=== PATIENT | male | born 1960 | race Caucasian/White ===

== ENCOUNTER 2022-01-12 22:41 | Emergency (ER) | payer BC, SELFPAY ==
[2022-01-12 23:01] VITALS: BP 131/82; PULSE 68; RESP 18; TEMP 35.5; O2SAT 95; BMI 27.9
--- NOTE | 2022-01-13 00:35 | ED.ABDPAIN ---
HPI - Abdominal Pain General Chief Complaint: Unspecified Complaint, Adult Stated Complaint: Large lump on abdomen Time Seen by Provider: 01/12/22 23:47 History of Present Illness HPI narrative: 61-year-old man presenting to the emergency department with concern of abdominal mass/swelling. 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 Last night belly was really tented up centrally he demonstrates and rather alarming. Admittedly upon waking this morning was mproved. Indicates that he was pushing on abdomen here in the ER little bit left of center feeling gurgling but that seems to have resolved. Normal bowel pattern. Does not indicate that he has been straining at stool. No melena or hematochezia is described. No nausea. Is seeing Urology for urgency. Has been taking a couple tabs of Advil p.m. most nights. Is wondering whether he should be continuing ibuprofen. Some chronic pain with radiculitis of the neck and shoulder anticipating further injections. Related Data Home Medications Medication Instructions Recorded Confirmed fluticasone furoate 200 inhalation 01/12/22 mcg-vilanterol 25 mcg/dose inhalation powder (Breo Ellipta) meloxicam 15 mg tablet mg 01/12/22 omeprazole magnesium PO Heart Burn 01/12/22 oxybutynin chloride 10 mg mg PO 01/12/22 tablet,extended release 24 hr tamsulosin 0.4 mg capsule mg PO 01/12/22 trospium 60 mg capsule,extended mg PO 01/12/22 release 24 hr Allergies Allergy/AdvReac Type Severity Reaction Status Date / Time No Known Drug Allergies Allergy Verified 01/12/22 23:12 Review of Systems Status of ROS Reports: 6 or more systems reviewed and unremarkable except as noted in History and below Exam Narrative: Exam Narrative: Pleasant. NAD. A little hard of hearing. Moving all extremities without difficulty. Transitions without difficulty. Breathing easily. Lungs clear. Cardiovascular with regular rate and rhythm Abdomen normoactive bowel sounds. Is soft. Ventral defect is noted a few inches caudal to the umbilicus. Increasing abdominal pressure/sitting up confirms moderate diastasis recti. I do not appreciate anything extruding through. No erythema no particular tenderness. Const: Vital Signs, click to edit/add: Vital Signs - 24 hr 01/12/22 23:01 Temperature 95.9 F L Pulse Rate [Right Pulse Oximeter] 68 Respiratory Rate 18 Blood Pressure [Ri ght Upper Arm] 131/82 Pulse Oximetry 95 Oxygen Delivery Me thod Room Air Documenting provider has reviewed patient's vital signs: yes Course Vital Signs Vital signs: Initial Vital Signs Temperature 95.9 F L 01/12/22 23:01 Temperature Source Temporal Artery Scan 01/12/22 23:01 Pulse Rate 68 01/12/22 23:01 Pulse Rhythm 01/12/22 23:01 Pulse Strength 3+ Normal 01/12/22 23:01 Respiratory Rate 18 01/12/22 23:01 Blood Pressure 131/82 01/12/22 23:01 Blood Pressure Mean 98 01/12/22 23:01 Blood Pressure Position Sitting 01/12/22 23:01 Pulse Oximetry 95 01/12/22 23:01 Oxygen Delivery Method 01/12/22 23:01 Vital Signs Temperature 95.9 F L 01/12/22 23:01 Pulse Rate 68 01/12/22 23:01 Respiratory Rate 18 01/12/22 23:01 Blood Pressure 131/82 01/12/22 23:01 Pulse Oximetry 95 01/12/22 23:01 Oxygen Delivery Method 01/12/22 23:01 Temperature 95.9 F L 01/12/22 23:01 Pulse Rate 68 01/12/22 23:01 Respiratory Rate 18 01/12/22 23:01 Blood Pressure 131/82 01/12/22 23:01 Pulse Oximetry 95 01/12/22 23:01 Oxygen Delivery Method 01/12/22 23:01 MDM - Abdominal Pain MDM Narrative Medical decision making narrative: There is not appear to be any persistent herniation here at this time I wonder if diphenhydramine that he has been taking regularly in his combination sleep med is contributing to some urinary symptoms? Medical Records Attestation: I reviewed the patient's medical records. Discharge Plan Discharge Clinical Impression: Ventral hernia, Diastasis recti Patient Disposition: Home, Self-Care Condition: Improved Additional Instructions: Do try not to strain at stool. Be sure to stay well hydrated to keep stool soft in this regard. If you have persistent swelling at this area and especially if it is uncomfortable/painful, lay down flat on the floor on your back. Be sure your head is back. Bring your knees up keeping your feet flat on the floor to soften your belly. Begin to massage gently to try to push the lump back in. If you can not accomplish this and pain is persisting, see redness, be seen/return to the emergency department for evaluation. You might want to make an appointment with General surgery to discuss this here if it begins to causing more trouble. Surgery might be a possibility. As far as your pain medication goes, yes chronic use of ibuprofen can cause stomach pain, ulcers, gastritis among other things. Usually helps to take it with a little bit of food or perhaps if you are also accompanying at at least once daily with a proton pump inhibitor like Prilosec/omeprazole. Meloxicam is not entirely benign with regard to similar effects on the stomach. There are number of options for sleep aids in addition to diphenhydramine; as discussed doxylamine and melatonin being some of these. Depending on your needs and side effects, there might be better alternatives for you. You might want to have a follow-up visit to discuss them with your primary care provider. Prescriptions: No Action oxybutynin chloride 10 mg tablet extended release 24hr PO meloxicam 15 mg tablet Label Comments: TAKE 1 TABLET BY MOUTH DAILY WITH FOOD tamsulosin 0.4 mg capsule PO trospium 60 mg capsule,extended release 24hr PO fluticasone furoate-vilanterol [Breo Ellipta] 200-25 mcg/dose blister with device INHALATION Label Comments: INHALE 1 PUFF BY MOUTH DAILY omeprazole magnesium [[employer] (omeprazole)] PO Follow Up/Referrals: Gabe Ma MD [Primary Care Provider] - Stand Alone Forms: [employer] Info Instructions
--- OUTSIDE RECORDS SUMMARY | 2022-01-13 00:51 | XMS_ITS | Clinical Summary ---
:1960 Author Organization [facility] [place] [address] Care Team Providers Name Role Phone Gabe Ma MD Primary Care Provider [phone] Allergies No known active allergies Medications Medication Sig Dispensed Refills Start Date End Date Status loratadine (CLARITIN) Take 1 tablet by 0 01/12/2016 Active 10 mg tablet mouth once daily. omeprazole Take 1 tablet by 0 08/26/2016 A ctive (PRILOSEC-OTC) 20 mg mouth once daily. tabletIndications: Chronic GERD aspirin chewable 81 mg Take 1 tablet by 0 07/05/2018 Active chewable tablet mouth once daily with a meal. albuterol HFA 90 Inhale 1-2 Puffs 1 Inhaler 1 06/25/2019 Active mcg/actuation by mouth every 4 inhalerIndications: hours if needed. Exacerbation of asthma, unspecified asthma severity, unspecified whether persistent tamsulosin (FLOMAX) Take 2 Capsules 60 Capsule 12 03/01/2021 Active 0.4 mg (0.8 mg) by mouth capsuleIndications: once daily after BPH without urinary a meal. obstruction benzonatate (TESSALON) Take 1-2 Capsules 30 Capsule 0 04/20/20 Active 100 mg (100-200 mg) by capsuleIndications: mouth 3 times Bronchitis daily if needed for Cough. albuterol HFA Inhale 2 Puffs by 1 Each 0 04/20/2021 Active (PRO-AIR; VENTOLIN; mouth every 4 PROVENTIL) 90 hours if needed mcg/actuation (cough or inhalerIndications: wheezing). Bronchitis trospium 60 mg Take 1 Capsule 30 Capsule 11 06/21/2021 Active Extended-Release (60 mg) by mouth capsuleIndications: once daily before Overactive bladder a meal. Breo Ellipta INHALE 1 PUFF BY 60 Each 12 07/25/2021 Active 200mcg/25mcg MOUTH DAILY inhalerIndications: Exacerbation of asthma, unspecified asthma severity, unspecified whether persistent Active Problems Problem Noted Date Benign essential HTN 01/01/2021 Chronic GERD 01/01/2021 BPH without urinary obstruction 01/01/2021 Dysphagia, unspecified(787.20) 01/27/2016 Overview: EGD 12/2015 normal, small hiatal hernia, try omeprazole Allergic rhinitis due to pollen 08/25/2015 Osteoarthritis of hand 08/25/2015 Varicose vein of leg 08/25/2015 Right varicocele 08/25/2015 Resolved Problems Problem Noted Date Resolved Date Routine adult health maintenance 12/26/2018 020 Overview: Colonoscopy 11/2018 diverticulosis, repea t in 10 years Mild intermittent asthma without complication 08/25/2015 06/28/2021 Encounters Date Type Specialty Care Team Description 01/12/2022 Travel 01/12/2022 Nurse Triage Gabe Ma MD Abdominal Injury 11/26/2021 Orders Only Scanner <No scans attac hed> from Last 3 Months Immunizations Name Administration Dates Next Due Influenza, IIV3 (Age 6-35 mos) 04/28/2017 Influenza, IIV4 01/30/2018 Tetanus Toxoid, Unspecified 04/04/2016 Family History Medical History Relation Name Comments Heart Disease Father Hyperlipidemia Father Hypertension Father Seizures Sister Anesthesia Problem No Family History Relation Name Status Comments Father Sister Social History Tobacco Use Types Packs/Day Years Used Date Never Smoker Smokeless Tobacco: Never Used Tobacco Cessation: Counseling Given: Yes Alcohol Use Standard Drinks/Week Comments Not Currently 14 (1 standard drink = 0.6 oz pure alcoh ol) quit 10/2018 Alcohol Habits Answer Date Recorded How often do you have a drink containing 4 or more times a w orutsararmiut 07/05/2018 alcohol? How many drinks containing alcohol do you have 3 or 4 07/05/2018 on a typical day when you are drinking? How often do you have six or more drinks on one Weekly 07/20/2018 occasion? Comment: quit 10/201811/07/2019 Sex Assigned at Date Recorded Not on file COVID-19 Exposure Response Date Recorded In the last 10 days, have you been in contact with No / Unsu re 01/12/2022 4:10 PM CDT someone who was confirmed or suspected to have Coronavirus/COVID-19? 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 Height 171.5 cm (5' 7.52) 01/01/2021 3:54 PM CDT Body Mass Index 28.05 01/01/2021 3:54 PM CDT Plan of Treatment Health Maintenance Due Date Last Done Comments COVID-19 vaccine series (#1) 05/14/1960 Pneumococcal series for age 19-64 11/11/1965 (1 - PCV) Tdap 11/11/1970 Zoster (shingles) series for age 0711/11/2009 50+ (1 of 2) Depression screening for age 12+ 11/06/2020 11/07/2019, 06/2017, 08/26/2016, Additional history exists Influenza for age 50-64 12/30/2021 01/30/2018 BMI (ht and wt on same day) for 01/01/2022 01/01/2021, 09/0 06/2020, age 18+ 08/07/2020, Additional history exists Lipids for age 45-75 11/06/2024 11/07/2019, 07/20/2018, 08/25/2015 Tetanus booster 04/05/2026 04/05/2016 [facility] Colonoscopy through age 75 12/26/2028 12/26/2018, 9, 12/26/2018, Additional history exists Hepatitis C screening for age Completed 08/06/2018, 2015 18-79 Procedures Procedure Name Priority Date/Time Associated Diagnosis Comme nts SCAN-OPERATIVE/PROC 11/26/2021 12:00 AM R esults for this EDURE REPORT CDT procedure are i n the results section. from Last 3 Months Results SCAN-OPERATIVE/PROCEDURE REPORT (11/26/2021 12:00 AM CDT) Narrative This result has an attachment that is no t available. Scanner OTHER from Last 3 Months Insurance Payer Benefit Plan / Subscriber ID Effective Dates Phone Addre ss Type Group [employer] [id number] 2020-Presen [address] [address] [place] t [facility], [place] [address] [employer] [place] [employer] [id number] 2018-Present [address] [address] [place] [address] [employer] Vendor[employer]Instit[employer] Other 05/01/2000 [id number] (Home) [place], [place] [address] Care Teams Analytical Research Program Manager Relationship Specialty Start Date End Date Gabe Ma MD PCP - General Family Practice 07/18/18 [address] [place] [address]
--- OUTSIDE RECORDS SUMMARY | 2022-01-13 00:51 | XMS_ITS ---
:1960 Author Care Team Providers Name Role Phone ARLEN SILVESTRE MD Primary Care Provider [phone] Allergies None recorded. Medications Name Status Start Date Stop Date ? ? benzonatate 100 mg capsule Active ? Not a vailable Breo Ellipta 200 mcg-25 mcg/dose powder for inhalation Active ? Not available meloxicam 15 mg tablet Active ? Not avail able TAKE 1 TABLET BY MOUTH DAILY WITH FOOD oxybutynin chloride ER 10 mg tablet,extended release 24 hr Activ e ? Not available oxycodone-acetaminophen 5 mg-325 mg tablet Active ? Not available TAKE ONE-HALF TO 1 TABLET BY MOUTH EVER Y 4 TO 6 HOURS NEEDED. MAXIMUM DAILY DOSE IS 6. CONTINUE TO WEAN OFF FROM THIS MED prednisone 20 mg tablet Active ? Not avai lable tamsulosin 0.4 mg capsule Active ? Not av ailable trospium ER 60 mg capsule,extended release 24 hr Active ? Not available Ventolin HFA 90 mcg/actuation aerosol inhaler Active ? Not available INHALE 2 PUFFS BY MOUTH EVERY 4 HOURS NEEDED FOR COUGH OR WH EEZING Problems None recorded. Procedures None recorded. Results Lab Results None recorded. Past Encounters 11/26/2021 Increased Frequency of Urination; Slowin g of Urinary Stream; Urgent Desire to Urinate Van Garnica MD: [address] [place] [address], Ph. 11/17/2021 Benign Prostatic Hyperplasia with Outflo w Obstruction Van Garnica MD: [address] [place] [address], Ph. Social History None recorded. Vaccine List None recorded. Plan of Care Patient Instructions Patient to F/U with his provider Reminders Provider Appointments None recorded. ? ? Lab None recorded. ? ? Referral None recorded. ? ? Procedures None recorded. ? ? Surgeries None recorded. ? ? Imaging None recorded. ? ? Vitals None recorded.
--- OUTSIDE RECORDS SUMMARY | 2022-01-13 00:51 | XMS_ITS | Encounter Summary ---
:1960 Author Care Team Providers Name Role Phone Tiana Ma MD Primary Care Provider [phone] Reason for Visit Urocuff Assessment and Plan Assessment Note Patient here for UroCuff Procedure 1. Benign prostatic hyperplasia with ou tflow obstruction Discussion Note: None recorded.Patient educational handouts: No information available. Plan of Care Patient Instructions Patient to F/U with his provider Reminders Provider Appointments Established 10 02/23/2022 9:30AM Van Garnica MD Lab None recorded. ? ? Referral None recorded. ? ? Procedures None recorded. ? ? Surgeries None recorded. ? ? Imaging None recorded. ? ? Medications Name Start Date ? ? benzonatate 100 mg capsule ? Breo Ellipta 200 mcg-25 mcg/dose powder for inhalation ? INHALE 1 PUFF BY MOUTH DAILY meloxicam 15 mg tablet ? TAKE 1 TABLET BY MOUTH DAILY WITH FOOD oxybutynin chloride ER 10 mg tablet,extended release 2 4 hr ? oxycodone-acetaminophen 5 mg-325 mg tablet ? TAKE ONE-HALF TO 1 TABLET BY MOUTH EVER Y 4 TO 6 HOURS NEEDED. MAXIMUM DAILY DOSE IS 6. CONTINUE TO WEAN OFF FROM THIS MED prednisone 20 mg tablet ? tamsulosin 0.4 mg capsule ? trospium ER 60 mg capsule,extended release 24 hr ? Ventolin HFA 90 mcg/actuation aerosol inhaler ? INHALE 2 PUFFS BY MOUTH EVERY 4 HOURS NEEDED FOR C OUGH OR WHEEZING Medications Administered None recorded. Vitals None recorded. Results Lab Results None recorded. Allergies None recorded. Problems None recorded. Procedures None recorded. Vaccine List None recorded. Social History None recorded. Functional Status Unknown. Past Encounters 11/17/2021 Benign Prostatic Hyperplasia with Outflo w Obstruction Van Garnica MD: [address] [place] [address], Ph. History of Present Illness None recorded. Review of Systems ? Comprehensive General Adult ROS Reported By: Patient Constitutional: Constitutional: no fever, no chills Eyes: Eyes: no dry eyes, no vision change, no irritation Endocrine: Endocrine: no fatigue, no in creased thirst Cardiovascular: Cardiovascular: no chest danna n, no palpitations Integumentary: Skin: no rashes, no change i n skin color Respiratory: Respiratory: no wheezing, no cough, no shortness of breath Gastrointestinal: Gastrointestinal: no abdomin al pain, no nausea, no vomiting, no constipation, no GERD Musculoskeletal: Musculoskeletal: no neck danna n, no back pain Neurologic: Neurologic: no tremor, no di zziness, no numbness, no headaches Genitourinary: Genitourinary: no incontinen ce, no difficulty urinating ENMT: Ears: no ear pain. Mouth/Thr oat: no sore throat Allergic/Immunologic: Allergy/Immunologic: no itch ing, no hives Hematologic/Lymphatic: Hematologic/Lymphatic no swo llen glands, no excessive bleeding Psychiatric: Psych: no hallucinations, (n ormal) sleep disturbances: mismatch of sleep / wake janneth edule with lifestyle needs Physical Exam None recorded.
--- OUTSIDE RECORDS SUMMARY | 2022-01-13 00:51 | XMS_ITS | Encounter Summary ---
:1960 Author Care Team Providers Name Role Phone Tiana Ma MD Primary Care Provider [phone] Reason for Visit Cystoscopy; TRUS volume study Assessment and Plan 1. Increased frequency of urination - UroCuff reviewed with patient, marvin ce of high-pressure high flow. - PVR 33 mL - AUA SS: 24 - PSA: 0.99 ng/mL - Cysto: Bilobar prostate with high medi an bar - TRUS volume 33 cc - We discussed the natural history of vo iding dysfunction including primary bladder outlet obstruction vs detrusor instability vs combination. We discussed the role of medications in the management of B PH including alpha blockers, 5-MAMADOU, and anticholinergics/beta agonists including their mechanisms of action. --> Will add Myrbetriq to Trospium - We discussed various bladder outlet pr ocedures including MISTs (UroLift, Rezum) and traditional invasive procedures (Greenlight PVP, Bipolar TURP). We reviewed risks and benefits of each including ant icipated long-term outcomes. To further evaluate each of these options as a potential treatment option I will set him up for a cystoscopy and TRUS volume only to determine volume and status of medial lo be; as well as a pressure flow study to confirm obstruction in accordance with AUA guidelines. - See discussions below regarding each p otential course of action. 2. Slowing of urinary stream - As above 3. Urgent desire to urinate - As above Discussion Note: None recorded.Patient educational handouts: No information available. Plan of Care Reminders Provider Appointments Established 02/23/2022 9:30AM Van Garnica MD Lab None [...] None recorded. Functional Status Unknown. Past Encounters 11/26/2021 Increased Frequency of Urination; Slowin g of Urinary Stream; Urgent Desire to Urinate Van Garnica MD: [address] [place] [address], Ph. 11/17/2021 Benign Prostatic Hyperplasia with Outflo w Obstruction Van Garnica MD: [address] [place] [address], Ph. History of Present Illness Note: <div>61-year-old gentleman who follows with me in our [place] clinic for urinary frequency, urinary urgency, and weakened urinary stream. He has tried and failed combination therapy of alpha-do and anticholinergic. He did complete a Urocuff for my review which notes high-pressure high flow, he is here today for cystoscopy and TRUS volume study for further consideration of outlet procedure.</div> Review of Systems None recorded. Physical Exam None recorded.
== END 2022-01-13 01:00 | disposition home or self-care (01) ==
LOC: ED 01-13 00:49
PROVIDERS: Emergency Provider Family Medicine; PCP Family Medicine
DX: K43.9 Ventral hernia without obstruction or gangrene (principal); M62.08 Separation of muscle (nontraumatic), other site
CPT/HCPCS: 99282; 99283

== ENCOUNTER 2022-03-29 08:26 | Day surgery (SDC) | payer BC, SELFPAY ==
[2022-03-29] VITALS (11 sets, daily range): BP systolic 103–124; BP diastolic 71–78; PULSE 58–83; RESP 16; TEMP 36.1–36.5; O2SAT 94–97; BMI 28.7
[2022-03-29] MEDS: SODIUM CHLORIDE 0.9 % (FLUSH) 10 ML SYRINGE IVF (09:00)
[2022-03-29] MEDS: LACTATED RINGERS 1000 ML 1,000 ML 100 ML IV (09:00)
--- NOTE | 2022-03-29 09:07 | SUR.PREOP ---
HOME COVID ANTIGEN TEST NEGATIVE.
[2022-03-29] MEDS: CEFAZOLIN 2 GM INJ IVP (10:47)
[2022-03-29] MEDS: BUPIVACAINE 0.25% 30 ML INJECTION (11:25)
--- NOTE | 2022-03-29 11:36 | PM.GSPRC ---
Operative Note Date of procedure: 03/29/22 Type of Procedure: Ventral hernia repair with placement of mesh Procedure Description: After discussing the risks and benefits of the procedure, the patient signed informed consent.? The operative site was marked and the patient was brought to the operating room and placed on the operating table in supine position.? Care was taken to pad the patient's pressure points.?? The patient was then intubated by anesthesia.?? The operative site was then prepped and draped in the usual sterile fashion.? A time-out was then performed. A curvilinear incision was made at the umbilicus. Dissection was carried down into the subcutaneous tissue using cautery. The hernia sac was encountered and care was taken to not enter it. Dissection was taken down to the fascia, and the umbilical stock was carefully dissected off of the hernia sac. Once the hernia sac was dissected out circumferentially, it was reduced. The fascial edges were then cleared circumferentially. Evidence of a left lateral epigastric hernia. The 2 fascial defects were then connected with the resulting defect measuring approximately 2 cm in size. A preperitoneal pocket was created using a combination of blunt dissection and cautery. Hemostasis appeared adequate. Once the posterior fascia was clear, a piece of medium Ventralex ST hernia mesh was placed in the preperitoneal space with care to ensure that it laid flat. This was secured into place using 2 0 PDS interrupted sutures. The tails were then trimmed and the fascial opening was closed with a running 0 Vicryl. Local anesthetic was injected into the fascia, skin and subcutaneous tissues. The umbilicus was reapproximated to the fascia. The skin was then closed with running absorbable suture. A sterile dressing was then applied. ? The patient was then woken and transported to the recovery area in stable condition. ? The patient tolerated the procedure well. Findings: Umbilical hernia, epigastric hernia. Repaired with placement of mesh. Anesthesia: GETA Surgeon: Michelle Glasgow MD Estimated blood loss (mL): 5 Condition: stable Disposition: PACU
--- NOTE | 2022-03-29 12:13 | W.ANESCHARGE ---
Anesthesia Charges Start Date/Time Anesthesia Start Date: 03/29/22 Anesthesia Start Time: 10:39 Stop Date/Time Anesthesia Stop Date: 03/29/22 Anesthesia Stop Time: 11:50 Summary Emergency: No
--- NOTE | 2022-03-29 12:13 | W.ANESCHARGE ---
Anesthesia Charges Start Date/Time Anesthesia Start Date: 03/29/22 Anesthesia Start Time: 10:39 Stop Date/Time Anesthesia Stop Date: 03/29/22 Anesthesia Stop Time: 11:50 Summary Emergency: No
== END 2022-03-29 13:00 | disposition home or self-care (01) ==
PROVIDERS: PCP Family Medicine; Visit Provider Surgery
PROC: (CPT 49560; principal; 2022-03-29 09:45)
DX: K43.9 Ventral hernia without obstruction or gangrene (principal); K42.9 Umbilical hernia without obstruction or gangrene
CPT/HCPCS: 49560; 49568; 00832; C1781; J0330; J0690; J1100; J2405; J2704; J3010; J3490; J7120

== ENCOUNTER 2022-08-19 14:00 | Outpatient (RCR) | payer OTHER, BC, SELFPAY | END 2022-08-19 15:09 | disposition home or self-care (01) | PROVIDERS: PCP Family Medicine; Visit Provider Physician Assistant | DX: M47.892 Other spondylosis, cervical region (principal); M54.2 Cervicalgia; M54.12 Radiculopathy, cervical region; Z51.89 Encounter for other specified aftercare | CPT/HCPCS: 97110; 97140; 97161 ==

== ENCOUNTER 2024-03-22 15:26 | Outpatient (CLI) | payer OTHER, SELFPAY ==
--- OUTSIDE RECORDS SUMMARY | 2024-03-22 15:29 | XMS_ITS | Clinical Summary ---
Author Organization [facility] Address [address] [place] [address] Care Team Providers Care Private Tutor Name Role Phone Anil Gabe Franklin Primary Care Provider [phone] Allergies No known active allergies Medications albuterol HFA (VENTOLIN HFA) 90 mcg/actuation Inhl inhaler INHALE 1 TO 2 PUFFS BY MOUTH EVERY 4 HOURS NEEDED FOR SHORTNESS OF BREATH Active aspirin 81 mg oral chewable tablet Chew 1 tablet (81 mg) Daily. Active loratadine (CLARITIN) 10 mg oral tablet Take 1 tablet (10 mg) by mouth Daily. Active omeprazole magnesium (PRILOSEC OTC) 20 mg oral delayed release tablet Take 1 tablet (20 mg) by mouth Daily. Active tolterodine (DETROL) 2 mg oral tablet Take 1 tablet twice a day by oral route. Active predniSONE (DELTASONE) 20 mg oral tablet Take 2 tablets (40 mg) by mouth Daily. 4 04/08/20 24 Active predniSONE (DELTASONE) 20 mg oral tablet Take 1 tablet (20 mg) by mouth once daily. 14 tablet 4 Active Active Problems Problem Noted Date Diagnosed Date Cubital tunnel syndrome, left 12/11/2023 Numbness and tingling in left hand 04/14/2023 Primary osteoarthritis of left wrist 04/14/2023 S/P TURP (status post transurethral resection of prostate) 06/24/2022 Benign prostatic hyperplasia 06/21/2022 Benign essential HTN 01/01/2021 Chronic GERD 01/01/2021 Dysphagia 01/27/2016 Overview (03/20/2024): EGD 12/2015 normal, small hiatal hernia, try omeprazole Osteoarthritis of hand 08/25/2015 Varicose vein of leg 08/25/2015 Right varicocele 08/25/2015 Allergic rhinitis due to pollen 08/25/2015 Encounters Date Type Department Care Team Description 03/21/2024 10:00 AM SUPERVISOR CARPENTERS Office Visit [facility] [address] [place] [address] Shadia Waterman MD Other vascular headache (Primary Dx) from Last 3 Months Family History Medical History Relation Comments Migraines Mother Relation Status Comments Mother Social History Tobacco Use Types Packs/Day Years Used Date Smoking Tobacco: Never Smokeless Tobacco: Never Tobacco Cessation:Counseling Given: Not Answered Alcohol Use Standard Drinks/Week Comments Not Asked 0 (1 standard drink = 0.6 oz pur e alcohol) None since 2018 Sex and Gender Information Value Date Recorded Sex Assigned at Not on file Legal Sex Male 2:26 PM SUPERVISOR CARPENTERS Gender Identity Not on file Sexual Orientation Not on file Plan of Treatment Health Maintenance Due Date Last Done Comments Colonoscopy 1960 Lipid Screening 1960 Anxiety Screening (LIZETH-2) 11/11/1960 Depression Assessment (PHQ-2) 11/11/1960 Adult Tetanus Booster 11/11/1978 Yearly Review of HCD 11/11/2009 Zoster Vaccine (1 of 2) 11/11/2009 COVID-19 Vaccine ( - 2023-2 5 season) 2023 Influenza Vaccine (#1) 2023 8, 04/28/2017 RSV Vaccines (1 - 1-dose 75+ series) 11/11/2034 Hepatitis C Screening Completed 08/06/2018 Pneumococcal <65 Aged Out No longer e ligible based on patient's age to complete this topic Procedures Procedure Name Priority Date/Time Associated Diagnosis Comments SEDIMENTATION RATE - WESTERGREN ([facility]) Routine 03/21/2024 10:00 AM SUPERVISOR CARPENTERS Other vascular headache C-REACTIVE PROTEIN, QUANT ([facility]) Routine 03/21/2024 10:00 AM SUPERVISOR CARPENTERS Other vascular headache from Last 3 Months Results * C-REACTIVE PROTEIN, QUANT ([facility]) (03/21/2024 10:00 AM SUPERVISOR CARPENTERS) C-Reactive Protein Quantitave ([facility]) <1 0 - 10 mg/L [facility] 1 Blood 03/21/2024 10:0 0 AM SUPERVISOR CARPENTERS 03/20/2024 11:00 PM SUPERVISOR CARPENTERS Narrative [facility] 1 - 03/22/2024 9:11 AM SUPERVISOR CARPENTERS Performed at: [facility] [id number] Computer Networking Instructor: Hansel Swann MD, Phone: [phone] us Shadia Waterman MD [facility] ORDERABLES Final Res ult Performing Organization Address [facility] de Phone Number [facility] 1 * SEDIMENTATION RATE - WESTERGREN ([facility]) (03/21/2024 10:00 AM SUPERVISOR CARPENTERS) Sed Rate- Westergren ([facility]) 3 0 - 30 mm/hr [facility] 1 Blood 03/21/2024 10:0 0 AM SUPERVISOR CARPENTERS 03/20/2024 11:00 PM SUPERVISOR CARPENTERS Narrative [facility] 1 - 03/22/2024 9:11 AM SUPERVISOR CARPENTERS Performed at: [facility] [id number] Computer Networking Instructor: Hansel Swann MD, Phone: [phone] us Shadia Waterman MD [facility] ORDERABLES Final Res ult Performing Organization Address [facility] Co de Phone Number [facility] 1 from Last 3 Months Insurance [facility] [employer] Care Teams Private Tutor Relationship Specialty Start Date End Date Gabe Ma [address] [place] [address] PCP - General Family Medicine 03/21/24
--- OUTSIDE RECORDS SUMMARY | 2024-03-22 15:29 | XMS_ITS | Encounter Summary ---
Author Organization [facility] Address [address] [place] [address] Care Team Providers Care Dry Kiln Feeder Name Role Phone MaGabe anderson Primary Care Provider [phone] Reason for Referral * Consultation (Urgent (within 2 weeks) ) - Open Specialty Diagnoses / Procedures Referred By Julee gallegos Referred To Contact Ophthalmology Diagnoses Other vascular headache Shadia Waterman MD [address] [place] [address] [address] [place] [address] Phone: tel: fax: Referral ID Status Reason Start Date Expiration Date V isits Requested Visits Authorized [id number] Open Specialty Services Required 03/21/2024 1 1 Comments Concern for blurred vision and GCA CLIPPER * Other (Routine) - Open Specialty Diagnoses / Procedures Referred By Julee gallegos Referred To Contact Diagnoses Other vascular headache Procedures N NEUROLOGY APPOINTMENT Sahdia Waterman MD [address] [place] [address] [address] [place] [address] Phone: tel: fax: Referral ID Status Reason Start Date Expiration Date Visits Re quested Visits Authorized [id number] Open 04/19/2024 1 1 CLIPPER * (Routine) - Open Specialty Diagnoses / Procedures Referred By Julee t Referred To Contact Diagnoses Other vascular headache Procedures MRA HEAD W/O CON Shadia Waterman MD [address] [place] [address] [address] [place] [address] Phone: tel: fax: Referral ID Status Reason Start Date Expiration Date Visits Re quested Visits Authorized [id number] Open 03/21/2024 1 1 CLIPPER Reason for Visit * Reason Comments Consultation Encounter Details Date Type Department Care Team ([facility] st Contact Info) Description 03/21/2024 10:00 AM FUR CLIPPER Office Visit [facility]rology - [facility] [address] [place] [address]. [address] [place] [id number] Shadia Waterman MD [address] [place] [address] [address] [place] [phone] Other vascular headache (Primary Dx) Social History Tobacco Use Types Packs/Day Years Used Date Smoking Tobacco: Never Smokeless Tobacco: Never Tobacco Cessation:Counseling Given: Not Answered Alcohol Use Standard Drinks/Week Comments Not Asked 0 (1 standard drink = 0.6 oz pur e alcohol) None since 2018 Sex and Gender Information Value Date Recorded Sex Assigned at Not on file Legal Sex Male 2:26 PM FUR CLIPPER Gender Identity Not on file Sexual Orientation Not on file documented as of this encounter Patient Instructions * Patient Instructions* Shadia Waterman MD - 03/21/2024 10:00 AM FUR CLIPPER [facility]: Call [phone] CLIPPER CLIPPER documented in this encounter Progress Notes * Shadia Waterman MD - 03/21/2024 10:00 AM CST Images from the original note were not included. [facility] [address] [place] [address], [address] [place] [address] Neurology Initial Note / Consultation Assessment and Plan: # Right temporal headache Patient has a new onset right sided headache near the confucianist. On the differential is GCA for which he will be getting a biopsy next week and imaging tomorrow. I will want to add on vascular imaging in addition to his MRI of the brain already ordered. If this is GCA I do want him to be on higher dose of prednisone for at least 2 weeks and then he can go back down to 40 mg. Additional medication ordered for the patient. He does not quite fit with this headache syndrome due to lack of jaw claudication and symptoms concerning for PMR, however will agree with treating it as such given the inflammatory marker elevation and his location of symptoms. Other differentials include cluster headache given his endorsement of eye swelling and worsening with sneezing, coughing, and bending forward which can all worsen cluster headaches. Prednisone also does help cluster headaches. Will also want him gary seen by ophthalmology due to concern for GCA but also patient has endorsed blurring vision and has never had an eye exam formally. -Will get MRI brain to rule out any structural abnormality such as tumor or mass. Will also check MRA to assess for any possible Aneurysms. -Referral to ophthalmology -ESR and CRP labs -Biopsy on Monday -Prednisone at 60 mg for 1 week, then 40 mg for 14 days, then 20mg for 7 days. The differential diagnosis, prognosis, pathophysiology, etiology, and treatment options, side effects and complications and the relative benefits of treatment options were discussed in detail with the patient and family. I will see the patient back in follow up in 1 month. If I can provide any further information or answer any questions in the interim, the patient or family is welcome to contact me. This note was created with the assistance of voice recognition software. Despite proofreading, occasional wrong word or '[id number]' substitutions may have occurred due to limitations of the software. Please read the chart carefully and recognize, using context, where these substitutions may haveoccurred. Shadia Waterman MD Fellowship trained Multiple Sclerosis and Neuroimmunology specialist [facility] Neurology Chief Complaint: Consultation History of Present Illness: HPI: Jai Laird is a 63 y.o. male who presents for a neurological consultation for evaluation ofheadaches at the request of Gabe Ma The headaches started on 03/03/24. Worse when standing up in the morning, when putting head downward, also shooting pain on right side of head as well as feeling pain behind eyes. CT at that time showing minimal age-related chronic small vessel disease without evidence of acute abnormality. Recommended to consider MRI if symptoms persisted given normal workup while in urgent care. CRP and ESR normal at that time he saw his PCP again on 03/15. Repeat inflammatory markers and lab testing was performed. MRI was ordered for his brain. Today he reports that he has had 3 days of steroids that has helped this headache. The pain is an intense ache. Mostly in the AM. He feels like he has to pop his jaw open. He has an appointment on Monday for a biopsy. MRI is tomorrow afternoon. He did not get migraines or headaches in the past. He notes bending forward, laughing, sneezing, or coughing worsening his headache. Notes his vision has been worsening for the last 4 months in the right eye. Denies any jaw claudication. No fevers. He felt like his ear was on fire just with the headaches starting. He notes shoulder and neck pain, but this was following an injury on the job complicated by a rotator cuff and labrum injury of the right s will. Frequency of headaches is daily since 03/03/24. Current severity of the headache is a 2/10, was up to 10/10. Duration of the headache is a few hours. Headache is alleviated by ibuprofen and tylenol, has been improving on steroids as well. There is not an aura. Denies associated nausea, photophobia, and phonophobia. Some worsening with laying down and bending forward. Denies tinnitus. He notes his right eye was a little more swollen upon one of the earlier days. But no eye redness or tearing. Sleeps about 6 hours per day. Past Medical History: Past Medical History: Diagnosis Date Allergic rhinitis due to pollen 08/25/2015 Benign essential HTN 01/01/2021 Benign prostatic hyperplasia 06/21/2022 Chronic GERD 01/01/2021 Cubital tunnel syndrome, left 12/11/2023 Numbness and tingling in left hand 04/14/2023 Osteoarthritis of hand 08/25/2015 Primary osteoarthritis of left wrist 04/14/2023 S/P TURP (status post transurethral resection of prostate) 06/24/2022 Past Surgical History: No past surgical history on file. Medications: Current Outpatient Medications: Medication Sig albuterol HFA (VENTOLIN HFA) 90 mcg/actuation Inhl inhaler INHALE 1 TO 2 PUFFS BY MOUTH EVERY 4 HOURS NEEDED FOR SHORTNESS OF BREATH aspirin 81 mg oral chewable tablet Chew 1 tablet (81 mg) Daily. loratadine (CLARITIN) 10 mg oral tablet Take 1 tablet (10 mg) by mouth Daily. omeprazole magnesium (PRILOSEC OTC) 20 mg oral delayed release tablet Take 1 tablet (20 mg) by mouth Daily. predniSONE (DELTASONE) 20 mg oral tablet Take 2 tablets (40 mg) by mouth Daily. predniSONE (DELTASONE) 20 mg oral tablet Take 1 tablet (20 mg) by mouth once daily. tolterodine (DETROL) 2 mg oral tablet Take 1 tablet twice a day by oral route. Allergy: Patient has no known allergies. Family History: Family History Problem Relation Name Age of Onset Migraines Mother Social History: Social History Socioeconomic History Marital status: Single Spouse name: Not on file Number of children: Not on file Years of education: Not on file Highest education level: Not on file Occupational History Not on file Tobacco Use Smoking status: Never Smokeless tobacco: Never Substance and Sexual Activity Alcohol use: Not on file Comment: None since 2018 Drug use: Not on file Sexual activity: Not on file Other Topics Concern Not on file Social History Narrative Not on file Social Drivers of Health Financial Resource Strain: Low Risk (01/05/2024) [facility] Financial Resource Strain Difficulty of Paying Living Expenses: 3 Difficulty of Paying Living Expenses: Not on file Food Insecurity: No Food Insecurity (01/05/2024) [facility] Food Insecurity Do you worry your food will run out before you are able to buy more?: 1 Transportation Needs: No Transportation Needs (01/05/2024) [facility] Transportation Needs Does lack of transportation keep you from medical appointments?: 1 Does lack of transportation keep you from work, meetings or getting things that you need?: 1 Physical Activity: Not on file Stress: Not on file Social Connections: Socially Integrated (01/05/2024) Received from [facility] Social Connections Do you often feel lonely or isolated from those around you?: 0 Intimate Partner Violence: Not on file Housing Stability: Low Risk (01/05/2024) Received from [facility] Housing Stability What is your housing situation today?: 1 Review of System: ROS: Pertinent positive and negative systems are described in the HPI; the remainder of the 14 systems are negative. Physical Exam: General: no acute distress, well appearing CV: No LE edema Pulm: normal work of breathing MSK: no joint swelling or deformity. No tenderness at this time to the right confucianist. Integument: no visible rash Psych: appropriate affect Neurological examination: Mental Status: The patient is alert and oriented. Recent memory is normal. The person is attentive with normal concentration. Language is fluent. Speech is of normal maria t and character. The speechis nondysarthric. Fund of knowledge is normal. Cranial Nerves: Visual meeks full to confrontation, no visual extinction. Funduscopic exam had difficulty and unable to visualize optic disc. Pupils equal round and reactive to light, no APD. OD 20/20 -1 and OS 20/20 -1 near card. Pursuits without saccadic intrusions and full in all directions. Nogaze deviation, dysconjugate gaze, or gaze palsy, no nystagmus, no ptosis. Facial sensation intact in all distributions of CN V. No facial asymmetry at rest or with activation on smile or eyebrow lift. Symmetric palate elevation, tongue midline with full lateral movements. No dysarthria observed. Motor: Tone is normal in all four extremities without fasciculations, atrophy or myoclonus. There are no involuntary movements. Muscle Strength: The strength was 5/5 in upper and lower extremities bilaterally. Reflexes: The reflexes are 2/4 for biceps, brachioradialis, triceps, patellar, and achilles tendon reflexes bilaterally and symmetrically. Sensory: The sensory examination is normal for light touch bilaterally and symmetrically. Romberg negative. Cerebellar: The cerebellar examination is normal to finger to nose test. Musculoskeletal system and Gait: The gait is normal based and station. No ataxia. Data: Labs reviewed 03/07/2024: ESR 2, CRP less than 3, 03/15/2024: ESR 6, CRP 21, WBC 7.4, normal BMP aside from glucose of 115 IMAGING: CT head w/o con 03/07/24 Impression: Minimal age-related and chronic small-vessel disease changes of the brain without evidence of acuteintracranial abnormality [] I have personally reviewed images and my impression is above. [x] Images not available for personal review. Report documented above. Shadia Waterman MD MIPS none TIME: I spent 67 minutes on the date of the encounter with this patient consisting of activities before, during, and after the encounter including time spent: Preparing to see the patient including review of the chart, tests, and/or outside records. Reviewing and verifying information regarding the chief complaint and history already recorded by ancillary staff and/or the patient. Obtaining history and performing medically appropriate evaluation. Counseling the patient regarding the diagnosis, additional diagnostic considerations, possible diagnostic testing, and any potential options for therapy, including conservative/lifestyle measures andpharmacotherapy including risks/benefits, side effects, and adverse effects. I also counseled the patient on how to contact me with any questions or concerns, new or worsening symptoms. Ordering medications, tests, and/or procedures, and documenting in the chart. CLIPPER documented in this encounter Plan of Treatment Scheduled Orders Name Type Priority Associated Diagnoses Orde r Schedule MRA HEAD W/O CON Imaging Routine Other vascular headache Expected: 03/21/2024, Expires: 05/21/2025 Scheduled Referrals Name Type Priority Associated Diagnoses Orde r Schedule REFERRAL OPHTHALMOLOGY Referral Routine Other vascular headache Ordered: 03/21/2024 documented as of this encounter Procedures Procedure Name Priority Date/Time Associated Diagnosis Comments C-REACTIVE PROTEIN, QUANT ([facility]) Routine 03/21/2024 10:00 AM FUR CLIPPER Other vascular headache SEDIMENTATION RATE - WESTERGREN ([facility]) Routine 03/21/2024 10:00 AM FUR CLIPPER Other vascular headache documented in this encounter Results * SEDIMENTATION RATE - WESTERGREN ([facility]) (03/21/2024 10:00 AM FUR CLIPPER) Sed Rate- Westergren ([facility]) 3 0 - 30 mm/hr [facility] 1 Blood 03/21/2024 10:0 0 AM FUR CLIPPER 03/20/2024 11:00 PM FUR CLIPPER Narrative [facility] 1 - 03/22/2024 9:11 AM FUR CLIPPER Performed at: - [facility] [id number] Epic Manager: Hansel Swann MD, Phone: [phone] us Shadia Waterman MD [facility] ORDERABLES Final Res ult [facility] 1 * C-REACTIVE PROTEIN, QUANT ([facility]) (03/21/2024 10:00 AM FUR CLIPPER) Pathologist [facility] C-Reactive Protein Quantitave ([facility]) <1 0 - 10 mg/L [facility] 1 Blood 03/21/2024 10:0 0 AM FUR CLIPPER 03/20/2024 11:00 PM FUR CLIPPER Narrative [facility] 1 - 03/22/2024 9:11 AM FUR CLIPPER Performed at: - [facility] [id number] Epic Manager: Hansel Swann MD, Phone: [phone] us Shadia Waterman MD [facility] ORDERABLES Final Res ult [facility] 1 documented in this encounter Visit Diagnoses Diagnosis Other vascular headache- Primary documented in this encounter Care Teams Dry Kiln Feeder Relationship Specialty Start Date End Date Gabe Ma [address] [place] [address] PCP - General Family Medicine 03/21/24 documented as of this encounter
--- OUTSIDE RECORDS SUMMARY | 2024-03-22 15:29 | XMS_ITS | Continuity of Care Document ---
Author Organization [facility] Address [address] [place] [address] Phone Care Team Providers Care Parachutist/Combatant Diver Qualified Name Role Phone Joe Rodarte MD Unavailable Unavailable Allergies, Adverse Reactions, Alerts Substance Reaction Status Criticality No Known Allergies Active No Inform ation Medications Medication Instructions Dosage Effective Dates (start - stop) Status Comments CLARITIN (unknown strength) Not Available - Active OMEPRAZOLE (unknown strength) Not Available - Active AEROSPAN (unknown strength) Not Available - Active BREO ELLIPTA (unknown strength) Not Available - Active Procedures Procedure Date Office/Outpatient Visit,Dora Duran 2016 X-Ray Exam Lwr Spine, Min 4 Views Advance Directives Directive Yes / No Effective Date File Name No Information Encounters Encounter Description Practice Location Reason(s) For Visit Diagnoses Date Provider Providers Copied on Encounter [facility], [address], [place], [place], [id number], [place] tel:[phone] [facility] No Information Cayden Diaz. [facility], [address] [place] [address], [address], [place], [place], [id number] , [place]. tel:[phone] [facility], [address], [place], [place], [id number], [place] tel:[phone] [facility] Other intervertebral disc displacement, lumbar region Mehbod Amir. [facility], [address] [place] [address] [address], [place], [place], [id number] , [place]. tel:[phone] Referring Provider: Piotr Chow, [place] [address], [place], [address]. tel:[phone] Family History Family Member Type Diagnosis Age At Onset No Information Payers Payer name Insurance type Covered green party ID Kofi doyle(s) [facility] [employer] [place] [id number] [facility] [id number] Social History Type Description Quantity Date Captured Comments Sex Male Smoking Status No Information Chief Complaint And Reason For Visit No Information Reason For Referral Reason For Referral No Information Plan Of Treatment Date Type Action Status Future Order: Radiology Order AP -Btb-Ilmw-Pjs Lum (APLatFlExL), Ordered on: Ordered History Of Present Illness Encounter Date Complaint History Of Prese nt Illness No Information Functional Status Date Functional Assessmen t No Information Instructions Date Instruction Additional Infor mation Weight Management Education Rela rudy to Overweight Weight management: I nstructed to return to General Practitioner timeframe: 1 Month. Related to Overweight Blood Pressure Management Relate d to Unspecified Essential Hypertension Instructed to return to General Practitioner timeframe: 1 Month. Related to Unspecified Essential Hypertension Assessments Type Assessment Date No Information Patient Care Teams Name Effective Dates (start - stop) Status Members No Information
--- OUTSIDE RECORDS SUMMARY | 2024-03-22 15:29 | XMS_ITS | Referral Summary ---
Author Organization [facility] Address [address] [place] [address] Care Team Providers Care Project Superintendent Name Role Phone Gabe Ma Franklin Primary Care Provider [phone] Encounters Date Type Department Care Team Description 03/21/2024 10:00 AM BURR BENCH OPERATOR Office Visit [facility] - [address] [place] [id number] Shadia Waterman MD Other vascular headache (Primary Dx) from Last 3 Months Allergies No known active allergies Medications albuterol [...] 08/25/2015 Allergic rhinitis due to pollen 08/25/2015 Social History Tobacco Use Types Packs/Day Years Used Date Smoking Tobacco: Never Smokeless Tobacco: Never Tobacco Cessation:Counseling Given: Not Answered Alcohol Use Standard Drinks/Week Comments Not Asked 0 (1 standard drink = 0.6 oz pur e alcohol) None since 2018 Sex and Gender Information Value Date Recorded Sex Assigned at Not on file Legal Sex Male 2:26 PM BURR BENCH OPERATOR Gender Identity Not on file Sexual Orientation Not on file Plan of Treatment Not on file Procedures Procedure Name Priority Date/Time Associated Diagnosis Comments SEDIMENTATION RATE - WESTERGREN ([facility]) Routine 03/21/2024 10:00 AM BURR BENCH OPERATOR Other vascular headache C-REACTIVE PROTEIN, QUANT ([facility]) Routine 03/21/2024 10:00 AM BURR BENCH OPERATOR Other vascular headache from Last 3 Months Results * C-REACTIVE PROTEIN, QUANT ([facility]) (03/21/2024 10:00 AM BURR BENCH OPERATOR) C-Reactive Protein Quantitave ([facility]) <1 0 - 10 mg/L [facility] 1 Blood 03/21/2024 10:0 0 AM BURR BENCH OPERATOR 03/20/2024 11:00 PM BURR BENCH OPERATOR Narrative [facility] 1 - 03/22/2024 9:11 AM BURR BENCH OPERATOR Performed at: 01 - [facility] [address] [place], [place] [id number] Experimental Physicist: Hansel Swann MD, Phone: [phone] us Shadia Waterman MD [facility] ORDERABLES Final Res ult [facility] 1 * SEDIMENTATION RATE - WESTERGREN ([facility]) (03/21/2024 10:00 AM BURR BENCH OPERATOR) Sed Rate- Westergren ([facility]) 3 0 - 30 mm/hr [facility] 1 Blood 03/21/2024 10:0 0 AM BURR BENCH OPERATOR 03/20/2024 11:00 PM BURR BENCH OPERATOR Narrative [facility] 1 - 03/22/2024 9:11 AM BURR BENCH OPERATOR Performed at: - [facility] [place] [employer] [place], [place] [id number] Experimental Physicist: Hansel Swann MD, Phone: [phone] us Shadia Waterman MD [facility] ORDERABLES Final Res ult [facility] 1 from Last 3 Months Insurance [facility] [place] [address] Care Teams Project Superintendent Relationship Specialty Start Date End Date Gabe Ma [address] [place] [address] PCP - General Family Medicine 03/21/24
--- NOTE | 2024-03-22 15:30 | CRLHL7_ITS ---
For Patients: As a result of the Century Cures Act, medical imaging exams and procedure reports are released immediately into your electronic medical record. You may view this report before your referring provider. If you have questions, please contact your health care provider. CLINICAL HISTORY: Temporal headaches. TECHNIQUE: 3D TOF MRA of the head was performed. 3D MIP reformats were performed at an independent workstation. COMPARISON: None available. FINDINGS: There is apparent intrinsic T1 hyperintense signal within the zavala of the mid intracranial right vertebral artery. The petrous, cavernous, and supraclinoid segments of the internal carotid arteries are within normal limits. The anterior and middle cerebral arteries are within normal limits. The anterior communicating artery is visualized and within normal limits. The intracranial left vertebral artery, basilar trunk, and bilateral posterior cerebral arteries are within normal limits. No intracranial proximal large vessel occlusion or flow-limiting luminal stenosis. No evidence of cerebral aneurysm or findings to suggest an arterial-venous shunting lesion. IMPRESSION: 1. No intracranial proximal large vessel occlusion, flow-limiting luminal stenosis, cerebral aneurysm, or arterial venous shunting lesion. 2. There is apparent intrinsic T1 hyperintense signal within the zavala of the mid intracranial right vertebral artery. While this may be artifactual, an underlying intramural hematoma in the setting of a dissection is not excluded in the appropriate clinical setting. If there is concern for dissection, further assessment with MRA of the head and neck, with T1-weighted imaging with fat saturation through the neck, versus CTA of the head and neck is recommended. Dictated by Gab Helton MD @ 03/22/2024 11:55:40 PM (Electronically Signed)
--- NOTE | 2024-03-22 15:30 | CRLHL7_ITS ---
For Patients: As a result of the Century Cures Act, medical imaging exams and procedure reports are released immediately into your electronic medical record. You may view this report before your referring provider. If you have questions, please contact your health care provider. CLINICAL HISTORY: Temporal headaches. TECHNIQUE: Multi-sequence, multiplanar MRI examination of the brain was performed. COMPARISON: None available. FINDINGS: There is no restricted diffusion in the brain to indicate the presence of acute ischemia. No intracranial hemorrhage, extra-axial collection, mass effect, or midline shift. Brain parenchymal volume and morphology are within normal limits for patient age. The ventricles are normal in size and morphology with incidental note made of a cavum septum pellucidum et vergae. There are several scattered T2/FLAIR hyperintense foci in the white matter of both hemispheres, nonspecific but most likely reflecting sequela of mild chronic small vessel ischemia. The orbits are unremarkable. The paranasal sinuses are unremarkable. The mastoid air cells are clear. The calvarium is unremarkable. IMPRESSION: 1. No acute intracranial abnormality. 2. Few scattered T2/FLAIR hyperintense foci in the white matter of both hemispheres. This is nonspecific but most likely reflect sequela of mild chronic small vessel ischemia. Dictated by Gab Helton MD @ 03/22/2024 11:50:54 PM (Electronically Signed)
--- OUTSIDE RECORDS SUMMARY | 2024-03-22 15:30 | XMS_ITS | Data Portability ---
Author Organization [facility], [facility] Address [address] [place] [address] Care Team Providers Care Sheet Sorter Name Role Phone ARLEN SILVESTRE Primary Care Provider Assessment No assessment recorded. Plan of Treatment Reminders Order Date Submit Date Provider Last Modified By Organization Details Last Modified Time Details Appointments [facility] 10 2024 02:40P M Van Garnica MD Not available Not available Not available Lab urinalys is, dipstick 2023 024 [email or web address] [facility], [address], [place], [address], 03/08/2024 12:41:14 culture, urine 2023 024 [facility], [address], [place], [address], 03/10/2024 09:37:24 Referral None recorded . Procedures cystosco py (PROC) 2023 024 [email or web address] Not available 02/27/2024 12:07:50 Surgeries None recorded . Imaging None recorded . Medication Orders solifena nazia 10 mg tablet 2023 024 [email or web address] [facility][id number], [address] , [place], [place], [phone], 10/17/2023 10:13:14 Myrbetri q 50 mg tablet,e xtended release 2023 024 [email or web address] [id number], [address] [facility], [place], [place], [phone], 02/26/2024 10:23:58 Botox 100 unit injectio n 2023 024 [email or web address] Not available 03/15/2024 15:09:02 Patient TargetsNo targets recorded. Patient InstructionsNo instructions recorded. Reason for Referral None Reported. Results Created Date Observation Date Name Description Value Unit Range Abnormal Flag Note LastModifiedBy Organization Detail LastModifiedTime 03/08/20 24 03/08/2024 URINE CULTU RE final report MICROB IOLOGY RESULT S SOURC E Void KNOWN ALLER RAKAN NKDA TREAT MENT n/a MEDIA PLATE D AT: Media plate d on 2023 @ 4:11 PM RESUL T No Growt h, No Furth er Anila p This lab resul t is being provi ded to you and your provi timothy at the same time in compl iance with the Centu ry Cures Act. Your provi timothy may not have had time to revie w and make recom menda tions based on the resul t. Pleas e allow up to one week for provi timothy revie w. Not Available [facility] [address], [place], [address], 03/10/2024 09:37:24 03/08/20 24 03/08/2024 urina lysis , dipst ick BLOOD Negati ve Not Available [facility] [address], [place], [address], 03/08/2024 12:39:43 03/08/20 24 03/08/2024 urina lysis , dipst ick NITRITES Negati ve Not Available [facility] [address], [place], [address], 03/08/2024 12:39:43 03/08/20 24 03/08/2024 urina lysis , dipst ick LEUKOCYTES Negati ve Not Available [facility] [address], [place], [address], 03/08/2024 12:39:43 Result Notes None recorded. Problems Name Problem SNOMED Code Status Onset Date Resolution Date Notes Provider Name and Address Organization Details Recorded Time Benign prostatic hyperplasia 016423225 Active 2022 Radha Brian briceño [facility] 14:05:21 Problem Notes None recorded. Procedures Surgical History Date Name Laterality Status Provider Name and Address Organization Details Recorded Time 03/15/20 24 Cystoscopy with Botox Injections completed Maritza Sales [facility] 03/15/2024 13:27:39 03/08/20 24 Urine Culture completed Tracy Cruz [facility] 03/08/2024 12:39:08 03/08/20 24 Urinalysis completed Tracy Cruz [facility] 03/08/2024 12:39:04 02/26/20 24 COMPLEX VISIT completed Van Garnica MD [address] [place] [address],[address], [place], [address], [facility] 02/25/2024 23:10:20 02/26/20 24 Bladder Scan completed Maritza Salse [facility] 02/26/2024 10:22:18 09/15/19 24 COMPLEX VISIT completed Van Garnica MD [address] [place] [address],[address], [place], [address], [facility] 09/15/2023 16:03:47 09/15/19 24 Bladder Scan completed Floresita Hampton [facility] 09/15/2023 15:13:01 03/03/20 23 Bladder Scan completed Van Garnica MD [address] [place] [address],[address], [place], [address], [facility] 03/03/2023 16:02:33 11/25/19 23 UroCuff completed Quyen Humphrey [facility] 11/24/2022 16:32:40 11/25/19 23 Bladder Scan completed Quyen Humphrey [facility] 11/24/2022 16:31:14 08/02/19 23 Bladder Scan completed Maritza Arroyo [facility] 08/01/2022 10:06:51 06/22/19 23 Fill and Pull/Voiding Trial/TOV completed Radha Hansonen [facility] 06/22/2022 14:06:25 03/23/20 22 Bladder Scan completed Van Garnica MD [address] [place] [address],[address], [place], [address], [facility] 03/23/2022 15:58:09 11/27/19 22 Cystoscopy- male completed Van Garnica MD [address] [place] [address],[address], [place], [address], [facility] 11/26/2021 14:21:20 11/27/19 22 TRUS- Volume size only completed Van Garnica MD [address] [place] [address],[address], [place], [address], [facility] 11/26/2021 16:35:07 11/18/19 22 UroCuff completed Gavin Schmidt [facility] 11/17/2021 11:28:52 11/18/19 22 Bladder Scan completed Gavin Schmidt [facility] 11/17/2021 11:23:35 procedure on knee completed Van Garnica MD [address] [place] [address],[address], [place], [address], [facility] 03/23/2022 15:58:19 procedure on ankle completed Van Garnica MD [address] [place] [address],[address], [place], [address], [facility] 03/23/2022 15:58:25 tonsillectomy completed Van harris MD [address] [place] [address],[address], [place], [address], [facility] 03/23/2022 15:58:31 procedure on elbow completed Maritza Sales [facility] 02/26/2024 10:24:51 Shoulder joint surgery completed Van Garnica MD [address] [place] [address],[address], [place], [address], [facility] 03/23/2022 15:58:51 Imaging Results None recorded. Procedure Notes None recorded. Medical Equipment None Reported. Allergies No known drug allergies Medications Name Sig Start Date Stop Date Status Note LastModified by Organization Details LastModified Time oxybutynin chloride ER 10 mg tablet,exte nded release 24 hr 03/23 completed Not Available Not Available Not Available tolterodine ER 4 mg capsule,ext ended release 24 hr Take 1 capsule every day by oral route. 02/25 completed Not Available Not Available Not Available hydrocodone 5 mg-acetamin ophen 325 mg tablet 02/25 completed Not Available Not Available Not Available senna 8.6 mg tablet TAKE 1 TABLET ORALLY DAILY NEEDED. TAKE WHILE ON NARCOTIC PAIN MEDICINE. STOP IF HAVING GREATER THAN 2 BOWEL MOVEMENTS PER DAY 08/01 completed Not Available Not Available Not Available tolterodine 1 mg tablet Take 1 tablet twice a day by oral route. 02/25 completed Not Available Not Available Not Available meloxicam 15 mg tablet TAKE 1 TABLET BY MOUTH DAILY WITH FOOD 03/23 completed Not Available Not Available Not Available prednisone 20 mg tablet 03/23 completed Not Available Not Available Not Available ciprofloxac in 250 mg tablet 08/01 completed Not Available Not Available Not Available oxycodone-a cetaminophe n 5 mg-325 mg tablet TAKE ONE-HALF TO 1 TABLET BY MOUTH EVERY 4 TO 6 HOURS NEEDED. MAXIMUM DAILY DOSE IS 6. CONTINUE TO WEAN OFF FROM THIS MED 03/23 completed Not Available Not Available Not Available tolterodine 2 mg tablet Take 1 tablet twice a day by oral route. active Not Available Not Available No t Available tamsulosin 0.4 mg capsule 08/01 completed Not Available Not Available Not Available benzonatate 100 mg capsule 03/23 completed Not Available Not Available Not Available Ventolin HFA 90 mcg/actuati on aerosol inhaler INHALE 1 TO 2 PUFFS BY MOUTH EVERY 4 HOURS NEEDED FOR SHORTNESS OF BREATH active Not Available Not Available No t Available oxycodone 5 mg tablet TAKE 1 TABLET BY MOUTH EVERY 6 HOURS NEEDED FOR PAIN 08/01 completed Not Available Not Available Not Available Botox 100 unit injection Take 100 units by injection route. 2023 active Not Available Not Available Not Avai lable solifenacin 10 mg tablet TAKE 1 TABLET BY MOUTH EVERY DAY 10/16 completed Not Available Not Available Not Available omeprazole active Not Available Not Av ailable Not Available Claritin active Not Available Not Avai lable Not Available trospium ER 60 mg capsule,ext ended release 24 hr 11/25 completed Not Available Not Available Not Available Toviaz 8 mg tablet,exte nded release Take 1 tablet every day by oral route. 02/25 completed Not Available Not Available Not Available Myrbetriq 50 mg tablet,exte nded release Take 1 tablet every day by oral route. 02/25 completed Not Available Not Available Not Available fluticasone furoate 200 mcg-vilante rol 25 mcg/dose inhalation powder INHALE 1 PUFF BY MOUTH EVERY DAY 02/25 completed Not Available Not Available Not Available Gemtesa 75 mg tablet Take 1 tablet every day by oral route. 09/14 completed Not Available Not Available Not Available aspirin 81 mg capsule Take 1 capsule every day by oral route. active Not Available Not Available No t Available Vitals Date Recorded Body height Body mass index (BMI) Body weight Provider Name and Address Organization Details Last Updated DateTime 03/03/2023 170.18 cm 28.2 kg/m2 71521.63 g Van Garnica MD [address] [place] [address], [address] 03/03/2023 16:01:55 Date Recorded Body height Body mass index (BMI) Body weight Provider Name and Address Organization Details Last Updated DateTime 09/15/2023 170.18 cm 28.2 kg/m2 90149.63 g Maritza Arroyo [facility] 09/15/2023 14:59:43 Date Recorded Body height Body mass index (BMI) Body weight Provider Name and Address Organization Details Last Updated DateTime 02/26/2024 170.18 cm 28.2 kg/m2 73272.63 g Maritza Sales [facility] 02/26/2024 10:22:57 Social History Question Answer Notes LastModified by Organizat ion Details LastModified Time Tobacco Smoking Status Never Smoker Van Garnica MD [address] [place] [address],[address], [address], [facility] 03/23/2022 15:58:00 What Is Your Level Of Alcohol Consumption? None Information not available 03/23/2022 What Is Your Level Of Caffeine Consumption? Moderate Information not available 03/23/2022 Are You Currently Employed? Yes Information not available 11/25/2022 Recreational Drug Use No Information not available 11/25/2022 What Was The Date Of Your Most Recent Tobacco Screening? 02/26/2024 [email or web address] Information not available 02/26/2024 What Is Your Relationship Status? Single Information not available 11/25/2022 Do You Use Any Illicit Or Recreational Drugs? No [email or web address] Information not available 09/15/2023 Has Tobacco Cessation Counseling Been Provided? No Information not available 11/25/2022 Do You Or Have You Ever Used Any Other Forms Of Tobacco Or Nicotine? No Information not available 11/25/2022 Sex: Unknown Functional Status None recorded. Mental Status None recorded. Family History Relationship Description Onset Age of this Age Resolved Age Notes LastModified by Organization Details LastModified Time Father Family history of cardiac disorder [email or web address] Not available 2021 15:57:50 Medical History Condition Response Sexually Transmitted Infection N Diabetes N Other N Bleeding Disorder N High Blood Pressure N Kidney Stones N High Cholesterol N GERD/Acid Reflux Y Heart Disease N Cancer N Depression N Lung Disease N Immunizations Vaccine Type Date Status Provider Name and Address Organization Details Recorded Time tetanus toxoid, unspecified formulation 04/04/2016 HETAL Kiran [facility] 02/23/2023 17:12:00 Influenza, split virus, trivalent, PF 04/28/2017 HETAL Kiran [facility] 02/23/2023 17:12:00 Influenza, split virus, quadrivalent, PF 01/30/2018 HETAL Kiran [facility] 02/23/2023 17:12:00 Past Encounters Encounter ID Performer Location Encounter Start Date Encounter Closed Date Diagnosis/Indication Diagnosis SNOMED-CT Code Diagnosis ICD10 Code [id number] Van Garnica MD [facility] [address] [place] [address] 11/17/2021 09:50:51 11/19/2021 13:47:17 Benign prostatic hyperplasia with outflow obstruction 375727690 N40.1 [id number] Van Garnica MD [facility] [address] [place] [address] 11/26/2021 13:53:58 11/29/2021 12:24:49 Increased frequency of urination 923223998 R35.0 Slowing of urinary stream 92193984 R39.12 Urgent rena jose de jesus to urinate 38620607 R39.15 [id number] Van Garnica MD [facility] [address] [place] [address] 03/23/2022 15:48:55 03/28/2022 11:38:28 Increased frequency of urination 059614108 R35.0 Slowing of urinary stream 91858959 R39.12 Urgent rena jose de jesus to urinate 23877448 R39.15 [id number] Van Garnica MD [facility] [address] [place], [place] [address] 06/22/2022 10:58:40 06/27/2022 11:51:03 Benign prostatic hyperplasia 079325027 N40.1 [id number] Van Garnica MD [facility] [address] [place], [place] [address] 08/01/2022 09:54:25 08/03/2022 15:28:36 Increased frequency of urination 374221982 R35.0 Slowing of urinary stream 97278665 R39.12 Urgent rena jose de jesus to urinate 68353953 R39.15 [id number] Van Garnica MD [facility] [address] [place], [place] [address] 11/25/2022 15:49:48 12/05/2022 08:59:56 Increased frequency of urination 244376260 R35.0 Slowing of urinary stream 82177035 R39.12 Urgent rena jose de jesus to urinate 13633928 R39.15 [id number] Van Garnica MD [facility] [address] [place], [place] [address] 11/24/2022 15:57:30 12/01/2022 12:02:38 Increased frequency of urination 833083669 R35.0 [id number] Van Garnica MD [facility] [address] [place] [address] 03/03/2023 15:47:36 03/08/2023 16:03:36 Increased frequency of urination 112195123 R35.0 Slowing of urinary stream 40118612 R39.12 Urgent rena jose de jesus to urinate 13717187 R39.15 [id number] Van Garnica MD [facility] [address] [place] [address] 09/15/2023 14:55:32 09/18/2023 09:50:36 Increased frequency of urination 490466738 R35.0 Slowing of urinary stream 85789268 R39.12 Urgent rena jose de jesus to urinate 20361014 R39.15 [id number] Van Garnica MD [facility] [address] [place] [address] 02/26/2024 10:10:25 02/27/2024 09:22:31 Increased frequency of urination 227264397 R35.0 Slowing of urinary stream 73426039 R39.12 Urgent rena jose de jesus to urinate 90799319 R39.15 [id number] Van Garnica MD [facility] [address] [place] [address] 03/08/2024 12:12:13 03/11/2024 16:25:19 Urgent desire to urinate 07802325 R39.15 [id number] Mary Pat [facility] [address] [place] [address] 03/15/2024 11:46:01 03/19/2024 16:55:19 Increased frequency of urination 905487265 R35.0 Slowing of urinary stream 18217164 R39.12 Urgent rena jose de jesus to urinate 67598178 R39.15 Health Concerns Section Related Observation LastModified by Organization Detai ls LastModified Time None Recorded Concern Status LastModified by Organization Details LastModified Time None Recorded Advance Directives Directive None Recorded Payers Encounter Date Sequence Insurance Name Policy Number Policy Jensen Covered Member ID Jensen Member ID Guarantor Name 03/03/2023 1 [employer] (MEDICAID REPLACEMENT - HMO) [employer] Jai Laird [id number] Jai Laird 09/15/2023 1 [facility] [id number] Jai Laird [id number] Jai Laird 02/26/2024 1 [facility] [id number] Jai Laird [id number] Jai Laird 03/08/2024 1 [facility] [id number] Jai Laird [id number] Jai Laird 03/15/2024 1 [facility] [id number] Jai Laird [id number] Jai Laird Notes Date Note Type Note Provider Name and Address Organization Details Recorded Time 03/03/2023 text/html 62-year-old lew mcneal who follows with me in our [place] clinic for urinary frequency, urinary urgency, and weakened urinary stream. He has tried and failed combination therapy of alpha-do and anticholinergic. He did complete a Urocuff for my review which notes high-pressure high flow, he is here today for cystoscopy and TRUS volume study for further consideration of outlet procedure. 03/23/2022:Here for follow up urinary frequency, urinary urgency, and weakened urinary stream. Continues with irritative symptoms despite addition of mybetriq to anticholinergic. 08/01/2022:Here for follow up urinary frequency, urinary urgency, and weakened urinary stream. He is now s/p Greenlight PVP and reports his flow is significantly improved but he is continuing to experience significant overactivity symptoms such as urgency and weakened urinary stream. These seem to be improving now. 11/25/2022:Here for follow up urinary frequency, urinary urgency, and weakened urinary stream.S/p GL PVP but dealing with some irritative symptoms. He completed a urocuff which shows a good flow pattern but continued increased detrusor pressure. Patient reports that since decreasing his caffeine intake he has had more good days but still a lot of variability to his voiding patterns. 03/03/2023: Here for follow up urinary frequency, urinary urgency, and weakened urinary stream. S/p GL PVP. He reports that the combination of trospium and Gemtesa has significantly improved his voiding. He is getting more time in between urinations with less overall urgency. Van Garnica MD [address] [place] [address],[address], [place], [address], [facility] 03/03/2023 17:05:51 09/15/2023 text/html 62-year-old lew mcneal who follows with me in our [place] clinic for urinary frequency, urinary urgency, and weakened urinary stream. He has tried and failed combination therapy of alpha-do and anticholinergic. He did complete a Urocuff for my review which notes high-pressure high flow, he is here today for cystoscopy and TRUS volume study for further consideration of outlet procedure. 03/23/2022:Here for follow up urinary frequency, urinary urgency, and weakened urinary stream. Continues with irritative symptoms despite addition of mybetriq to anticholinergic. 08/01/2022:Here for follow up urinary frequency, urinary urgency, and weakened urinary stream. He is now s/p Greenlight PVP and reports his flow is significantly improved but he is continuing to experience significant overactivity symptoms such as urgency and weakened urinary stream. These seem to be improving now. 11/25/2022:Here for follow up urinary frequency, urinary urgency, and weakened urinary stream.S/p GL PVP but dealing with some irritative symptoms. He completed a urocuff which shows a good flow pattern but continued increased detrusor pressure. Patient reports that since decreasing his caffeine intake he has had more good days but still a lot of variability to his voiding patterns. 03/03/2023: Here for follow up urinary frequency, urinary urgency, and weakened urinary stream. S/p GL PVP. He reports that the combination of trospium and Gemtesa has significantly improved his voiding. He is getting more time in between urinations with less overall urgency. 09/15/2023:Here for follow up urinary frequency, urinary urgency, and weakened urinary stream. S/p GL PVP. Doing ok on decreasing caffeine but some days better than others. Stopped all medication. Van Garnica MD [address] [facility],[address], [place], [address], [facility] 09/15/2023 16:04:13 02/26/2024 text/html 62-year-old lew mcneal who follows with me in our [place] clinic for urinary frequency, urinary urgency, and weakened urinary stream. He has tried and failed combination therapy of alpha-do and anticholinergic. He did complete a Urocuff for my review which notes high-pressure high flow, he is here today for cystoscopy and TRUS volume study for further consideration of outlet procedure. 03/23/2022:Here for follow up urinary frequency, urinary urgency, and weakened urinary stream. Continues with irritative symptoms despite addition of mybetriq to anticholinergic. 08/01/2022:Here for follow up urinary frequency, urinary urgency, and weakened urinary stream. He is now s/p Greenlight PVP and reports his flow is significantly improved but he is continuing to experience significant overactivity symptoms such as urgency and weakened urinary stream. These seem to be improving now. 11/25/2022:Here for follow up urinary frequency, urinary urgency, and weakened urinary stream.S/p GL PVP but dealing with some irritative symptoms. He completed a urocuff which shows a good flow pattern but continued increased detrusor pressure. Patient reports that since decreasing his caffeine intake he has had more good days but still a lot of variability to his voiding patterns. 03/03/2023: Here for follow up urinary frequency, urinary urgency, and weakened urinary stream. S/p GL PVP. He reports that the combination of trospium and Gemtesa has significantly improved his voiding. He is getting more time in between urinations with less overall urgency. 09/15/2023:Here for follow up urinary frequency, urinary urgency, and weakened urinary stream. S/p GL PVP. Doing ok on decreasing caffeine but some days better than others. Stopped all medication. 02/26/24:Here for follow up urinary frequency, urinary urgency, and weakened urinary stream. S/p GL PVP. Today reports no significant improvement and developed some adverse effects to the anticholinergic (vision blurry). Van Garnica MD [address] [place] [address],[address], [place], [address], [facility] 02/26/2024 14:13:55 03/08/2024 text/html Pt presents to [facility] for UA/UC prior to Botox procedure next weekNurse visit completed by Tracy Juan RN. Van Garnica MD [address] [place] [address],[address], [place], [address], [facility] 03/08/2024 12:55:51 03/15/2024 text/html 62-year-old lew mcneal who follows with me in our [place] clinic for urinary frequency, urinary urgency, and weakened urinary stream. He has tried and failed combination therapy of alpha-do and anticholinergic. He did complete a Urocuff for my review which notes high-pressure high flow, he is here today for cystoscopy and TRUS volume study for further consideration of outlet procedure. 03/23/2022:Here for follow up urinary frequency, urinary urgency, and weakened urinary stream. Continues with irritative symptoms despite addition of mybetriq to anticholinergic. 08/01/2022:Here for follow up urinary frequency, urinary urgency, and weakened urinary stream. He is now s/p Greenlight PVP and reports his flow is significantly improved but he is continuing to experience significant overactivity symptoms such as urgency and weakened urinary stream. These seem to be improving now. 11/25/2022:Here for follow up urinary frequency, urinary urgency, and weakened urinary stream.S/p GL PVP but dealing with some irritative symptoms. He completed a urocuff which shows a good flow pattern but continued increased detrusor pressure. Patient reports that since decreasing his caffeine intake he has had more good days but still a lot of variability to his voiding patterns. 03/03/2023: Here for follow up urinary frequency, urinary urgency, and weakened urinary stream. S/p GL PVP. He reports that the combination of trospium and Gemtesa has significantly improved his voiding. He is getting more time in between urinations with less overall urgency. 09/15/2023:Here for follow up urinary frequency, urinary urgency, and weakened urinary stream. S/p GL PVP. Doing ok on decreasing caffeine but some days better than others. Stopped all medication. 02/26/24:Here for follow up urinary frequency, urinary urgency, and weakened urinary stream. S/p GL PVP. Today reports no significant improvement and developed some adverse effects to the anticholinergic (vision blurry). 03/15/2024:Here for follow up urinary frequency, urinary urgency, and weakened urinary stream. S/p GL PVP. Plan for today is botox 100 units HETAL Hernández - [facility] 03/15/2024 14:06:42
--- OUTSIDE RECORDS SUMMARY | 2024-03-22 15:30 | XMS_ITS | Clinical Summary ---
Author Organization Home Address [address] [place] [address] Care Team Providers Care Veterinary Toxicologist Name Role Phone MaGabe anderson Primary Care Provider [phone] Allergies No known active allergies Medications albuterol (PROAIR HFA/PROVENTIL HFA/VENTOLIN HFA) 108 (90 Base) MCG/ACT inhaler Inhale 2 puffs into the lungs every 6 hours as needed for shortness of breath, wheezing or cough Active aspirin (ASA) 81 MG chewable tablet Take 81 mg by mouth daily Active fluticasone-harvinder anterol (BREO ELLIPTA) 200-25 MCG/ACT inhaler Inhale 1 puff into the lungs daily Active loratadine (CLARITIN) 10 MG tablet Take 10 mg by mouth daily Active omeprazole (PRILOSEC OTC) 20 MG EC tablet Take 20 mg by mouth daily Active tamsulosin (FLOMAX) 0.4 MG capsule Take 0.4 mg by mouth daily Active trospium (SANCTURA XR) 60 MG CP24 24 hr capsule Take 60 mg by mouth every morning Active Social History Tobacco Use Types Packs/Day Years Used Date Smoking Tobacco: Never Smokeless Tobacco: Never Tobacco Cessation:Counseling Given: Not Answered Alcohol Use Standard Drinks/Week Comments Not Currently 0 (1 standard drink = 0.6 oz pur e alcohol) Adolescent Education Answer Date Record ed Getting School Help Needed Not on file 01/21 Sex and Gender Information Value Date Recorded Sex Assigned at Not on file Legal Sex Male 10:27 AM CDT Gender Identity Not on file Sexual Orientation Not on file Last Filed Vital Signs Vital Sign Reading Time Taken Comments Blood Pressure 126/82 06/20/2022 11:58 AM WEB MACHINE TENDER Pulse 76 06/20/2022 11:58 AM WEB MACHINE TENDER Temperature 36.7 C (98 F) 06/20/2022 11:58 AM WEB MACHINE TENDER Respiratory Rate 16 06/20/2022 11:58 AM WEB MACHINE TENDER Oxygen Saturation 93% 06/20/2022 11:58 AM WEB MACHINE TENDER Inhaled Oxygen Concentration - - Weight 82.6 kg (182 lb) 06/20/2022 7:08 AM WEB MACHINE TENDER Height 185.4 cm (6' 1) 06/20/2022 7:08 AM WEB MACHINE TENDER Body Mass Index 24.01 06/20/2022 7:08 AM WEB MACHINE TENDER Plan of Treatment Health Maintenance Due Date Last Done Comments ADVANCE CARE PLANNING 1959 ANNUAL REVIEW OF HM ORDERS 1959 CT COLONOGRAPHY 1959 FIT 1959 FLEX SIG 1959 GLUCOSE 1959 YEARLY PREVENTIVE VISIT 1959 sDNA (Cologuard) 1959 COLONOSCOPY 11/11/1969 COLORECTAL CANCER SCREENING 11/11/1969 HIV SCREENING 11/11/1974 HEPATITIS C SCREENING 11/11/1977 DTAP/TDAP/TD IMMUNIZATION (1 - Tdap) 11/11/1984 LIPID 1999 ZOSTER IMMUNIZATION (1 of 2) 11/11/2009 PHQ-2 (once per calendar year) 2023 COVID-19 Vaccine (1 - 2023-2 5 season) 2023 INFLUENZA VACCINE (#1) 2023 8, 04/28/2017 RSV VACCINE (1 - 1-dose 75+ series) 11/11/2034 HPV IMMUNIZATION Aged Out No longer e ligible based on patient's age to complete this topic MENINGITIS IMMUNIZATION Aged Out No l onger eligible based on patient's age to complete this topic Pneumococcal Vaccine: Pediatrics (0 to 5 Years) and At-Risk Patients (6 to 64 Years) Aged Out No longer eligible b ased on patient's age to complete this topic RSV MONOCLONAL ANTIBODY Aged Out No l onger eligible based on patient's age to complete this topic Care Teams Veterinary Toxicologist Relationship Specialty Start Date End Date Gabe Ma [address] [place] [address] PCP - General Family Medicine 06/20/22
--- OUTSIDE RECORDS SUMMARY | 2024-03-22 15:30 | XMS_ITS | Continuity of Care Document ---
Author Organization [facility] Address [address] [place] [address] Care Team Providers Care Riprap Placer Name Role Phone ARLEN SILVESTRE Primary Care Provider Assessment No assessment recorded. Plan of Treatment Reminders Order Date Submit Date Provider Last Modified By Organization Details Last Modified Time Details Appointments [facility] 10 2024 02:40P Geraldo Garnica MD Not available Not available Not available Lab urinalys is, dipstick 2023 024 [facility], [address], [place], [address], 03/08/2024 12:41:14 culture, urine [address] [facility], [address], [place], [address], 03/10/2024 09:37:24 Referral None recorded . Procedures None recorded . Surgeries None recorded . Imaging None recorded . Medication Orders None recorded . Patient TargetsNo targets recorded. Patient InstructionsNo instructions recorded. Reason for Referral None Reported. Results Created Date Observation Date Name Description Value Unit Range Abnormal Flag Note LastModifiedBy Organization Detail LastModifiedTime 03/08/2003/08/2024 urina lysis , dipst ick BLOOD Negati ve Not Available [facility] [address], [place], [address], 03/08/2024 12:39:43 03/08/20 24 03/08/2024 urina lysis , dipst ick NITRITES Negati ve Not Available [facility] [address], [place], [address], 03/08/2024 12:39:43 03/08/20 24 03/08/2024 urina lysis , dipst ick LEUKOCYTES Negati ve Not Available [facility] [address], [place], [address], 03/08/2024 12:39:43 Result Notes None recorded. Problems Name Problem SNOMED Code Status Onset Date Resolution Date Notes Provider Name and Address Organization Details Recorded Time Benign prostatic hyperplasia 449078633 Active 2022 Radha briceño [facility] 14:05:21 Problem Notes None recorded. Procedures Surgical History Date Name Laterality Status Provider Name and Address Organization Details Recorded Time 03/15/20 24 Cystoscopy with Botox Injections completed Maritza Sales [facility] 03/15/2024 13:27:39 03/08/20 24 Urine Culture completed Tracy Cruz [facility] 03/08/2024 12:39:08 03/08/20 24 Urinalysis completed Tracy Cruz [facility] 03/08/2024 12:39:04 02/26/20 24 COMPLEX VISIT completed Van Garnica MD [address] [place] [address],[address] [place] [address], [address], [facility] 02/25/2024 23:10:20 02/26/20 24 Bladder Scan completed Maritza Sales [facility] 02/26/2024 10:22:18 09/15/19 24 COMPLEX VISIT completed Van Garnica MD [address] [place] [address],[address], [place], [address], [facility] 09/15/2023 16:03:47 09/15/19 24 Bladder Scan completed Floresita Hampton [facility] 09/15/2023 15:13:01 03/03/20 23 Bladder Scan completed Van Garnica MD [address] [place] [address],[address], [place], [address], [facility] 03/03/2023 16:02:33 11/25/19 23 UroCuff completed Quyen Humphrey [facility] 11/24/2022 16:32:40 11/25/19 23 Bladder Scan completed Quyen Humphrey [facility] 11/24/2022 16:31:14 08/02/19 Bladder Scan completed Maritza Arroyo [facility] 08/01/2022 10:06:51 06/22/19 23 Fill and Pull/Voiding Trial/TOV completed Radha Brian [facility] 06/22/2022 14:06:25 03/23/20 Bladder Scan completed Van Garnica MD [address] [place] [address],[address], [place], [address], [facility] 03/23/2022 15:58:09 11/27/19 Cystoscopy- male completed Van Garnica MD [address] [place] [address],[address], [place], [address], [facility] 11/26/2021 14:21:20 11/27/19 TRUS- Volume size only completed Van Garnica MD [address] [place] [address],[address], [place], [address], [facility] 11/26/2021 16:35:07 11/18/19 22 UroCuff completed Gavin Schmidt [facility] 11/17/2021 11:28:52 11/18/19 22 Bladder Scan completed Gavin Schmidt [facility] 11/17/2021 11:23:35 procedure on knee completed Van Garnica MD [address] [place] [address],[address], [place], [address], [facility] 03/23/2022 15:58:19 procedure on ankle completed Van Garnica MD [address] [place] [address],[address], [place], [address], [facility] 03/23/2022 15:58:25 tonsillectomy completed Van harris MD [address] [place] [address],[address], [place], [address], [facility] 03/23/2022 15:58:31 procedure on elbow completed Maritza Sales [facility] 02/26/2024 10:24:51 Shoulder joint surgery completed Van Garnica MD [address] [facility],[address], [place], [address], [facility] 03/23/2022 15:58:51 Imaging Results [...] Available Not Available No t Available Vitals None Recorded Social History Question Answer Notes LastModified by Organizat ion Details LastModified Time Tobacco Smoking Status Never Smoker Van Garnica MD [address] [place] [address],[address], [place], [address], [facility] 03/23/2022 15:58:00 What Is Your Level Of Alcohol Consumption? None Information not available 03/23/2022 What Is Your Level Of Caffeine Consumption? Moderate Information not available 03/23/2022 Are You Currently Employed? Yes Information not available 11/25/2022 Recreational Drug Use No Information not available 11/25/2022 What Was The Date Of Your Most Recent Tobacco Screening? 02/26/2024 [email or web address] Information not available 02/26/2024 What Is Your [...] Reflux Y Heart Disease N Cancer N Lung Disease N Depression N Immunizations Vaccine Type Date Status Provider Name and Address Organization Details Recorded Time tetanus toxoid, unspecified formulation 04/04/2016 completed Vianca briceño [facility] 02/23/2023 17:12:00 Influenza, split virus, trivalent, PF 04/28/2017 completed HETAL Prieto [facility] 02/23/2023 17:12:00 Influenza, split virus, quadrivalent, PF 01/30/2018 aminta briceño [facility] 02/23/2023 17:12:00 Past Encounters Encounter ID Performer Location Encounter Start Date Encounter Closed Date Diagnosis/Indication Diagnosis SNOMED-CT Code Diagnosis ICD10 Code [id number] MD FAUSTINO Bullock_Radha [address] [place] [id number] 02/26/2024 10:10:25 02/27/2024 09:22:31 Increased frequency of urination 206427404 R35.0 Slowing of urinary stream 39539496 R39.12 Urgent rena jose de jesus to urinate 02193400 R39.15 [id number] MD FAUSTINO Bullock_Radha [address] [place] [id number] 03/08/2024 12:12:13 03/11/2024 16:25:19 Urgent desire to urinate 54790703 R39.15 Health Concerns Section Related Observation LastModified by Organization Detai ls LastModified Time None Recorded Concern Status LastModified by Organization Details LastModified Time None Recorded Payers Encounter Date Sequence Insurance Name Policy Number Policy Jensen Covered Member ID Jensen Member ID Guarantor Name 03/08/2024 1 [facility] [id number] Jai Laird [id number] Jai Laird Notes Date Note Type Note Provider Name and Address Organization Details Recorded Time 03/08/2024 text/html Pt presents to clinic for UA/UC prior to Botox procedure next weekNurse visit completed by Tracy Juan RN. Van Garnica MD [address] [place] [address],[address], [place], [address], [facility] 03/08/2024 12:55:51
--- OUTSIDE RECORDS SUMMARY | 2024-03-22 15:30 | XMS_ITS | Clinical Summary ---
Author Organization [facility] Address [place], [place] [address] Care Team Providers Care Financial Risk Manager Name Role Phone Gabe Ma MD Primary Care Provider Allergies No known active allergies Medications Medication Sig Dispensed Refills Start Date End Date Status loratadine (CLARITIN) 10 mg tablet Take 1 tablet by mouth once daily. 0 01/12/2016 Active omeprazole (PRILOSEC-OTC) 20 mg tabletIndications :Chronic GERD Take 1 tablet by mouth once daily. 0 08/26/2016 Active aspirin chewable 81 mg chewable tablet Take 1 tablet by mouth once daily with a meal. 0 07/05/2018 Active multivit-minerals /folic acid (CENTRUM ADULT 50 PLUS ORAL) Take by mouth. Active durable medical equipment (DME)Indications: Numbness and tingling in left hand QUICKFIT WRIST II, UNIV, LT 04/14/2023 Active albuterol HFA (PRO-AIR; VENTOLIN; PROVENTIL) 90 mcg/actuation inhalerIndication s:COVID-19 virus infection,Exacerb ation of asthma, unspecified asthma severity, unspecified whether persistent Inhale 1-2 Puffs by mouth every 4 hours if needed for Shortness Of Breath. 1 Each 06/06/2023 Active tolterodine (DETROL) 1 mg tablet Take 2 mg by mouth two times daily. Active HYDROcodone-aceta minophen (5-325 mg/tablet)Indicat ions:Aftercare following surgery Take 1 Tablet by mouth every 4 hours if needed for Pain (Severe pain). Max acetaminophen dose: 4000 mg in 24 hrs. 12 Tablet 01/09/2024 Active predniSONE (DELTASONE) 20 mg tabletIndications :Temporal headache Take 2 Tablets (40 mg) by mouth once daily for 21 days. 42 Tablet 03/18/2024 4 Active fluticasone furoate-vilantero L (BREO ELLIPTA) 200mcg/25mcg inhalerIndication s:Exacerbation of asthma, unspecified asthma severity, unspecified whether persistent Inhale 1 Puff by mouth once daily. 180 Each 2 05/20/2023 4 Discontinue d(*Patient states no longer taking) Hospital, Clinic, or Other Facility Administered Medication Ordered Dose Route Frequency Start Date End Date Status triamcinolone acetonide (KENALOG) injection 20 mgIndications:Primary osteoarthritis of left wrist 20 mg IArtic ONE TIME 03/15/2024 03/15/2024 Ended Active Problems Problem Noted Date Diagnosed Date Cubital tunnel syndrome, left 12/11/2023 Primary osteoarthritis of left wrist- STT 2022 Numbness and tingling in left hand 04/14/2023 S/P green light laser TURP 06/20/2022. 06/24/2022 Benign essential HTN 01/01/2021 Chronic GERD 01/01/2021 BPH without urinary obstruction 01/01/2021 Dysphagia, unspecified(787.20) 01/27/2016 Overview (01/27/2016): EGD 12/2015 normal, small hiatal hernia, try omeprazole Allergic rhinitis due to pollen 08/25/2015 Osteoarthritis of hand 08/25/2015 Varicose vein of leg 08/25/2015 Right varicocele 08/25/2015 Resolved Problems Problem Noted Date Diagnosed Date Resolved Date Routine adult health maintenance 12/26/2018 11/07/2019 Overview (12/26/2018): Colonoscopy 11/2018 diverticulosis, repeat in 10 years Mild intermittent asthma without complication 08/25/19 16 06/28/2021 Encounters Date Type Department Care Team Description 03/20/2024 10:45 AM VETERINARY LABORATORY DIAGNOSTICIAN Office Visit [facility] [address] [place] [address] Michelle Glasgow MD Consult (Right Temporal artery biopsy referred by Dr. Blount) 03/20/2024 Travel 03/19/2024 Telephone [facility] [address] [place] [address] Gonzalez Blount MD new order needed 03/18/2024 Telephone [facility] [address] [place] [address] Gonzalez Blount MD 03/15/2024 3:05 PM VETERINARY LABORATORY DIAGNOSTICIAN Office Visit [facility] [address] [place] [address] Gonzalez Blount MD Headache (waking up at night with the pain ) 03/15/2024 9:00 AM VETERINARY LABORATORY DIAGNOSTICIAN Office Visit [facility] [address] [facility] [address] [place] [address] Joe Real MD Recheck (Left wrist pain) 03/15/2024 Orders Only [facility] Scanner 1 scan: (1-Ord) HETAL UROLOGY, CYSTOSCOPY W BOTOX INJ, 03/15/2024 03/15/2024 Travel 03/07/2024 2:30 PM VETERINARY LABORATORY DIAGNOSTICIAN Ancillary Procedure [facility] [address] [place] [address] 03/07/2024 1:15 PM VETERINARY LABORATORY DIAGNOSTICIAN Office Visit [facility] [address] [place] [address] Patsy Valencia PA Headache 03/07/2024 Travel 03/07/2024 Nurse Triage [address] [address] Patsy Valencia PA Headache 03/07/2024 Telephone [facility] [address] [place] [address] Patsy Valencia PA Headache 01/19/2024 11:45 AM CDT Office Visit [facility] [address] [place] [address] Joe Real MD Surgical Followup (s/p left cubital tunnel release DOS: 01/09/[address] Real) 01/19/2024 Travel 01/09/2024 6:06 AM CDT - 01/09/2024 11:59 PM CDT Hospital Encounter Joe Real MD 01/09/2024 Orders Only [facility] [address] [place] [address] Joe Real MD <No scans attached> 01/09/2024 Orders Only [facility] [address] [place] [address] Bobbi Beasley PA <No scans attached> 01/09/2024 Surgery [facility] [address] [place] [address] Joe Real MD LEFT ELBOW OPEN CUBITAL TUNNEL DECOMPRESSION WITH POSSIBLE TRANSPOSITION. 01/05/2024 3:50 PM CDT Office Visit [facility] [address] [place] [address] Shadia Johnson NP Preoperative Exam (DOS 01/09/24) 01/05/2024 Travel 01/03/2024 Telephone [facility] [address] [place] [address] Joe Real MD 01/03/2024 Telephone [facility] [address] [place] [address] Joe Real MD Prior Authorization (FYI: WESTLEY PA DENIED ) 01/01/2024 Orders Only [facility] [address] [place] [address] Joe Real MD <No scans attached> 12/29/2023 11:30 AM CDT Office Visit [facility] [address] [place] [address] Joe Real MD Wrist Pain/problem (Left wrist pain) 12/29/2023 Travel from Last 3 Months Immunizations Name Administration [...] Never Smokeless Tobacco: Never Tobacco Cessation:Counseling Given: Yes Alcohol Use Standard Drinks/Week Comments Not Currently 14 (1 standard drink = 0.6 oz pu re alcohol) quit 10/2018 PHQ-2 Answer Date Recorded PHQ-2 TOTAL SCORE 2 11/07/2019 Social Connections Answer Date Recorded Do you often feel lonely or isolated from those around you? 0 01/05/2024 Alcohol Use Answer Date Recorded How often do you have a drink containing alcohol ? 0 09/01/2021 Average Number of Drinks Not on file 022 How often do you have five or more drinks on one occasion? 0 09/01/2021 Financial Resource Strain Answer Date R ecorded Difficulty of Paying Living Expenses 3 01/05/2024 Difficulty of Paying Living Expenses Not on file 01/05/2024 Food Insecurity Answer Date Recorded Do you worry your food will run out before you are able to buy more? 1 01/05/2024 Transportation Needs Answer Date Record ed Does lack of transportation keep you from medica l appointments? 1 01/05/2024 Does lack of transportation keep you from work, meetings or getting things that you need? 1 01/05/2024 Housing Stability Answer Date Recorded What is your housing situation today? 1 01/05/2024 Sex and Gender Information Value Date Recorded Sex Assigned at Not on file Gender Identity Not on file Sexual Orientation Not on file Travel History Travel Start Travel End [place] 03/14/2024 03/14/2024 Obstetrics History Last Filed Vital Signs Vital Sign Reading Time Taken Comments Blood Pressure 137/81 03/20/2024 10:46 AM VETERINARY LABORATORY DIAGNOSTICIAN Pulse 67 03/20/2024 10:46 AM VETERINARY LABORATORY DIAGNOSTICIAN Temperature 36.8 C (98.2 F) 03/07/2024 1:11 PM VETERINARY LABORATORY DIAGNOSTICIAN Respiratory Rate 18 09/01/2021 9:10 AM CDT Oxygen Saturation 97% 03/20/2024 10:46 AM VETERINARY LABORATORY DIAGNOSTICIAN Inhaled Oxygen Concentration - - Weight 85.3 kg (188 lb 1.6 oz) 03/20/2024 10:46 AM VETERINARY LABORATORY DIAGNOSTICIAN Height 170.2 cm (5' 7) 01/05/2024 3:52 PM CDT Body Mass Index 29.46 01/05/2024 3:52 PM CDT Plan of Treatment Upcoming Encounters Date Type Department Care Team (Late st Contact Info) Description 03/25/2024 8:00 AM VETERINARY LABORATORY DIAGNOSTICIAN Office Visit [facility] [address] [place] [address] Michelle Glasgow MD [address] [place] [address] 06/20/2024 3:15 PM VETERINARY LABORATORY DIAGNOSTICIAN Office Visit [facility] [address] [facility] [address] [place] [phone] Joe Real MD [address] [facility] [address] [place] [address] Health Maintenance Due Date Last Done Comments Tdap 11/11/1970 Zoster (shingles) series for age 50+ (1 of 2) 11/11/2009 Depression screening for age 12+ 11/06/2020 11/07/2019, 01/30/2018, 08/26/2016, Additional history exists COVID-19 vaccine series ( season) 2023 Influenza for age 50-64 12/31/2023 01/30/2018 Lipids for age 45-75 11/06/2024 11/07/2019, 07/20/2018, 08/25/2015 BMI (ht and wt on same day) for age 18+ 01/04/2025 01/05/2024, 06/13/2022, 03/23/2022, Additional history exists Tetanus booster 04/05/2026 04/05/2016 (Comp leted outside of [facility]) Colonoscopy through age 75 12/26/202812/26, 12/26/2018, 12/26/2018, Additional history exists HIV for age 15-65 Completed 08/06/2018 Hepatitis C screening for age 18-79 Completed 08/06/2018, 08/25/2015 Pneumococcal series for age 6-64 Aged Out No longer eligible based on patient's age to complete this topic Procedures Procedure Name Priority Date/Time Associated Diagnosis Comments C-REACTIVE PROTEIN Routine 03/15/2024 3: 58 PM VETERINARY LABORATORY DIAGNOSTICIAN Acute nonintractable headache, unspecified headache type Temporal headache SEDIMENTATION RATE Routine 03/15/2024 3: 58 PM VETERINARY LABORATORY DIAGNOSTICIAN Acute nonintractable headache, unspecified headache type Temporal headache CBC WITH AUTO DIFFERENTIAL Routine 03/15/2024 3:58 PM VETERINARY LABORATORY DIAGNOSTICIAN Acute nonintractable headache, unspecified headache type Temporal headache BASIC METABOLIC PANEL Routine 03/15/2024 3:58 PM VETERINARY LABORATORY DIAGNOSTICIAN Acute nonintractable headache, unspecified headache type Temporal headache SCAN-OPERATIVE/PROCED URE REPORT 03/15/2024 12:00 AM VETERINARY LABORATORY DIAGNOSTICIAN C-REACTIVE PROTEIN Routine 03/07/2024 1: 52 PM VETERINARY LABORATORY DIAGNOSTICIAN Headache syndrome SEDIMENTATION RATE Routine 03/07/2024 1: 52 PM VETERINARY LABORATORY DIAGNOSTICIAN Headache syndrome CT HEAD BRAIN WO STAT 03/07/2024 1:50 PM VETERINARY LABORATORY DIAGNOSTICIAN Headache syndrome LIPID PANEL W REFLEX MEASURED LDL Routine 11/07/2019 9:43 AM CDT Lipid screening COLONOSCOPY SCREENING Routine 12/26/2018 8:47 AM CDT Screening for colon cancer ANTI HIV 1/2 Routine 08/06/2018 1:59 PM CDT Screen for STD (sexually transmitted disease) ANTI HCV Routine 08/06/2018 1:59 PM CDT Screen for STD (sexually transmitted disease) SURGICAL PROCEDURE (TYPE PROCEDURE DESCRIPTION BELOW) Cubital tunnel syndrome, left from Last 3 Months or Most Recently Relevant to Health Maintenance Results * SEDIMENTATION RATE (03/15/2024 3:58 PM VETERINARY LABORATORY DIAGNOSTICIAN) Only the most recent of2 resultswithin the time period is included. SED RATE BY MODIFIED WESTERGREN 6 < OR = 20 mm/h [employer] Blood BLOOD SPECIMEN / Unknown 03/15/2024 3:58 PM VETERINARY LABORATORY DIAGNOSTICIAN 03/15/2024 3:58 PM VETERINARY LABORATORY DIAGNOSTICIAN Gonzalez Blount MD HEMATOL OGY [employer] [facility] [address] [place] [address], [place] [phone] [employer] [facility] [address] [place] [address] * (ABNORMAL) C-REACTIVE PROTEIN (03/15/2024 3:58 PM VETERINARY LABORATORY DIAGNOSTICIAN) Only the most recent of2 resultswithin the time period is included. Pathologist [facility] C-REACTIVE PROTEIN 21.0(H) <8.0 mg/L [facility] Blood BLOOD SPECIMEN / Unknown 03/15/2024 3:58 PM VETERINARY LABORATORY DIAGNOSTICIAN 03/15/2024 3:58 PM VETERINARY LABORATORY DIAGNOSTICIAN Gonzalez Blount MD LASTEX OPERATOR RY Performing Organization Address [facility]/ZIP Co de Phone Number [employer] [facility] [address] [place] [address], [place] [phone] [employer] [address] [place] [address] * CBC AND DIFFERENTIAL (03/15/2024 3:58 PM VETERINARY LABORATORY DIAGNOSTICIAN) Pathologist [facility] WHITE BLOOD CELL COUNT 7.4 3.8 - 10.8 Thousand/u L [employer] [facility] RED BLOOD CELL COUNT 4.49 4.20 - 5.80 Million/uL [employer] [facility] HEMOGLOBIN 13.9 13.2 - 17.1 g/dL [employer] HEMATOCRIT 42.2 38.5 - 50.0 % [employer] MCV 94.0 80.0 - 100.0 fL [facility] MCH 31.0 27.0 - 33.0 pg [facility] MCHC 32.9 32.0 - 36.0 g/dL [facility] Comment: For adults, a slight decrease in the calculated MCHC value (in the range of 30 to 32 g/dL) is most likely not clinically significant; however, it should be interpreted with caution in correlation with other red cell parameters and the patient's clinical condition. RDW 12.1 11.0 - 15.0 % [facility] PLATELET COUNT 384 140 - 400 Thousand/u L [facility] MPV 9.4 7.5 - 12.5 fL [facility] ABSOLUTE NEUTROPHILS 5,794 1,500 - 7,800 cells/uL [facility] ABSOLUTE LYMPHOCYTES 1,088 850 - 3,900 cells/uL [facility] ABSOLUTE MONOCYTES 377 200 - 950 cells/uL [facility] ABSOLUTE EOSINOPHILS 89 15 - 500 cells/uL [facility] ABSOLUTE BASOPHILS 52 0 - 200 cells/uL [facility] NEUTROPHILS 78.3 % [facility] LYMPHOCYTES 14.7 % [facility] MONOCYTES 5.1 % [facility] EOSINOPHILS 1.2 % [facility] BASOPHILS 0.7 % [facility] Blood BLOOD SPECIMEN / Unknown 03/15/2024 3:58 PM VETERINARY LABORATORY DIAGNOSTICIAN 03/15/2024 3:58 PM VETERINARY LABORATORY DIAGNOSTICIAN Gonzalez Blount MD HEMATOL OGY [employer] [facility] [address] [place] [address], [facility] [address] [facility] [place] [address] * (ABNORMAL) BASIC METABOLIC PANEL (03/15/2024 3:58 PM VETERINARY LABORATORY DIAGNOSTICIAN) [facility] GLUCOSE 115(H) 65 - 99 mg/dL [facility] Comment: Fasting reference interval For someone without known diabetes, a glucose value between 100 and 125 mg/dL is consistent with prediabetes and should be confirmed with a follow-up test. UREA NITROGEN (BUN) 17 7 - 25 mg/dL [facility] CREATININE 0.89 0.70 - 1.35 mg/dL [facility] EGFR 96 > OR = 60 mL/min/1. 73m2 [facility] BUN/CREATININE RATIO SEE NOTE: 6 - 22 (calc) [facility] Comment: Not Reported: BUN and Creatinine are within reference range. SODIUM 140 135 - 146 mmol/L [facility] POTASSIUM 4.8 3.5 - 5.3 mmol/L [facility] CHLORIDE 106 98 - 110 mmol/L [facility] CARBON DIOXIDE 23 20 - 32 mmol/L [facility] ELECTROLYTE BALANCE 11 7 - 17 mmol/L (calc) [facility] CALCIUM 9.6 8.6 - 10.3 mg/dL [employer] [facility] Blood BLOOD SPECIMEN / Unknown 03/15/2024 3:58 PM VETERINARY LABORATORY DIAGNOSTICIAN 03/15/2024 3:58 PM VETERINARY LABORATORY DIAGNOSTICIAN Gonzalez Blount MD LASTEX OPERATOR RY [employer] [facility] [address] [place] [address], [facility] [address] [place] [address] * SCAN-OPERATIVE/PROCEDURE REPORT (03/15/2024 12:00 AM VETERINARY LABORATORY DIAGNOSTICIAN) Scanner OTHER * CT HEAD BRAIN WO (03/07/2024 1:50 PM VETERINARY LABORATORY DIAGNOSTICIAN) Anatomical Region Laterality Modality HEAD, BRAIN Computed Tomogra phy 03/07/2024 2:02 PM VETERINARY LABORATORY DIAGNOSTICIAN Narrative 03/07/2024 2:02 PM VETERINARY LABORATORY DIAGNOSTICIAN For Patients: As a result of the 21st Century Cures Act, medical imaging exams and procedure reports are released immediately into your electronic medical record. You may view this report before your referring provider. If you have questions, please contact your health care provider. Indication: Headache syndrome, sudden and severe Technique: Volumetric multidetector CT images of the head were obtained without the administration of low osmolar intravenous contrast. Comparison: None available Findings: There is no intra-axial or extra-axial fluid collection. There is no mass effect or midline shift. There is mild global cortical atrophy with sulcal widening and minimal ex vacuo dilatation of the lateral ventricles. Incidental note is made of a cavum septum pellucidum et vergae. Minimal chronic small-vessel disease changes within the subcortical and periventricular white matter. Otherwise, the brain parenchyma is preserved in attenuation and partida-white differentiation. The orbits and their contents are grossly within normal limits. The bony calvarium is grossly intact. The paranasal sinuses are clear. The mastoid air cells are well aerated. Impression: Minimal age-related and chronic small-vessel disease changes of the brain without evidence of acute intracranial abnormality Please note that all CT scans at this facility use dose modulation, iterative reconstruction, and/or weight-based dosing when appropriate to reduce radiation dose to as low as reasonably achievable. Dictated by Randy Figueroa MD @ 03/07/2024 2:02:09 PM (Electronically Signed) Procedure Note Randy Figueroa MD - 03/07/2024 For Patients: As a result of the Cures Act, medical imagingexams and procedure reports are released immediately into your electronicmedical record. You may view this report before your referring provider.If you have questions, please contact your health care provider. Indication: Headache syndrome, sudden and severe Technique: Volumetric multidetector CT images of the head were obtained without theadministration of low osmolar intravenous contrast. Comparison: None available Findings: There is no intra-axial or extra-axial fluid collection. There is no mass effect or midline shift. There is mild global cortical atrophy with sulcal widening and minimal exvacuo dilatation of the lateral ventricles. Incidental note is made of acavum septum pellucidum et vergae. Minimal chronic small-vessel disease changes within the subcortical andperiventricular white matter. Otherwise, the brain parenchyma is preservedin attenuation and partida-white differentiation. The orbits and their contents are grossly within normal limits. The bony calvarium is grossly intact. The paranasal sinuses are clear. The mastoid air cells are well aerated. Impression: Minimal age-related and chronic small-vessel disease changes of the brainwithout evidence of acute intracranial abnormality Please note that all CT scans at this facility use dose modulation,iterative reconstruction, and/or weight-based dosing when appropriate toreduce radiation dose to as low as reasonably achievable. Dictated by Randy Figueroa MD @ 03/07/2024 2:02:09 PM (Electronically Signed) Patsy [facility] CT * (ABNORMAL) LIPID PANEL W REFLEX MEASURED LDL (11/07/2019 9:43 AM CDT) CHOLESTEROL,TOTAL 206(H) 100 - 199 mg/dL 11/07/2019 6:48 PM CDT [facility] TRAL LABORATORY TRIGLYCERIDES 81 <150 mg/dL 11/07/2019 6:48 PM CDT [facility] TR[facility] LABORATORY HDL CHOLESTEROL 49 >40 mg/dL 0 6:48 PM CDT [facility] TRAL LABORATORY NON-HDL CHOLESTEROL 157(H) <145 mg/dl 11/07/2019 6:48 PM CDT [facility] TRAL LABORATORY CHOL/HDL RATIO 4.20 <4.50 11/07/2019 6:48 PM CDT [facility] TRAL LABORATORY LDL CHOLESTEROL 141(H) <=130 mg/dL 11/07/2019 6:48 PM CDT [facility] TRAL LABORAT[facility] PROVIDER ORDERED STATUS RANDOM 11/07/2019 6:48 PM CDT [facility] Blood BLOOD SPECIMEN / Unknown Venipuncture / Unknown 11/07/2019 9:43 AM CDT 11/07/2019 9:43 AM CDT Gabe Ma MD CHEMISTRY [facility] [address] [place] [address], * COLONOSCOPY SCREENING (12/26/2018 8:47 AM CDT) Gabe Ma MD GI PROCEDURE O RD * ANTI HCV (08/06/2018 1:59 PM CDT) HEPATITIS C ANTIBODY Non-React areli Non-React areli 08/06/2018 9:05 PM CDT [facility] Comment:Antibodies to HCV no t detected; does not exclude the possibility of exposure to HCV. Blood BLOOD SPECIMEN / Unknown Venipuncture / Unknown 08/06/2018 1:59 PM CDT 08/06/2018 1:59 PM CDT Gabe Ma MD [facility] [address] [place] [phone], [place] * ANTI HIV 1/2 (08/06/2018 1:59 PM CDT) Pathologist [facility] HIV-1/HIV-2 ANTIBODY Non-Reacti ve Non-Reacti ve 08/06/2018 9:08 PM CDT [facility] TR[facility] Comment:HIV-1 p24 and HIV-1/ HIV-2 Ab not detected. Blood BLOOD SPECIMEN / Unknown Venipuncture / Unknown 08/06/2018 1:59 PM CDT 08/06/2018 1:59 PM CDT Gabe Ma MD [facility] [address] [place] [phone], [place] from Last 3 Months or Most Recently Relevant to Health Maintenance Care Teams Financial Risk Manager Relationship Specialty Start Date End Date Gabe Ma MD [address] [place] [address] PCP - General Family Practice 07/18/18
--- OUTSIDE RECORDS SUMMARY | 2024-03-22 15:30 | XMS_ITS | Referral Summary ---
Author Organization [place] Address [address] [place] [address] Care Team Providers Care Reception Interviewer Name Role Phone MaGabe anderson Primary Care Provider [phone] Allergies No known active allergies Medications albuterol [...] Comments Blood Pressure 126/82 06/20/2022 11:58 AM ORE MINER BLASTING Pulse 76 06/20/2022 11:58 AM ORE MINER BLASTING Temperature 36.7 C (98 F) 06/20/2022 11:58 AM ORE MINER BLASTING Respiratory Rate 16 06/20/2022 11:58 AM ORE MINER BLASTING Oxygen Saturation 93% 06/20/2022 11:58 AM ORE MINER BLASTING Inhaled Oxygen Concentration - - Weight 82.6 kg (182 lb) 06/20/2022 7:08 AM ORE MINER BLASTING Height 185.4 cm (6' 1) 06/20/2022 7:08 AM ORE MINER BLASTING Body Mass Index 24.01 06/20/2022 7:08 AM ORE MINER BLASTING Plan of Treatment Not on file Care Teams Reception Interviewer Relationship Specialty Start Date End Date Gabe Ma [address] [place] [address] PCP - General Family Medicine 06/20/22
--- OUTSIDE RECORDS SUMMARY | 2024-03-22 15:30 | XMS_ITS | Continuity of Care Document ---
Author Organization [facility] Address [address] [facility] [place] [address] Care Team Providers Care Animal Attendants And Trainers Name Role Phone ARLEN SILVESTRE Primary Care Provider Assessment No assessment recorded. Plan of Treatment Reminders Order Date Submit Date Provider Last Modified By Organization Details Last Modified Time Details Appointments ESTABLISH ED 10 2024 02:40P M Van Garnica MD Not available Not available Not available Lab None recorded. Referral None recorded. Procedures None recorded. Surgeries None recorded. Imaging None recorded. Medication Orders Botox 100 unit injection 2023 024 [email or web address] Not available 03/15/2024 15:09:02 Patient TargetsNo targets recorded. Patient InstructionsNo instructions recorded. Reason for Referral None Reported. Problems Name Problem SNOMED Code Status Onset Date Resolution Date Notes Provider Name and Address Organization Details Recorded Time Benign prostatic hyperplasia 279344464 Active 2022 Radha briceño [facility] 14:05:21 Problem Notes None recorded. Procedures Surgical History Date Name Laterality Status Provider Name and Address Organization Details Recorded Time 03/15/20 24 Cystoscopy with Botox Injections completed Maritza Sales [facility] 03/15/2024 13:27:39 03/08/20 24 Urine Culture completed Tracy Cruz [facility] 03/08/2024 12:39:08 03/08/20 24 Urinalysis completed Tracy Cruz [facility] 03/08/2024 12:39:04 02/26/20 24 COMPLEX VISIT completed Van Garnica MD [address] [place] [address],[address], [place], [address], [facility] 02/25/2024 23:10:20 02/26/20 24 Bladder Scan completed Maritza Sales [facility] 02/26/2024 10:22:18 09/15/19 24 COMPLEX VISIT completed Van Garnica MD [address], [place], [address], [facility] 09/15/2023 16:03:47 09/15/19 24 Bladder Scan completed Floresita Hampton [facility] 09/15/2023 15:13:01 03/03/20 23 Bladder Scan completed Van Garnica MD [address], [place], [address], [facility] 03/03/2023 16:02:33 11/25/19 23 UroCuff completed Quyen Humphrey [facility] 11/24/2022 16:32:40 11/25/19 23 Bladder Scan completed Quyen Humphrey [facility] 11/24/2022 16:31:14 08/02/19 23 Bladder Scan completed Maritza Arroyo [facility] 08/01/2022 10:06:51 06/22/19 23 Fill and Pull/Voiding Trial/TOV completed Radha Torres [facility] 06/22/2022 14:06:25 03/23/20 22 Bladder Scan completed Van Garnica MD [address] [place] [address],[address], [place], [address], [facility] 03/23/2022 15:58:09 11/27/19 22 Cystoscopy- male completed Van Garnica MD [address] [place] [address],[address], [place], [address], [facility] 11/26/2021 14:21:20 11/27/19 22 TRUS- Volume size only completed Van Garnica MD [address] [place] [address],[address], [place], [address], [facility] 11/26/2021 16:35:07 11/18/19 22 UroCuff completed Gavin Schmidt [facility] 11/17/2021 11:28:52 11/18/19 22 Bladder Scan completed Gavin Schmidt [facility] 11/17/2021 11:23:35 procedure on knee completed Van Garnica MD [address], [place], [address], [facility] 03/23/2022 15:58:19 procedure on ankle completed Van Garnica MD [address] [place] [address],[address], [place], [address], [facility] 03/23/2022 15:58:25 tonsillectomy completed Van harris MD [address] [place] [address],[address], [place], [address], [facility] 03/23/2022 15:58:31 procedure on elbow completed Maritza Sales [facility] 02/26/2024 10:24:51 Shoulder joint surgery completed Van Garnica MD [address] [place] [address],[address], [place], [address], [facility] 03/23/2022 15:58:51 Imaging Results None recorded. [...] Smoking Status Never Smoker Van Garnica MD [address], [place], [address], [facility] 03/23/2022 15:58:00 What Is Your Level Of Alcohol Consumption? None Information not available 03/23/2022 What Is Your Level Of Caffeine Consumption? Moderate Information not available 03/23/2022 Are You Currently Employed? Yes Information not available 11/25/2022 Recreational Drug Use No Information not available 11/25/2022 What Was The Date Of Your Most Recent Tobacco Screening? 02/26/2024 [email or web address] Information not available 02/26/2024 What Is Your [...] available 2021 15:57:50 Medical History Condition Response Diabetes N Sexually Transmitted Infection N Bleeding Disorder N Other N High Blood Pressure N Kidney Stones N High Cholesterol N GERD/Acid Reflux Y Heart Disease N Cancer N Lung Disease N Depression N Immunizations Vaccine Type Date Status Provider Name and Address Organization Details Recorded Time tetanus toxoid, unspecified formulation 04/04/2016 aminta briceño [facility] 02/23/2023 17:12:00 Influenza, split virus, trivalent, PF 04/28/2017 aminta briceño [facility] 02/23/2023 17:12:00 Influenza, split virus, quadrivalent, PF 01/30/2018 aminta briceño [facility] 02/23/2023 17:12:00 Past Encounters Encounter ID Performer Location Encounter Start Date Encounter Closed Date Diagnosis/Indication Diagnosis SNOMED-CT Code Diagnosis ICD10 Code [id number] Van Garnica MD [facility] [address] [place], [place] [address] 02/26/2024 10:10:25 02/27/2024 09:22:31 Increased frequency of urination 219440234 R35.0 Slowing of urinary stream 33824577 R39.12 Urgent rena jose de jesus to urinate 76431068 R39.15 [id number] Van Garnica MD [facility] [address] [place], [place] [address] 03/08/2024 12:12:13 03/11/2024 16:25:19 Urgent desire to urinate 84535260 R39.15 [id number] Mary Guzmanjoseph [facility] [address] [place], [place] [address] 03/15/2024 11:46:01 03/19/2024 16:55:19 Increased frequency of urination 991430374 R35.0 Slowing of urinary stream 70467328 R39.12 Urgent rnea jose de jesus to urinate 88540066 R39.15 Health Concerns Section Related Observation LastModified by Organization Detai ls LastModified Time None Recorded Concern Status LastModified by Organization Details LastModified Time None Recorded Payers Encounter Date Sequence Insurance Name Policy Number Policy Jensen Covered Member ID Jensen Member ID Guarantor Name 03/15/2024 1 [facility] [id number] Jai Laird [id number] Jai Laird Notes Date Note Type Note Provider Name and Address Organization Details Recorded Time 03/15/2024 text/html 62-year-old lew mcneal who follows with me in our [place] [facility] for urinary frequency, urinary urgency, and [...]
--- OUTSIDE RECORDS SUMMARY | 2024-03-22 15:31 | XMS_ITS | Continuity of Care Document ---
Author Organization [facility] Address [address] [place] [address] Care Team Providers Care Manager Adobe Name Role Phone ARLEN SILVESTRE Primary Care Provider Assessment No assessment recorded. Plan of Treatment Reminders Order Date Submit Date Provider Last Modified By Organization Details Last Modified Time Details Appointments ESTABLISH ED 10 2024 02:40P M Van Garnica MD Not available Not available Not available Lab None recorded. Referral None recorded. Procedures cystoscop y (PROC) 2023 024 [email or web address] Not available 02/27/2024 12:07:50 Surgeries None recorded. Imaging None recorded. Medication Orders None recorded. Patient TargetsNo targets recorded. Patient InstructionsNo instructions recorded. Reason for Referral None Reported. Problems Name Problem SNOMED Code Status Onset Date Resolution Date Notes Provider Name and Address Organization Details Recorded Time Benign prostatic hyperplasia 632726828 Active 2022 Radha briceño [facility] 14:05:21 Problem Notes None recorded. Procedures Surgical History Date Name Laterality Status Provider Name and Address Organization Details Recorded Time 03/15/20 24 Cystoscopy with Botox Injections completed Maritza Sales [facility] 03/15/2024 13:27:39 03/08/20 24 Urine Culture completed Tracy Cruz [facility] 03/08/2024 12:39:08 03/08/20 24 Urinalysis completed Tracy Cruz [facility] 03/08/2024 12:39:04 02/26/20 24 COMPLEX VISIT completed Van Garnica MD [address] [place] [address],[address], [place], [address], [place] [facility] 02/25/2024 23:10:20 02/26/20 24 Bladder Scan completed Maritza Sales [facility] 02/26/2024 10:22:18 09/15/19 24 COMPLEX VISIT completed Van Garnica MD [address], [place], [address], [facility] 09/15/2023 16:03:47 09/15/19 24 Bladder Scan completed Floresita Hampton [facility] 09/15/2023 15:13:01 03/03/20 23 Bladder Scan completed Van Garnica MD [address], [place], [address], [facility] 03/03/2023 16:02:33 11/25/19 23 UroCuff completed Quyen Humphrey [facility] 11/24/2022 16:32:40 11/25/19 23 Bladder Scan completed Quyen Humphrey [facility] 11/24/2022 16:31:14 08/02/19 23 Bladder Scan completed Maritza Arroyo [facility] 08/01/2022 10:06:51 06/22/19 23 Fill and Pull/Voiding Trial/TOV completed Radha Torres [facility] 06/22/2022 14:06:25 03/23/20 22 Bladder Scan completed Van Garnica MD [address], [place], [address], [facility] 03/23/2022 15:58:09 11/27/19 22 Cystoscopy- male completed Van Garnica MD [address], [place], [address], [place] [facility] 11/26/2021 14:21:20 11/27/19 22 TRUS- Volume size only completed Van Garnica MD [address], [place], [address], [facility] 11/26/2021 16:35:07 11/18/19 22 UroCuff completed Gavin Schmidt [facility] 11/17/2021 11:28:52 07/20/20 22 Bladder Scan completed Gavin Schmidt [facility] 11/17/2021 11:23:35 procedure on knee completed Van Garnica MD [address], [place], [address], [facility] 03/23/2022 15:58:19 procedure on ankle completed Van Garnica MD [address], [place], [address], [facility] 03/23/2022 15:58:25 tonsillectomy completed Van harris MD [address] [place] [address],[address], [place], [address], [facility] 03/23/2022 15:58:31 procedure on elbow completed Maritza Sales [facility] 02/26/2024 10:24:51 Shoulder joint surgery completed Van Garnica MD [address] [place] [address],[address], [place], [address], [facility] 03/23/2022 15:58:51 Imaging Results None recorded. [...] Updated DateTime 02/26/2024 170.18 cm 28.2 kg/m2 15778.63 g Maritza Sales [facility] 02/26/2024 10:22:57 Social History Question Answer Notes LastModified by Organizat ion Details LastModified Time Tobacco Smoking Status Never Smoker Van Garnica MD [address], [place], [address], [facility] 03/23/2022 15:58:00 What Is Your Level Of Alcohol Consumption? None Information not available 03/23/2022 What Is Your Level Of Caffeine Consumption? Moderate Information not available 03/23/2022 Are You Currently Employed? Yes Information not available 11/25/2022 Recreational Drug Use No Information not available 11/25/2022 What Was The Date Of Your Most Recent Tobacco Screening? 02/26/2024 Information not available 02/26/2024 What Is Your [...] available 2021 15:57:50 Medical History Condition Response Other N High Blood Pressure N Kidney Stones N Lung Disease N Depression N GERD/Acid Reflux Y Diabetes N Sexually Transmitted Infection N Bleeding Disorder N Cancer N High Cholesterol N Heart Disease N Immunizations Vaccine Type Date Status Provider Name and Address Organization Details Recorded Time tetanus toxoid, unspecified formulation 04/04/2016 aminta briceño [facility] 02/23/2023 17:12:00 Influenza, split virus, trivalent, PF 04/28/2017 aminta briceño [facility] 02/23/2023 17:12:00 Influenza, split virus, quadrivalent, PF 01/30/2018 completed [place] Prieto [facility] 02/23/2023 17:12:00 Past Encounters Encounter ID Performer Location Encounter Start Date Encounter Closed Date Diagnosis/Indication Diagnosis SNOMED-CT Code Diagnosis ICD10 Code [id number] Van Garnica MD [facility] [address] [place] [address] 02/26/2024 10:10:25 02/27/2024 09:22:31 Increased frequency of urination 900138306 R35.0 Slowing of urinary stream 42700354 R39.12 Urgent rena jose de jesus to urinate 89635863 R39.15 Health Concerns Section Related Observation LastModified by Organization Detai ls LastModified Time None Recorded Concern Status LastModified by Organization Details LastModified Time None Recorded Payers Encounter Date Sequence Insurance Name Policy Number Policy Jensen Covered Member ID Jensen Member ID Guarantor Name 02/26/2024 1 [facility] [id number] Jai Laird [id number] Jai Laird Notes Date Note Type Note Provider Name and Address Organization Details Recorded Time 02/26/2024 text/html 62-year-old lew mcneal who follows with me in our [place] clinic for urinary frequency, urinary urgency, and [...] the anticholinergic (vision blurry). Van Garnica MD [address], [place], [address], [facility] 02/26/2024 14:13:55
== END 2024-03-22 15:27 | disposition home or self-care (01) ==
PROVIDERS: PCP Family Medicine; Visit Provider Student in an Organized Health Care Education/Training Program
DX: R51.9 Headache, unspecified (principal)
CPT/HCPCS: 70544; 70551

== ENCOUNTER 2024-03-25 10:58 | Day surgery (SDC) | payer OTHER, SELFPAY ==
[2024-03-25] VITALS (13 sets, daily range): BP systolic 137–161; BP diastolic 70–91; PULSE 62–80; RESP 16–20; TEMP 36.4–36.5; O2SAT 92–95; BMI 28.6
--- OUTSIDE RECORDS SUMMARY | 2024-03-25 11:04 | XMS_ITS | Clinical Summary ---
Author Organization [place] Address [address] [place] [address] Care Team Providers Care Line Out Worker Name Role Phone Ma Gabe Reid Primary Care Provider [phone] Allergies No known active allergies Medications albuterol [...] Comments Blood Pressure 126/82 06/20/2022 11:58 AM WIRE CUTTER Pulse 76 06/20/2022 11:58 AM WIRE CUTTER Temperature 36.7 C (98 F) 06/20/2022 11:58 AM WIRE CUTTER Respiratory Rate 16 06/20/2022 11:58 AM WIRE CUTTER Oxygen Saturation 93% 06/20/2022 11:58 AM WIRE CUTTER Inhaled Oxygen Concentration - - Weight 82.6 kg (182 lb) 06/20/2022 7:08 AM WIRE CUTTER Height 185.4 cm (6' 1) 06/20/2022 7:08 AM WIRE CUTTER Body Mass Index 24.01 06/20/2022 7:08 AM WIRE CUTTER Plan of Treatment Health Maintenance Due Date [...] age to complete this topic Care Teams Line Out Worker Relationship Specialty Start Date End Date Gabe Ma [address] [place] [address] PCP - General Family Medicine 06/20/22
--- OUTSIDE RECORDS SUMMARY | 2024-03-25 11:04 | XMS_ITS | Continuity of Care Document ---
Author Organization [facility] Address [address] [place] [address] Phone Care Team Providers Care Doubler Helper Name Role Phone Joe Rodarte MD Unavailable Unavailable Allergies, Adverse Reactions, Alerts Substance Reaction Status Criticality No Known Allergies Active No Inform ation Medications Medication Instructions Dosage Effective Dates (start - stop) Status Comments BREO ELLIPTA (unknown strength) Not Available - Active AEROSPAN (unknown strength) Not Available - Active OMEPRAZOLE (unknown strength) Not Available - Active CLARITIN (unknown strength) Not Available - Active Procedures Procedure Date Office/Outpatient Visit,Dora Duran 2016 X-Ray Exam Lwr Spine, Min 4 Views Advance Directives Directive Yes / No Effective Date File Name No Information Encounters Encounter Description Practice Location Reason(s) For Visit Diagnoses Date Provider Providers Copied on Encounter [facility], [address], [place], [place], [id number], [place] tel:[phone] [facility] No Information Cayden Diaz. [facility], [address] [place] [address], [address], [place], [place], [id number] , [place]. tel:[phone] [facility], [address], [place], [place], [address], [place] tel:[phone] [facility] Other intervertebral disc displacement, lumbar region Mehbod Amir. [facility], [address] [place] [address] [address], [place], [place], [id number] , [place]. tel:[phone] Referring Provider: Piotr Chow, [place] [address], [place], [address]. tel:[phone] Family History Family Member Type Diagnosis Age At Onset No Information Payers Payer name Insurance type Covered libertarian ID Kofi doyle(s) [facility] [place] [id number] [place] [id number] [facility] [id number] Social History Type Description Quantity Date Captured Comments Sex Male Smoking Status No Information Chief Complaint And Reason For Visit No Information Reason For Referral Reason For Referral No Information Plan Of Treatment Date Type Action Status Future Order: Radiology Order AP -Jaa-Ajfs-Faq Lum (APLatFlExL), Ordered on: Ordered History Of [...]
--- OUTSIDE RECORDS SUMMARY | 2024-03-25 11:04 | XMS_ITS | Referral Summary ---
Author Organization [facility] Address [address] [place] [address] Care Team Providers Care Maritime Pilot Name Role Phone MaGabe anderson Primary Care Provider [phone] Allergies No known active allergies Medications albuterol [...] Comments Blood Pressure 126/82 06/20/2022 11:58 AM SLASHER RUNNER Pulse 76 06/20/2022 11:58 AM SLASHER RUNNER Temperature 36.7 C (98 F) 06/20/2022 11:58 AM SLASHER RUNNER Respiratory Rate 16 06/20/2022 11:58 AM SLASHER RUNNER Oxygen Saturation 93% 06/20/2022 11:58 AM SLASHER RUNNER Inhaled Oxygen Concentration - - Weight 82.6 kg (182 lb) 06/20/2022 7:08 AM SLASHER RUNNER Height 185.4 cm (6' 1) 06/20/2022 7:08 AM SLASHER RUNNER Body Mass Index 24.01 06/20/2022 7:08 AM SLASHER RUNNER Plan of Treatment Not on file Care Teams Maritime Pilot Relationship Specialty Start Date End Date Gabe Ma [address] [place] [address] PCP - General Family Medicine 06/20/22
--- OUTSIDE RECORDS SUMMARY | 2024-03-25 11:04 | XMS_ITS | Referral Summary ---
Author Organization [facility] Address [address] [place] [address] Care Team Providers Care Beam Worker Name Role Phone Gabe Ma Franklin Primary Care Provider [phone] Encounters Date Type Department Care Team Description 03/21/2024 10:00 AM LADLE BUILDER Office Visit [facility] - [address] [place] [address] Shadia Waterman MD Other vascular headache (Primary [...] on file Legal Sex Male 2:26 PM LADLE BUILDER Gender Identity Not on file Sexual Orientation Not on file Plan of Treatment Not on file Procedures Procedure Name Priority Date/Time Associated Diagnosis Comments SEDIMENTATION RATE - WESTERGREN ([facility]) Routine 03/21/2024 10:00 AM LADLE BUILDER Other vascular headache C-REACTIVE PROTEIN, QUANT ([facility]) Routine 03/21/2024 10:00 AM LADLE BUILDER Other vascular headache from Last 3 Months Results * C-REACTIVE PROTEIN, QUANT ([facility]) (03/21/2024 10:00 AM LADLE BUILDER) C-Reactive Protein Quantitave ([facility]) <1 0 - 10 mg/L [facility] 1 Blood 03/21/2024 10:0 0 AM LADLE BUILDER 03/20/2024 11:00 PM LADLE BUILDER Narrative [facility] 1 - 03/22/2024 9:11 AM LADLE BUILDER [facility]formed at: [facility] - [facility] [id number] [place], [place] [id number] Block Cuber: Hansel Swann MD, Phone: [phone] us Shadia Waterman MD [facility] ORDERABLES Final Res ult [facility] 1 * SEDIMENTATION RATE - WESTERGREN ([facility]) (03/21/2024 10:00 AM LADLE BUILDER) Sed Rate- Westergren ([facility]) 3 0 - 30 mm/hr [facility] 1 Blood 03/21/2024 10:0 0 AM LADLE BUILDER 03/20/2024 11:00 PM LADLE BUILDER Narrative [facility] 1 - 03/22/2024 9:11 AM LADLE BUILDER Performed at: - [facility] [place] [employer] [place], [place] [id number] Block Cuber: Hansel Swann MD, Phone: [phone] us Shadia Waterman MD [facility] ORDERABLES Final Res ult [facility] 1 from Last 3 Months Insurance [facility] Address: [facility] [address] [place] [address] Care Teams Beam Worker Relationship Specialty Start Date End Date Gabe Ma [address] [place] [address] PCP - General Family Medicine 03/21/24
--- OUTSIDE RECORDS SUMMARY | 2024-03-25 11:04 | XMS_ITS | Clinical Summary ---
Author Organization [facility] Address [place], [place] [address] Care Team Providers Care Stage Driver Name Role Phone Gabe Ma MD Primary [...] Department Care Team Description 03/20/2024 10:45 AM PROPERTY MANAGEMENT SPECIALIST Office Visit [facility] [address] [place] [address] Michelle Glasgow MD Consult (Right Temporal artery biopsy referred by Dr. Blount) 03/20/2024 Travel 03/19/2024 Telephone [facility] [address] [facility] [place] [address] Gonzalez Blount MD new order needed 03/18/2024 Telephone [facility] [address] [facility] [place] [address] Gonzalez Blount MD 03/15/2024 3:05 PM PROPERTY MANAGEMENT SPECIALIST Office Visit [facility] [address] [facility] [place] [address] Gonzalez Blount MD Headache (waking up at night with the pain ) 03/15/2024 9:00 AM PROPERTY MANAGEMENT SPECIALIST Office Visit [facility] [address] [facility] [address] [place] [address] Joe Real MD Recheck (Left wrist pain) 03/15/2024 Orders Only [facility] Scanner 1 scan: (1-Ord) HETAL UROLOGY, CYSTOSCOPY W BOTOX INJ, 03/15/2024 03/15/2024 Travel 03/07/2024 2:30 PM PROPERTY MANAGEMENT SPECIALIST Ancillary Procedure [facility] [address] [place] [address] 03/07/2024 1:15 PM PROPERTY MANAGEMENT SPECIALIST Office Visit [facility] [address] [place] [address] Patsy Valencia PA Headache 03/07/2024 Travel 03/07/2024 Nurse Triage [address] [address] Patsy Valencia PA Headache 03/07/2024 Telephone [facility] [address] [place] [address] Patsy Valencia PA Headache 01/19/2024 11:45 AM CDT Office Visit [facility] [address] [place] [address] Joe Real MD Surgical Followup (s/p left cubital tunnel release DOS: 01/09/[address] Real) 01/19/2024 Travel 01/09/2024 6:06 AM CDT - 01/09/2024 11:59 PM CDT Hospital Encounter Joe Real MD 01/09/2024 Orders Only [facility] [address] [place] [address] Joe Real MD <No scans attached> 01/09/2024 Orders Only [facility] [address] [place] [address] Bobbi Beasley PA <No scans attached> 01/09/2024 Surgery [facility] [place] [address] [place] [address] Joe Real MD LEFT ELBOW OPEN CUBITAL TUNNEL DECOMPRESSION WITH POSSIBLE TRANSPOSITION. 01/05/2024 3:50 PM CDT Office Visit [facility] [address] [place] [address] Shadia Johnson NP Preoperative Exam (DOS 01/09/24) 01/05/2024 Travel 01/03/2024 Telephone [facility] [address] [place] [address] Joe Real MD 01/03/2024 Telephone [facility] [address] [place] [address] Joe Real MD Prior Authorization (FYI: WESTLEY PA DENIED ) 01/01/2024 Orders Only [facility] [address] [place] [address] Joe Real MD <No scans attached> 12/29/2023 11:30 AM CDT Office Visit [facility] [address] [place] [address] Joe Real MD Wrist Pain/problem (Left wrist [...] file Travel History Travel Start Travel End [place] 03/14/2024 03/14/2024 Obstetrics History Last Filed Vital Signs Vital Sign Reading Time Taken Comments Blood Pressure 137/81 03/20/2024 10:46 AM PROPERTY MANAGEMENT SPECIALIST Pulse 67 03/20/2024 10:46 AM PROPERTY MANAGEMENT SPECIALIST Temperature 36.8 C (98.2 F) 03/07/2024 1:11 PM PROPERTY MANAGEMENT SPECIALIST Respiratory Rate 18 09/01/2021 9:10 AM CDT Oxygen Saturation 97% 03/20/2024 10:46 AM PROPERTY MANAGEMENT SPECIALIST Inhaled Oxygen Concentration - - Weight 85.3 kg (188 lb 1.6 oz) 03/20/2024 10:46 AM PROPERTY MANAGEMENT SPECIALIST Height 170.2 cm (5' 7) 01/05/2024 3:52 PM CDT Body Mass Index 29.46 01/05/2024 3:52 PM CDT Plan of Treatment Upcoming Encounters Date Type Department Care Team (Late st Contact Info) Description 06/20/2024 3:15 PM PROPERTY MANAGEMENT SPECIALIST Office Visit [facility] [address] [place] [address] Joe Real MD [address] [place] [address] Health Maintenance Due Date Last Done Comments [...] C-REACTIVE PROTEIN Routine 03/15/2024 3: 58 PM PROPERTY MANAGEMENT SPECIALIST Acute nonintractable headache, unspecified headache type Temporal headache SEDIMENTATION RATE Routine 03/15/2024 3: 58 PM PROPERTY MANAGEMENT SPECIALIST Acute nonintractable headache, unspecified headache type Temporal headache CBC WITH AUTO DIFFERENTIAL Routine 03/15/2024 3:58 PM PROPERTY MANAGEMENT SPECIALIST Acute nonintractable headache, unspecified headache type Temporal headache BASIC METABOLIC PANEL Routine 03/15/2024 3:58 PM PROPERTY MANAGEMENT SPECIALIST Acute nonintractable headache, unspecified headache type Temporal headache SCAN-OPERATIVE/PROCED URE REPORT 03/15/2024 12:00 AM PROPERTY MANAGEMENT SPECIALIST C-REACTIVE PROTEIN Routine 03/07/2024 1: 52 PM PROPERTY MANAGEMENT SPECIALIST Headache syndrome SEDIMENTATION RATE Routine 03/07/2024 1: 52 PM PROPERTY MANAGEMENT SPECIALIST Headache syndrome CT HEAD BRAIN WO STAT 03/07/2024 1:50 PM PROPERTY MANAGEMENT SPECIALIST Headache syndrome LIPID PANEL W REFLEX MEASURED [...] Results * SEDIMENTATION RATE (03/15/2024 3:58 PM PROPERTY MANAGEMENT SPECIALIST) Only the most recent of2 resultswithin the time period is included. SED RATE BY MODIFIED MARIELENAREN 6 < OR = 20 mm/h [facility] Blood BLOOD SPECIMEN / Unknown 03/15/2024 3:58 PM PROPERTY MANAGEMENT SPECIALIST 03/15/2024 3:58 PM PROPERTY MANAGEMENT SPECIALIST Gonzalez Blount MD HEMATOL OGY Performing Organization Address City/[facility]/ZIP Co de Phone Number [facility] [address] [place] [address], [place] [phone] [facility] [address] [place] [address] * (ABNORMAL) C-REACTIVE PROTEIN (03/15/2024 3:58 PM PROPERTY MANAGEMENT SPECIALIST) Only the most recent of2 resultswithin the time period is included. [facility] C-REACTIVE PROTEIN 21.0(H) <8.0 mg/L [facility] Blood BLOOD SPECIMEN / Unknown 03/15/2024 3:58 PM PROPERTY MANAGEMENT SPECIALIST 03/15/2024 3:58 PM PROPERTY MANAGEMENT SPECIALIST Gonzalez Blount MD SHORE WORKING SUPERVISOR RY Performing Organization Address City/[facility]/ZIP Co de Phone Number [facility] [address] [place] [address], [place] [phone] [facility] [address] [place] [address] * CBC AND DIFFERENTIAL (03/15/2024 3:58 PM PROPERTY MANAGEMENT SPECIALIST) [facility] WHITE BLOOD CELL COUNT 7.4 3.8 - 10.8 Thousand/u L [facility] RED BLOOD CELL COUNT 4.49 4.20 - 5.80 Million/uL [facility] HEMOGLOBIN 13.9 13.2 - 17.1 g/dL [facility] HEMATOCRIT 42.2 38.5 - 50.0 % [facility] MCV 94.0 80.0 - 100.0 [...] BLOOD SPECIMEN / Unknown 03/15/2024 3:58 PM PROPERTY MANAGEMENT SPECIALIST 03/15/2024 3:58 PM PROPERTY MANAGEMENT SPECIALIST Gonzalez Blount MD HEMATOL OGY [facility] [address] [place] [address], [facility] [address] [place] [address] * (ABNORMAL) BASIC METABOLIC PANEL (03/15/2024 3:58 PM PROPERTY MANAGEMENT SPECIALIST) GLUCOSE 115(H) 65 - 99 mg/dL [facility] Comment: Fasting reference interval For someone without known diabetes, a glucose value between 100 and 125 mg/dL is consistent with prediabetes and should be confirmed with a follow-up test. UREA NITROGEN (BUN) 17 7 - 25 mg/dL [facility] CREATININE 0.89 0.70 - 1.35 [...] [facility] CALCIUM 9.6 8.6 - 10.3 mg/dL [facility] Blood BLOOD SPECIMEN / Unknown 03/15/2024 3:58 PM PROPERTY MANAGEMENT SPECIALIST 03/15/2024 3:58 PM PROPERTY MANAGEMENT SPECIALIST Gonzalez Blount MD SHORE WORKING SUPERVISOR RY [facility] [address] [place] [address], [facility] [address] [place] [address] * SCAN-OPERATIVE/PROCEDURE REPORT (03/15/2024 12:00 AM PROPERTY MANAGEMENT SPECIALIST) Scanner OTHER * CT HEAD BRAIN WO (03/07/2024 1:50 PM PROPERTY MANAGEMENT SPECIALIST) Anatomical Region Laterality Modality HEAD, BRAIN Computed Tomogra phy 03/07/2024 2:02 PM PROPERTY MANAGEMENT SPECIALIST Narrative 03/07/2024 2:02 PM PROPERTY MANAGEMENT SPECIALIST For Patients: As a result of the [...] For Patients: As a result of the Century Cures Act, medical imagingexams and procedure reports [...] @ 03/07/2024 2:02:09 PM (Electronically Signed) Patsy Valencia PA CT * (ABNORMAL) LIPID PANEL W REFLEX MEASURED LDL (11/07/2019 9:43 AM CDT) CHOLESTEROL,TOTAL 206(H) 100 - 199 mg/dL 11/07/2019 6:48 PM CDT [facility] TRIGLYCERIDES 81 <150 mg/dL 11/07/2019 6:48 PM CDT [facility] HDL CHOLESTEROL 49 >40 mg/dL 0 6:48 PM CDT [facility] NON-HDL CHOLESTEROL 157(H) <145 mg/dl 11/07/2019 6:48 PM CDT [facility] CHOL/HDL RATIO 4.20 <4.50 11/07/2019 6:48 PM CDT [facility] LDL CHOLESTEROL 141(H) <=130 mg/dL 11/07/2019 6:48 PM CDT [facility] Recurve [facility] PROVIDER ORDERED STATUS RANDOM 11/07/2019 6:48 PM CDT [facility] Blood BLOOD SPECIMEN / Unknown Venipuncture / Unknown 11/07/2019 9:43 AM CDT 11/07/2019 9:43 AM CDT Gabe Ma MD CHEMISTRY [facility] [address] [place] [address], [place] * COLONOSCOPY SCREENING (12/26/2018 8:47 AM CDT) Gabe Ma MD GI PROCEDURE O RD * ANTI HCV (08/06/2018 1:59 PM CDT) HEPATITIS C ANTIBODY Non-React areli Non-React areli 08/06/2018 9:05 PM CDT [facility] Comment:Antibodies to HCV no t detected; does not exclude the possibility of exposure to HCV. Blood BLOOD SPECIMEN / Unknown Venipuncture / Unknown 08/06/2018 1:59 PM CDT 08/06/2018 1:59 PM CDT Gabe Ma MD SEND OUTS [facility] [address] [place] [address], * ANTI HIV 1/2 (08/06/2018 1:59 PM CDT) HIV-1/HIV-2 ANTIBODY Non-Reacti ve Non-Reacti ve 08/06/2018 9:08 PM CDT [facility] Comment:HIV-1 p24 and HIV-1/ HIV-2 Ab not detected. Blood BLOOD SPECIMEN / Unknown Venipuncture / Unknown 08/06/2018 1:59 PM CDT 08/06/2018 1:59 PM CDT Gabe Ma MD SEND OUTS [facility] [address] [place] [address], from Last 3 Months or Most Recently Relevant to Health Maintenance Care Teams Stage Driver Relationship Specialty Start Date End Date Gabe Ma MD [address] [place] [address] PCP - General Family Practice 07/18/18
--- OUTSIDE RECORDS SUMMARY | 2024-03-25 11:04 | XMS_ITS | Clinical Summary ---
Author Organization [facility] Address [address] [place] [address] Care Team Providers Care Tooth Cutter Name Role Phone Anil Gabe Franklin Primary Care Provider [phone] Allergies No known active allergies Medications albuterol [...] Department Care Team Description 03/21/2024 10:00 AM CUSTOMER SUPPORT TECHNICIAN Office Visit [facility] [address] [place] [address] Shadia Waterman MD Other vascular [...] on file Legal Sex Male 2:26 PM CUSTOMER SUPPORT TECHNICIAN Gender Identity Not on file Sexual Orientation [...] - WESTERGREN ([facility]) Routine 03/21/2024 10:00 AM CUSTOMER SUPPORT TECHNICIAN Other vascular headache C-REACTIVE PROTEIN, QUANT ([facility]) Routine 03/21/2024 10:00 AM CUSTOMER SUPPORT TECHNICIAN Other vascular headache from Last 3 Months Results * C-REACTIVE PROTEIN, QUANT ([facility]) (03/21/2024 10:00 AM CUSTOMER SUPPORT TECHNICIAN) C-Reactive Protein Quantitave ([facility]) <1 0 - 10 mg/L [facility] 1 Blood 03/21/2024 10:0 0 AM CUSTOMER SUPPORT TECHNICIAN 03/20/2024 11:00 PM CUSTOMER SUPPORT TECHNICIAN Narrative [facility] 1 - 03/22/2024 9:11 AM CUSTOMER SUPPORT TECHNICIAN Performed at: [facility] [id number] Complaint Coordinator: Hansel Swann MD, Phone: [phone] us Shadia Waterman MD [facility] ORDERABLES Final Res ult Performing Organization Address [facility] de Phone Number [facility] 1 * SEDIMENTATION RATE - WESTERGREN ([facility]) (03/21/2024 10:00 AM CUSTOMER SUPPORT TECHNICIAN) Sed Rate- Westergren ([facility]) 3 0 - 30 mm/hr [facility] 1 Blood 03/21/2024 10:0 0 AM CUSTOMER SUPPORT TECHNICIAN 03/20/2024 11:00 PM CUSTOMER SUPPORT TECHNICIAN Narrative [facility] 1 - 03/22/2024 9:11 AM CUSTOMER SUPPORT TECHNICIAN Performed at: [facility] [id number] Complaint Coordinator: Hansel Swann MD, Phone: [phone] us Shadia Waterman MD [facility] ORDERABLES Final Res ult Performing Organization Address City/[facility] Co de Phone Number [facility] 1 from Last 3 Months Insurance [facility] Care Teams Tooth Cutter Relationship Specialty Start Date End Date Gabe Ma [address] [place] [address] PCP - General Family Medicine 03/21/24
--- OUTSIDE RECORDS SUMMARY | 2024-03-25 11:04 | XMS_ITS | Encounter Summary ---
Author Organization [facility] Address [address] [place] [address] Care Team Providers Care Phone Triage Specialist Name Role Phone MaGabe anderson Primary Care Provider [phone] Reason for Referral * Consultation (Urgent (within 2 weeks) ) - Open Specialty Diagnoses / Procedures Referred By Julee gallegos Referred To Contact Ophthalmology Diagnoses Other vascular headache Shadia Waterman MD [address] [place] [address] [address] [place] [address] Phone: tel: fax: Referral ID Status Reason Start Date Expiration Date V isits Requested Visits Authorized [id number] Open Specialty Services Required 03/21/2024 1 1 Comments Concern for blurred vision and GCA ITY ARBORIST * Other (Routine) - Open Specialty Diagnoses / Procedures Referred By Julee gallegos Referred To Contact Diagnoses Other vascular headache Procedures N NEUROLOGY APPOINTMENT Shadia Waterman MD [address] [place] [address] [address] [place] [address] Phone: tel: fax: Referral ID Status Reason Start Date Expiration Date Visits Re quested Visits Authorized [id number] Open 04/19/2024 1 1 ITY ARBORIST * (Routine) - Open Specialty Diagnoses / Procedures Referred By Julee t Referred To Contact Diagnoses Other vascular headache Procedures MRA HEAD W/O CON Shadia Waterman MD [address] [place] [address] [address] [place] [address] Phone: tel: fax: Referral ID Status Reason Start Date Expiration Date Visits Re quested Visits Authorized [id number] Open 03/21/2024 1 1 ITY ARBORIST Reason for Visit * Reason Comments Consultation Encounter Details Date Type Department Care Team ([facility] st Contact Info) Description 03/21/2024 10:00 AM UTILITY ARBORIST Office Visit [facility] [address] [place] [address]. [address] [place] [phone] Shadia Waterman MD [address] [place] [address] [address] [place] [phone] Other vascular headache (Primary Dx) Social History Tobacco Use Types Packs/Day Years Used Date Smoking Tobacco: Never Smokeless Tobacco: Never Tobacco Cessation:Counseling Given: Not Answered Alcohol Use Standard Drinks/Week Comments Not Asked 0 (1 standard drink = 0.6 oz pur e alcohol) None since 2018 Sex and Gender Information Value Date Recorded Sex Assigned at Not on file Legal Sex Male 2:26 PM UTILITY ARBORIST Gender Identity Not on file Sexual Orientation Not on file documented as of this encounter Patient Instructions * Patient Instructions* Shadia Waterman MD - 03/21/2024 10:00 AM UTILITY ARBORIST [facility]: Call [phone] ITY ARBORIST ITY ARBORIST documented in this encounter Progress Notes * Shadia Waterman MD - 03/21/2024 10:00 AM CST Images from the original note were not included. [facility] [address] [place] [address], [address] [place] [address] Neurology Initial Note / Consultation Assessment and Plan: # Right temporal headache Patient has a new onset right sided headache near the spiritism. On the differential is GCA for which [...] software. Despite proofreading, occasional wrong word or '[id number]' substitutions may have occurred due to limitations of the software. Please read the chart carefully and recognize, using context, where these substitutions may haveoccurred. Shadia Waterman MD Fellowship trained Multiple Sclerosis and Neuroimmunology specialist [facility] Chief Complaint: Consultation History [...] Resource Strain: Low Risk (01/05/2024) [facility] Financial Resource Strain Difficulty of Paying Living Expenses: 3 Difficulty of Paying Living Expenses: Not on file Food Insecurity: No Food Insecurity (01/05/2024) [facility] Food Insecurity Do you worry your food will run out before you are able to buy more?: 1 Transportation Needs: No Transportation Needs (01/05/2024) [facility] Transportation Needs Does lack of transportation keep you from medical appointments?: 1 Does lack of transportation keep you from work, meetings or getting things that you need?: 1 Physical Activity: Not on file Stress: Not on file Social Connections: Socially Integrated (01/05/2024) Received from [facility] Social Connections Do you often feel lonely or isolated from those around you?: 0 Intimate Partner Violence: Not on file Housing Stability: Low Risk (01/05/2024) Received from [facility] Housing Stability What is your housing situation today?: 1 Review of System: ROS: Pertinent positive and negative systems are described in the HPI; the remainder of the 14 systems are negative. Physical Exam: General: no acute distress, well appearing CV: No LE edema Pulm: normal work of breathing MSK: no joint swelling or deformity. No tenderness at this time to the right spiritism. Integument: no visible rash Psych: appropriate affect [...] for personal review. Report documented above. Shadia Wtaerman MD MIPS none TIME: I spent 67 [...] and/or procedures, and documenting in the chart. ITY ARBORIST documented in this encounter Plan of Treatment [...] PROTEIN, QUANT ([facility]) Routine 03/21/2024 10:00 AM UTILITY ARBORIST Other vascular headache SEDIMENTATION RATE - WESTERGREN ([facility]) Routine 03/21/2024 10:00 AM UTILITY ARBORIST Other vascular headache documented in this encounter Results * SEDIMENTATION RATE - WESTERGREN ([facility]) (03/21/2024 10:00 AM UTILITY ARBORIST) Sed Rate- Westergren ([facility]) 3 0 - 30 mm/hr [facility] 1 Blood 03/21/2024 10:0 0 AM UTILITY ARBORIST 03/20/2024 11:00 PM UTILITY ARBORIST Narrative [facility] 1 - 03/22/2024 9:11 AM UTILITY ARBORIST Performed at: - [facility] [id number] Early Childhood Services Coordinator: Hansel Swann MD, Phone: [phone] us Shadia Waterman MD [facility] ORDERABLES Final Res ult [facility] 1 * C-REACTIVE PROTEIN, QUANT ([facility]) (03/21/2024 10:00 AM UTILITY ARBORIST) Pathologist [facility] C-Reactive Protein Quantitave ([facility]) <1 0 - 10 mg/L [facility] 1 Blood 03/21/2024 10:0 0 AM UTILITY ARBORIST 03/20/2024 11:00 PM UTILITY ARBORIST Narrative [facility] 1 - 03/22/2024 9:11 AM UTILITY ARBORIST Performed at: - [facility] [id number] Early Childhood Services Coordinator: Hansel Swann MD, Phone: [phone] us Shadia Waterman MD [facility] ORDERABLES Final Res ult [facility] 1 documented in this encounter Visit Diagnoses Diagnosis Other vascular headache- Primary documented in this encounter Care Teams Phone Triage Specialist Relationship Specialty Start Date End Date Gabe Ma [address] [place] [address] PCP - General Family Medicine 03/21/24 documented as of this encounter
[2024-03-25] MEDS: LIDOCAINE 1% MDV 20 ML INJECTION (12:50)
[2024-03-25] MEDS: BUPIVACAINE 0.25% 30 ML INJECTION (12:50)
--- NOTE | 2024-03-25 13:01 | PM.GSPRC ---
Operative Note Date of procedure: 03/25/24 Pre-op diagnosis: giant cell arteritis Post-op diagnosis: same Type of Procedure: right temporal artery biopsy Indications: patient is a 63-year-old male who presented to his primary care provider with new onset right temporal headaches. Due to the concern for temporal arteritis it was recommended he undergo a temporal artery biopsy. Risks and benefits of the procedure were discussed at length with the patient. Risks included, but were not limited to: Bleeding, infection, risk of damage to surrounding structures and possible need for additional procedures. All questions and concerns were addressed with patient agreeing to proceed. Procedure Description: patient was brought into the operating room. A time-out was performed. The area was prepped and draped in sterile fashion. Local anesthetic was used to anesthetize the area. Attention was first directed to the right side. The handheld Doppler was utilized to jenny out the course of the temporal artery. Local anesthetic was utilized to numb up the area. A 15 blade was used to make an approximate 5 cm incision. Cautery was then used to divide the subcutaneous tissue and assure hemostasis. The artery was visualized within the temporoparietal fascia, which was entered with sharp dissection. A proximal portion of the artery was dissected out and ligated with 3 0 Vicryl and a small clip. The dissection was then carried distally for approximately 2 cm and ligated. The specimen was then carefully removed, trying to limit manipulation of the vessel itself, and passed off to the back table. Again hemostasis was assured and the incision closed with interrupted 3 0 Vicryl and running 4 Monocryl. Sterile dressings were applied. Findings: Normal appearing right temporal artery. Anesthesia: local Surgeon: Michelle Glasgow MD Estimated blood loss (mL): 2 Additional Specimen Information: Right temporal artery Condition: stable Disposition: same day
== END 2024-03-25 13:07 | disposition home or self-care (01) ==
PROVIDERS: PCP Family Medicine; Visit Provider Surgery
PROC: (CPT 37609; principal; 2024-03-25 12:00)
DX: M31.6 Other giant cell arteritis (principal); H53.8 Other visual disturbances; R51.9 Headache, unspecified
CPT/HCPCS: 37609; 76998; 88305; J2003; J0665

== ENCOUNTER 2024-04-30 12:29 | Outpatient (CLI) | payer OTHER, SELFPAY ==
--- OUTSIDE RECORDS SUMMARY | 2024-04-26 15:09 | XMS_ITS | Data Portability ---
Author Organization [facility], [facility] Address [address] [place] [address] Care Team Providers Care Accountant Clerk Name Role Phone ARLEN SILVESTRE Primary Care Provider [phone] Assessment No assessment recorded. Plan of Treatment Reminders Order Date Submit Date Provider Last Modified By Organization Details Last Modified Time Details Appointments [facility]LIS [facility] 10 2024 02:40P M Van Garnica MD Not available Not available Not available Lab urinalys is, dipstick 2023 024 [email or web address] [facility], [address], [place], [address], 03/08/2024 12:41:14 culture, urine [address] [facility], [address], [address], [place], [address], 03/10/2024 09:37:24 Referral None recorded . Procedures cystosco py (PROC) 2023 024 [email or web address] Not available 02/27/2024 12:07:50 Surgeries None recorded . Imaging None recorded . Medication Orders solifena nazia 10 mg tablet 2023 024 [email or web address] [id number], [address] , [place], [place], [id number], 10/17/2023 10:13:14 Myrbetri q 50 mg tablet,e xtended release 2023 024 [email or web address] [id number], [address] [facility], [place], [place], [id number], 02/26/2024 10:23:58 Botox 100 unit injectio n 2023 024 [email or web address] Not available 03/15/2024 15:09:02 Patient TargetsNo targets [...] for provi timothy revie w. Not Available [facility] [address], [place], [address], 03/10/2024 09:37:24 03/08/20 24 03/08/2024 urina lysis , dipst ick BLOOD Negati ve Not Available [facility] [address], [place], [address], 03/08/2024 12:39:43 03/08/20 24 03/08/2024 urina lysis , dipst ick NITRITES Negati ve Not Available [facility] [address], [place], [address], 03/08/2024 12:39:43 03/08/20 24 03/08/2024 urina lysis , dipst ick LEUKOCYTES Negati ve Not Available [facility] [address], [place], [address], 03/08/2024 12:39:43 Result Notes None recorded. Problems Name Problem SNOMED Code Status Onset Date Resolution Date Notes Provider Name and Address Organization Details Recorded Time Benign prostatic hyperplasia 826369908 Active 2022 Radha Brian briceño [facility] 14:05:21 Problem Notes None recorded. Procedures Surgical History Date Name Laterality Status Provider Name and Address Organization Details Recorded Time 05/03/19 25 Bladder Scan active Maritza Sales [facility] 04/25/2024 15:27:19 03/15/20 24 Cystoscopy with Botox Injections completed Maritza Sales [facility] 03/15/2024 13:27:39 03/08/20 24 Urine Culture completed Tracy Cruz [facility] 03/08/2024 12:39:08 03/08/20 24 Urinalysis completed Tracy Cruz [facility] 03/08/2024 12:39:04 02/26/20 24 COMPLEX VISIT completed Van Garnica MD [address] [place] [address],[address], [address], [facility] 02/25/2024 23:10:20 02/26/20 24 Bladder Scan completed Maritza Sales [facility] 02/26/2024 10:22:18 09/15/19 24 COMPLEX VISIT completed Van Garnica MD [address] [place] [address],[address], [address], [facility] 09/15/2023 16:03:47 09/15/19 24 Bladder Scan completed Floresita Hampton [facility] 09/15/2023 15:13:01 03/03/20 23 Bladder Scan completed Van Garnica MD [address] [place] [address],[address], [place], [address], [facility] 03/03/2023 16:02:33 11/25/19 23 UroCuff completed Quyen Humphrey [facility] 11/24/2022 16:32:40 11/25/19 23 Bladder Scan completed Quyen Humphrey [facility] 11/24/2022 16:31:14 08/02/19 23 Bladder Scan completed Maritza Arroyo [facility] 08/01/2022 10:06:51 06/22/19 23 Fill and Pull/Voiding Trial/TOV completed Radha Hansonen [facility] 06/22/2022 14:06:25 03/23/20 Bladder Scan completed Van Garnica MD [address] [place] [address],[address], [place], [address], [facility] 03/23/2022 15:58:09 11/27/19 22 Cystoscopy- male completed Van Garnica MD [address] [place] [address],[address], [place], [address], [facility] 11/26/2021 14:21:20 11/27/19 TRUS- Volume size only completed Van Garnica MD [address] [place] [address],[address], [place], [address], [facility] 11/26/2021 16:35:07 11/18/19 22 UroCuff completed Gavin Schmidt [facility] 11/17/2021 11:28:52 11/18/19 22 Bladder Scan completed Gavin Schmidt [facility] 11/17/2021 11:23:35 procedure on knee completed Van Garnica MD [address] [place] [address],[address], [place], [address], [facility] 03/23/2022 15:58:19 procedure on ankle completed Van Garnica MD [address] [place] [address],[address], [place], [address], [facility] 03/23/2022 15:58:25 tonsillectomy completed Van harris MD [address] [place] [address],[address], [place], [address], [facility] 03/23/2022 15:58:31 procedure on elbow completed Maritza Sales [facility] 02/26/2024 10:24:51 Shoulder joint surgery completed Van Garnica MD [address] [place] [address],[address], [place], [address], [facility] 03/23/2022 15:58:51 Imaging Results [...] Updated DateTime 03/03/2023 170.18 cm 28.2 kg/m2 98246.63 g Van Garnica MD [address], [address], [facility] 03/03/2023 16:01:55 Date Recorded Body height Body mass index (BMI) Body weight Provider Name and Address Organization Details Last Updated DateTime 09/15/2023 170.18 cm 28.2 kg/m2 48258.63 g Maritza Arroyo [facility] 09/15/2023 14:59:43 Date Recorded Body height Body mass index (BMI) Body weight Provider Name and Address Organization Details Last Updated DateTime 02/26/2024 170.18 cm 28.2 kg/m2 15860.63 g Maritza Sales [facility] 02/26/2024 10:22:57 Social History Question Answer Notes LastModified by Organizat ion Details LastModified Time Tobacco Smoking Status Never Smoker Van Garnica MD [address] [facility] [address], [place], [address], [facility] 03/23/2022 15:58:00 What Is Your Level Of Alcohol Consumption? None Information not available 03/23/2022 What Is Your Level Of Caffeine Consumption? Moderate Information not available 03/23/2022 Are You Currently Employed? Yes Information not available 11/25/2022 Recreational Drug Use No Information not available 11/25/2022 What Was The Date Of Your Most Recent Tobacco Screening? 02/26/2024 [email or web address] Information not available 02/26/2024 What Is Your [...] Disease N Immunizations Vaccine Type Date Status Note Provider Nam e and Address Organization Details Recorded Time tetanus toxoid, unspecified formulation 04/04/2016 completed Vianca briceño [facility] 02/23/2023 17:12:00 Influenza, split virus, trivalent, PF 04/28/2017 aminta briceño [facility] 02/23/2023 17:12:00 Influenza, split virus, quadrivalent, PF 01/30/2018 aminta briceño [facility] 02/23/2023 17:12:00 Past Encounters Encounter ID Performer Location Encounter Start Date Encounter Closed Date Diagnosis/Indication Diagnosis SNOMED-CT Code Diagnosis ICD10 Code [id number] Van Garnica MD [facility] [address] [place], [place] [address] 11/17/2021 09:50:51 11/19/2021 13:47:17 Benign prostatic hyperplasia with outflow obstruction 528341726 N40.1 [id number] MD FAUSTINO [facility] [address] [place], [place] [address] 11/26/2021 13:53:58 11/29/2021 12:24:49 Increased frequency of urination 833034313 R35.0 Slowing of urinary stream 42054557 R39.12 Urgent rena jose de jesus to urinate 80970379 R39.15 [id number] MD FAUSTINO [facility] [address] [place], [place] [address] 03/23/2022 15:48:55 03/28/2022 11:38:28 Increased frequency of urination 898506228 R35.0 Slowing of urinary stream 03577844 R39.12 Urgent rena jose de jesus to urinate 71293006 R39.15 [id number] Van Garnica MD _[facility] [address] [place], [place] [address] 06/22/2022 10:58:40 06/27/2022 11:51:03 Benign prostatic hyperplasia 422078436 N40.1 [id number] MD FAUSTINO [facility] [address] [place], [place] [address] 08/01/2022 09:54:25 08/03/2022 15:28:36 Increased frequency of urination 279119781 R35.0 Slowing of urinary stream 70219851 R39.12 Urgent rena jose de jesus to urinate 53792457 R39.15 [id number] Van Garnica MD [facility] [address] [place] [address] 11/25/2022 15:49:48 12/05/2022 08:59:56 Increased frequency of urination 768041840 R35.0 Slowing of urinary stream 65683911 R39.12 Urgent rena jose de jesus to urinate 26010544 R39.15 [id number] MD FAUSTINO [facility] [address] [place] [address] 11/24/2022 15:57:30 12/01/2022 12:02:38 Increased frequency of urination 964606740 R35.0 [id number] Van Garnica MD [facility] [address] [place] [address] 03/03/2023 15:47:36 03/08/2023 16:03:36 Increased frequency of urination 220093517 R35.0 Slowing of urinary stream 24800806 R39.12 Urgent rena jose de jesus to urinate 22984572 R39.15 [id number] Van Garnica MD [facility] [address] [place] [address] 09/15/2023 14:55:32 09/18/2023 09:50:36 Increased frequency of urination 251780220 R35.0 Slowing of urinary stream 92893088 R39.12 Urgent rena jose de jesus to urinate 23035866 R39.15 [id number] Van Garnica MD [facility] [address] [place] [address] 02/26/2024 10:10:25 02/27/2024 09:22:31 Increased frequency of urination 197526796 R35.0 Slowing of urinary stream 67734673 R39.12 Urgent rena jose de jesus to urinate 26008078 R39.15 [id number] Van Garnica MD [facility] [address] [place], [place] [address] 03/08/2024 12:12:13 03/11/2024 16:25:19 Urgent desire to urinate 64194433 R39.15 [id number] Mary Stewart [facility] [address] [place] [address] 03/15/2024 11:46:01 03/19/2024 16:55:19 Increased frequency of urination 412018265 R35.0 Slowing of urinary stream 43459118 R39.12 Urgent rena jose de jesus to urinate 58332425 R39.15 Health Concerns Section Related Observation LastModified by Organization Detai ls LastModified Time None Recorded Concern Status LastModified by Organization Details LastModified Time None Recorded Advance Directives Directive None Recorded Payers Encounter Date Sequence Insurance Name Policy Number Policy Jensen Covered Member ID Jensen Member ID Guarantor Name 03/03/2023 1 [id number] Jai Laird [id number] Jai Laird 09/15/2023 1 [facility] [id number] Jai Laird [id number] Jai Laird 02/26/2024 1 [facility] [id number] Jai Laird [id number] Jai Laird 03/08/2024 1 [facility] [id number] Jai Laird [id number] Jai Laird 03/15/2024 1 [facility] [id number] Jai Laird [id number] Jai Laird Notes Date Note Type Note Provider Name and Address Organization Details Recorded Time 03/03/2023 text/html 62-year-old lew mcneal who follows with me in our [place] clinic for urinary frequency, urinary urgency, and [...] with less overall urgency. Van Garnica MD [address] [place] [address],[address], [place], [address], [facility] 03/03/2023 17:05:51 09/15/2023 text/html 62-year-old lew mcneal who follows with me in our [place] clinic for urinary frequency, urinary urgency, and [...] others. Stopped all medication. Van Garnica MD [address] [facility],[address], [place], [address], [facility] 09/15/2023 16:04:13 02/26/2024 text/html 62-year-old lew mcneal who follows with me in our [place] [facility] for urinary frequency, urinary urgency, and [...] the anticholinergic (vision blurry). Van Garnica MD [address] [place] [address],[address], [place], [address], [facility] 02/26/2024 14:13:55 03/08/2024 text/html Pt presents to [facility] for UA/UC prior to Botox procedure next weekNurse visit completed by Tracy Juan RN. Van Garnica MD [address] [place] [address],[address], [place], [address], [facility] 03/08/2024 12:55:51 03/15/2024 text/html 62-year-old gent fredis who follows with me in our [place] [facility] for urinary frequency, urinary urgency, and [...] is botox 100 units [place] Hernández - [facility] 03/15/2024 14:06:42
--- OUTSIDE RECORDS SUMMARY | 2024-04-26 15:09 | XMS_ITS | Continuity of Care Document ---
Author Organization [facility], [facility] Address [address] [place] [address] Care Team Providers Care Planning Analyst Name Role Phone ARLEN SILVESTRE Primary Care Provider Assessment No assessment recorded. Plan of Treatment Reminders Order Date Submit Date Provider Last Modified By Organization Details Last Modified Time Details Appointments ESTABLIS [facility] 10 2024 02:40P Geraldo Garnica MD Not available Not available Not available Lab urinalys is, dipstick 2023 024 [email or web address] [facility], [address], [place], [address], 03/08/2024 12:41:14 culture, urine 2023 024 [facility], [address], [address], [place], [address], 03/10/2024 09:37:24 Referral None recorded . Procedures [...] Not Available [facility] [address], [place], [address], 03/08/2024 12:39:43 03/08/20 24 03/08/2024 urina lysis , dipst ick NITRITES Negati ve Not Available [facility] [address], [place], [address], 03/08/2024 12:39:43 03/08/20 24 03/08/2024 urina lysis , dipst ick LEUKOCYTES Negati ve Not Available [facility] [address], [place], [address], 03/08/2024 12:39:43 Result Notes None recorded. Problems Name Problem SNOMED Code Status Onset Date Resolution Date Notes Provider Name and Address Organization Details Recorded Time Benign prostatic hyperplasia [id number] Active 2022 Radha briceño [facility] 14:05:21 Problem Notes None recorded. Procedures Surgical History Date Name Laterality Status Provider Name and Address Organization Details Recorded Time 05/03/19 25 Bladder Scan active Maritza Sales [facility] 04/25/2024 15:27:19 03/15/20 24 Cystoscopy with Botox Injections completed Maritza Sales [facility] 03/15/2024 13:27:39 03/08/20 24 Urine Culture completed Tracy Cruz [facility] 03/08/2024 12:39:08 03/08/20 24 Urinalysis completed Tracy Cruz [facility] 03/08/2024 12:39:04 02/26/20 24 COMPLEX VISIT completed Van Garnica MD [address] [place] [address],[address], [address], [facility] 02/25/2024 23:10:20 02/26/20 24 Bladder Scan completed Maritza Sales [facility] 02/26/2024 10:22:18 09/15/19 24 COMPLEX VISIT completed Van Garnica MD [address] [place] [address],[facility] [address], [address], [facility] 09/15/2023 16:03:47 09/15/19 24 Bladder Scan completed Floresita Hampton [facility] 09/15/2023 15:13:01 03/03/20 23 Bladder Scan completed Van Garnica MD [address] [place] [address],[address], [place], [address], [facility] 03/03/2023 16:02:33 11/25/19 23 UroCuff completed Quyen Humphrey [facility] 11/24/2022 16:32:40 11/25/19 23 Bladder Scan completed Quyen Humphrey [facility] 11/24/2022 16:31:14 08/02/19 23 Bladder Scan completed Maritza Arroyo [facility] 08/01/2022 10:06:51 06/22/19 23 Fill and Pull/Voiding Trial/TOV completed Radha Torres [facility] 06/22/2022 14:06:25 03/23/20 22 Bladder Scan completed Van Garnica MD [address] [place] [address],[address], [place], [address], [facility] 03/23/2022 15:58:09 11/27/19 22 Cystoscopy- male completed Van Garnica MD [address] [place] [address],[address], [place], [address], [facility] 11/26/2021 14:21:20 11/27/19 22 TRUS- Volume size only completed Van Garnica MD [address] [place] [address],[address], [place], [address], [facility] 11/26/2021 16:35:07 11/18/19 22 UroCuff completed Gavin Schmidt [facility] 11/17/2021 11:28:52 11/18/19 22 Bladder Scan completed Gavin Schmidt [facility] 11/17/2021 11:23:35 procedure on knee completed Van Garnica MD [address] [place] [address],[address], [place], [address], [facility] 03/23/2022 15:58:19 procedure on ankle completed Van Garnica MD [address] [place] [address],[address], [place], [address], [facility] 03/23/2022 15:58:25 tonsillectomy completed Van harris MD [address] [place] [address],[address], [place], [address], [facility] 03/23/2022 15:58:31 procedure on elbow completed Maritza Sales [facility] 02/26/2024 10:24:51 Shoulder joint surgery completed Van Garnica MD [address] [facility],[address], [place], [address], [facility] 03/23/2022 15:58:51 Imaging Results None [...] Status Never Smoker Van Garnica MD [address] [facility],[address], [place], [address], [facility] 03/23/2022 15:58:00 What Is Your Level Of Alcohol Consumption? None Information not available 03/23/2022 What Is Your Level Of Caffeine Consumption? Moderate Information not available 03/23/2022 Are You Currently Employed? Yes Information not available 11/25/2022 Recreational Drug Use No Information not available 11/25/2022 What Was The Date Of Your Most Recent Tobacco Screening? 02/26/2024 [email or web address] Information not available 02/26/2024 What Is Your [...] Disease N Depression N GERD/Acid Reflux Y Sexually Transmitted Infection N Cancer N High Cholesterol N Diabetes N Bleeding Disorder N Heart Disease N Immunizations Vaccine Type Date Status Note Provider Nam e and Address Organization Details Recorded Time tetanus toxoid, unspecified formulation 04/04/2016 completed HETAL Prieto [facility] 02/23/2023 17:12:00 Influenza, split virus, trivalent, PF 04/28/2017 completed HETAL Prieto [facility] 02/23/2023 17:12:00 Influenza, split virus, quadrivalent, PF 01/30/2018 completed HETAL Prieto [facility] 02/23/2023 17:12:00 Past Encounters Encounter ID Performer Location Encounter Start Date Encounter Closed Date Diagnosis/Indication Diagnosis SNOMED-CT Code Diagnosis ICD10 Code [id number] MD FAUSTINO [facility] [address] [place] [address] 02/26/2024 10:10:25 02/27/2024 09:22:31 Increased frequency of urination 138431190 R35.0 Slowing of urinary stream 67551538 R39.12 Urgent rena jose de jesus to urinate 55059171 R39.15 [id number] Van Garnica MD [facility] [address] [place] [address] 03/08/2024 12:12:13 03/11/2024 16:25:19 Urgent desire to urinate 74438064 R39.15 Health Concerns Section Related Observation LastModified by Organization Detai ls LastModified Time None Recorded Concern Status LastModified by Organization Details LastModified Time None Recorded Payers Encounter Date Sequence Insurance Name Policy Number Policy Jensen Covered Member ID Jensen Member ID Guarantor Name 03/08/2024 1 [facility] [id number] Jai Laird [id number] Jai Laird Notes Date Note Type Note Provider Name and Address Organization Details Recorded Time 03/08/2024 text/html Pt presents to clinic for UA/UC prior to Botox procedure next weekNurse visit completed by Tracy Juan RN. Van Garnica MD [address] [place] [address],[facility] [address], [place], [address], [facility] 03/08/2024 12:55:51
--- OUTSIDE RECORDS SUMMARY | 2024-04-26 15:09 | XMS_ITS | Continuity of Care Document ---
Author Organization [facility], [facility] Address [address] [place] [address] Care Team Providers Care Research Dietitian Name Role Phone ARLEN SILVESTRE Primary Care [...] Organization Details Recorded Time Benign prostatic hyperplasia [id number] Active 2022 Radha briceño [facility] 14:05:21 Problem Notes None recorded. Procedures Surgical History Date Name Laterality Status Provider Name and Address Organization Details Recorded Time 05/03/19 25 Bladder Scan active Maritza Sales [facility] 04/25/2024 15:27:19 03/15/20 24 Cystoscopy with Botox Injections completed Maritza Sales [facility] 03/15/2024 13:27:39 03/08/20 24 Urine Culture completed Tracy Cruz [facility] 03/08/2024 12:39:08 03/08/20 24 Urinalysis completed Tracy Cruz [facility] 03/08/2024 12:39:04 02/26/20 24 COMPLEX VISIT completed Van Garnica MD [address] [facility] [address], [place], [address], [facility] 02/25/2024 23:10:20 02/26/20 24 Bladder Scan completed Maritza Sales [facility] 02/26/2024 10:22:18 09/15/19 24 COMPLEX VISIT completed Van Garnica MD [address] [place] [address],[address], [place], [address], [facility] 09/15/2023 16:03:47 09/15/19 24 Bladder Scan completed Floresita Hampton [facility] 09/15/2023 15:13:01 03/03/20 23 Bladder Scan completed Van Garnica MD [address] [place] [address],[address], [place], [address], [facility] 03/03/2023 16:02:33 11/25/19 23 UroCuff completed Quyen Humphrey [facility] 11/24/2022 16:32:40 11/25/19 23 Bladder Scan completed Quyen Humphrey [facility] 11/24/2022 16:31:14 08/02/19 23 Bladder Scan completed Maritza Arroyo [facility] 08/01/2022 10:06:51 06/22/19 23 Fill and Pull/Voiding Trial/TOV completed Radha Torres [facility] 06/22/2022 14:06:25 03/23/20 22 Bladder Scan completed Van Garnica MD [address] [place] [address],[address], [place], [address], [facility] 03/23/2022 15:58:09 11/27/19 22 Cystoscopy- male completed Van Garnica MD [address] [place] [address],[address], [place], [address], [facility] 11/26/2021 14:21:20 11/27/19 22 TRUS- Volume size only completed Van Garnica MD [address] [place] [address],[address], [place], [address], [facility] 11/26/2021 16:35:07 11/18/19 22 UroCuff completed Gavin Schmidt [facility] 11/17/2021 11:28:52 11/18/19 Bladder Scan completed Gavin Schmidt [facility] 11/17/2021 11:23:35 procedure on knee completed Van Garnica MD [address] [facility] [address], [place], [address], [facility] 03/23/2022 15:58:19 procedure on ankle completed Van Garnica MD [address] [place] [address],[address], [place], [address], [facility] 03/23/2022 15:58:25 tonsillectomy completed Van harris MD [address] [place] [address],[address], [place], [address], [facility] 03/23/2022 15:58:31 procedure on elbow completed Maritza Sales [facility] 02/26/2024 10:24:51 Shoulder joint surgery completed Van Garnica MD [address] [place] [address],[address], [place], [address], [facility] 03/23/2022 15:58:51 Imaging Results None [...] Updated DateTime 02/26/2024 170.18 cm 28.2 kg/m2 93051.63 g Maritza aSles [facility] 02/26/2024 10:22:57 Social History Question Answer Notes LastModified by Organizat ion Details LastModified Time Tobacco Smoking Status Never Smoker Van Garnica MD [address] [place] [address],[facility] [address], [place], [address] 03/23/2022 15:58:00 What Is Your Level Of Alcohol Consumption? None Information not available 03/23/2022 What Is Your Level Of Caffeine Consumption? Moderate Information not available 03/23/2022 Are You Currently Employed? Yes Information not available 11/25/2022 Recreational Drug Use No Information not available 11/25/2022 What Was The Date Of Your Most Recent Tobacco Screening? 02/26/2024 [email or web address] Information not available 02/26/2024 What Is Your [...] Response Sexually Transmitted Infection N Diabetes N Bleeding Disorder N Other N High Blood Pressure N Kidney Stones N Cancer N Lung Disease N Depression N High Cholesterol N GERD/Acid Reflux Y Heart Disease N Immunizations Vaccine Type Date Status Note Provider Nam e and Address Organization Details Recorded Time tetanus toxoid, unspecified formulation 04/04/2016 completed Vianca briceño, [facility] 02/23/2023 17:12:00 Influenza, split virus, trivalent, PF 04/28/2017 completed HETAL Prieto [facility] 02/23/2023 17:12:00 Influenza, split virus, quadrivalent, PF 01/30/2018 completed HETAL Prieto [facility] 02/23/2023 17:12:00 Past Encounters Encounter ID Performer Location Encounter Start Date Encounter Closed Date Diagnosis/Indication Diagnosis SNOMED-CT Code Diagnosis ICD10 Code [id number] Van Garnica MD [facility] [address] [place] [address] 02/26/2024 10:10:25 02/27/2024 09:22:31 Increased frequency of urination 355726462 R35.0 Slowing of urinary stream 37118849 R39.12 Urgent rena jose de jesus to urinate 22318348 R39.15 Health Concerns Section Related Observation LastModified by Organization Detai ls LastModified Time None Recorded Concern Status LastModified by Organization Details LastModified Time None Recorded Payers Encounter Date Sequence Insurance Name Policy Number Policy Jensen Covered Member ID Jensen Member ID Guarantor Name 02/26/2024 1 [facility] [id number] Jai Laird [id number] Jai Laird Notes Date Note Type Note Provider Name and Address Organization Details Recorded Time 02/26/2024 text/html 62-year-old lew mcneal who follows with me in our [place] clinic for urinary frequency, urinary urgency, and [...] the anticholinergic (vision blurry). Van Garnica MD [address] [facility] [address], [place], [address], [facility] 02/26/2024 14:13:55
[2024-04-30 12:59] LABS: Creatinine* 0.8 mg/dL (0.5-1.5); Estimated Glomerular Filt Rate 99 ml/min
--- NOTE | 2024-04-30 13:00 | CRLHL7_ITS ---
For Patients: As a result of the Century Cures Act, medical imaging exams and procedure reports are released immediately into your electronic medical record. You may view this report before your referring provider. If you have questions, please contact your health care provider. CLINICAL HISTORY: Severe headache. TECHNIQUE: Standard helical CT image acquisition through the head following the administration of intravenous contrast was performed. 3D and MIP reconstructions were performed at a separate workstation and permanently archived. COMPARISON: None available. FINDINGS: No intracranial proximal large vessel occlusion. Vper-vb-igsvqbpx stenosis of the non-dominant mid intracranial segment of the right vertebral artery. No evidence of cerebral aneurysm. No findings to suggest an arterial-venous shunting lesion. The major dural venous sinuses and deep venous system are patent. IMPRESSION: 1. Zweq-nq-faqwqdjz stenosis of the non-dominant mid intracranial segment of the right vertebral artery. 2. Otherwise, no intracranial proximal large vessel occlusion, flow-limiting luminal stenosis, or cerebral aneurysm. Please note that all CT scans at this facility use dose modulation, iterative reconstruction, and/or weight-based dosing when appropriate to reduce radiation dose to as low as reasonably achievable. Dictated by Gab Helton MD @ 05/01/2024 9:26:03 AM (Electronically Signed)
--- NOTE | 2024-04-30 13:30 | CRLHL7_ITS ---
For Patients: As a result of the Century Cures Act, medical imaging exams and procedure reports are released immediately into your electronic medical record. You may view this report before your referring provider. If you have questions, please contact your health care provider. CLINICAL HISTORY: Severe headache. TECHNIQUE: Standard helical CT image acquisition through the neck was performed after intravenous contrast bolus enhancement. 3D and MIP reconstructions were performed at a separate workstation and permanently archived. COMPARISON: None available. FINDINGS: The origins of the great vessels from the aortic arch are patent. The common carotid arteries are patent. No significant luminal stenoses of the proximal ICAs by NASCET criteria. The more distal cervical segments of the ICAs are patent. The origins and cervical segments of the vertebral arteries are patent. IMPRESSION: Patent cervical arterial vasculature without hemodynamically significant luminal stenosis. Please note that all CT scans at this facility use dose modulation, iterative reconstruction, and/or weight-based dosing when appropriate to reduce radiation dose to as low as reasonably achievable. Dictated by Gab Helton MD @ 05/01/2024 9:23:24 AM (Electronically Signed)
== END 2024-04-30 12:30 | disposition home or self-care (01) ==
LOC: CT 12:30
PROVIDERS: PCP Family Medicine; Visit Provider Psychiatry & Neurology Neurology
DX: G44.1 Vascular headache, not elsewhere classified (principal); I77.74 Dissection of vertebral artery
CPT/HCPCS: 36415; 70496; 70498; 71046; 82565; 87631; 94761; 99283; Q9967

== ENCOUNTER 2024-04-30 17:35 | Emergency (ER) | payer OTHER, SELFPAY ==
--- OUTSIDE RECORDS SUMMARY | 2024-04-30 17:37 | XMS_ITS | Encounter Summary ---
Author Organization [facility] Address [address] [place] [address] Care Team Providers Care Registered Physical Therapist Name Role Phone MaGabe anderson Primary Care Provider [phone] Reason for Referral * (Routine) - Open Specialty Diagnoses / Procedures Referred By Contac t Referred To Contact Diagnoses Other vascular headache Vertebral artery dissection (HCC) Procedures CT HEAD W ANGIO Shadia Waterman MD [address] [place] [address] Phone: tel: fax: Referral ID Status Reason Start Date Expiration Date Visits Re quested Visits Authorized [id number] Open 04/16/2024 1 1 E MANUFACTURE SUPERVISOR * (Routine) - Open Specialty Diagnoses / Procedures Referred By Contac t Referred To Contact Diagnoses Other vascular headache Vertebral artery dissection (HCC) Procedures CT ANGIO NECK Shdaia Waterman MD [address] [place] [address] [address] [place] [address] Phone: tel: fax: Referral ID Status Reason Start Date Expiration Date Visits Re quested Visits Authorized [id number] Open 04/16/2024 1 1 E MANUFACTURE SUPERVISOR * Other (Routine) - Open Specialty Diagnoses / Procedures Referred By Contac t Referred To Contact Diagnoses Other vascular headache Vertebral artery dissection (HCC) Procedures [facility] APPOINTMENT Shadia Waterman MD [address] [place] [address] [address] [place] [address] Phone: tel: fax: Referral ID Status Reason Start Date Expiration Date Visits Re quested Visits Authorized [id number] Open 07/15/2024 1 1 E MANUFACTURE SUPERVISOR Reason for Visit * Reason Comments Follow up * Other (Routine) - Open Specialty Diagnoses / Procedures Referred By Contomero t Referred To Contact Diagnoses Other vascular headache Procedures [facility] APPOINTMENT Shadia Waterman MD [address] [place] [address] Phone: tel: fax: Referral ID Status Reason Start Date Expiration Date Visits Re quested Visits Authorized [id number] Open 04/19/2024 1 1 Encounter Details Date Type Department Care Team (Late st Contact Info) Description 04/16/2024 9:30 AM FENCE MANUFACTURE SUPERVISOR Office Visit [facility] [address] [place] [address] Shadia Waterman MD [address] [place] [address] [address] [place] [address] Vertebral artery dissection (HCC) (Primary Dx); Other vascular headache Social History Tobacco Use Types Packs/Day Years Used Date Smoking Tobacco: Never Smokeless Tobacco: Never Alcohol Use Standard Drinks/Week Comments Not Asked 0 (1 standard drink = 0.6 oz pur e alcohol) None since 2018 Sex and Gender Information Value Date Recorded Sex Assigned at Not on file Legal Sex Male 2:26 PM FENCE MANUFACTURE SUPERVISOR Gender Identity Not on file Sexual Orientation Not on file documented as of this encounter Progress Notes * Shadia Waterman MD - 04/16/2024 9:30 AM CST Images from the original note were not included. [facility] [address] [place] [address], [address] [place] [address] Neurology Follow-up Assessment and Plan: # Right temporal headache-resolved Patient had a new onset right sided headache near the congregation. Biopsy was negative for GCA though hewas on steroids at the time of the biopsy. MRI brain was unremarkable. He was seen by ophthalmologywhere his eye exam was unrevealing but they will retest down the road. Laboratory markers were retested at last visit and were normal again. He does not quite fit with GCA clinically due to lack of jaw claudication and symptoms concerning for PMR, however decided to continue treating with steroids.He has now completed steroids and had symptom abort weeks ago. Other differentials include cluster headache given his endorsement of eye swelling and worsening with sneezing, coughing, and bending forward which can all worsen cluster headaches. Prednisone also does help cluster headaches as well. In his workup his MRI brain was negative for any structural abnormality and MRA negative for any aneurysms or evidence of arteritis, but question a right vertebral artery dissection versus artifact. Tashi rutledge recheck this with a CTA head and neck. -CTA head and neck -ESR and CRP labs were negative -Biopsy negative -No further treatment at this time, patient has had improvement of symptoms. If symptoms return, would recommend reinitiating of steroids. The differential diagnosis, prognosis, pathophysiology, etiology, and treatment options, side effects and complications and the relative benefits of treatment options were discussed in detail with the patient and family. I will see the patient back in follow up in 3 months. If I can provide any further information or answer any questions in the interim, the patient or family is welcome to contact me. This note was created with the assistance of voice recognition software. Despite proofreading, occasional wrong word or 'yxdca-i-qwan' substitutions may have occurred due to limitations of the software. Please read the chart carefully and recognize, using context, where these substitutions may haveoccurred. Shadia Waterman MD Fellowship trained Multiple Sclerosis and Neuroimmunology specialist [facility] Chief Complaint: No chief complaint on file. History of Present Illness: HPI: Jai Laird [...] performed. MRI was ordered for his brain. When first seen, he had 3 days of steroids that has helped thisheadache. The pain was an intense ache. Mostly in the AM. He feels like he has to pop his jaw open.He did not get migraines or headaches in the past. He notes bending forward, laughing, sneezing, orcoughing worsening his headache. Notes his vision has been worsening for the last 4 months in the right eye. Denies any jaw claudication. No fevers. He felt like his ear was on fire just with the headaches starting. He notes shoulder and neck pain, but this was following an injury on the job complicated by a rotator cuff and labrum injury of the right shoulder back in 2020. When last seen his headaches had improved to 2/10 pain. Headache was alleviated by ibuprofen and tylenol, has been improving on steroids as well. There is not an aura. Denies associated nausea, photophobia, and phonophobia. Some worsening with laying down and bending forward. Denies tinnitus. He notes his right eye was alittle more swollen upon one of the earlier days. But no eye redness or tearing. Sleeps about 6 hours per day. He was referred to ophthalmology as well, reportedly exam was unrevealing for an entire ocular issue but they were going to retest later on. MRI brain was negative for any structural abnormality, MRA brain negative for any aneurysm but question of a artifact versus right vertebral dissection noted. Patient is taking a baby aspirin daily. He reports he was feeling well but does feel more foggy today with some foggy right eye vision. He took his last dose of prednisone yesterday. He does have some tenderness around the surgery site but otherwise 0-10 pain. Past Medical History: Past Medical History: Diagnosis [...] Resource Strain: Low Risk (01/05/2024) Received from [employer] Resource Strain Difficulty of Paying Living Expenses: 3 Difficulty of Paying Living Expenses: Not on file Food Insecurity: No Food Insecurity (01/05/2024) Received from [employer] Food Insecurity Do you worry your food will run out before you are able to buy more?: 1 Transportation Needs: No Transportation Needs (01/05/2024) Received from [employer] Transportation Needs Does lack of transportation keep you from medical appointments?: 1 Does lack of transportation keep you from work, meetings or getting things that you need?: 1 Physical Activity: Not on file Stress: Not on file Social Connections: Socially Integrated (01/05/2024) [facility] Social Connections Do you often feel lonely or isolated from those around you?: 0 Intimate Partner Violence: Not on file Housing Stability: Low Risk (01/05/2024) [facility] Housing Stability What is your housing situation today?: 1 Review of System: ROS: Pertinent positive and negative systems are described in the HPI; the remainder of the 14 systems are negative. Physical Exam: General: no acute distress, well appearing CV: No LE edema Pulm: normal work of breathing MSK: no joint swelling or deformity. No tenderness at this time to the right congregation. Integument: no visible rash Psych: appropriate affect Neurological examination: Mental Status: The patient is alert and oriented. Recent memory is normal. The person is attentive with normal concentration. Language is fluent. Speech is of normal maria t and character. The speechis nondysarthric. Fund of knowledge is normal. Cranial Nerves: Visual meeks full to confrontation, no visual extinction. Pupils equal round and reactive to light, no APD. OD 20/20 and OS 20/20 -2 near card. Pursuits without saccadic intrusions and full in all directions. No gaze deviation, dysconjugate gaze, or gaze palsy, no [...] 5/5 in upper and lower extremities bilaterally. Sensory: Romberg negative. Cerebellar: The cerebellar examination is normal to finger to nose test. Musculoskeletal system and Gait: The gait is normal based and station. No ataxia. Data: Labs reviewed 03/07/2024: ESR 2, CRP less than 3, 03/15/2024: ESR 6, CRP 21, WBC 7.4, normal BMP aside from glucose of 115 03/21/24: ESR 3, CRP <1 11/25/24 A) RIGHT TEMPORAL ARTERY, BIOPSY: Muscular artery, negative for arteritis IMAGING: CT head w/o con 03/07/24 Impression: Minimal age-related and chronic small-vessel disease changes of the brain without evidence of acuteintracranial abnormality MRA head 03/22/24 MRI brain w/o con 03/22/24 [] I have personally reviewed images and my impression is above. [x] Images not available for personal review. Report documented above. Shadia Waterman MD MIPS none TIME: I spent 32 minutes on the date of the encounter [...] and/or procedures, and documenting in the chart. E MANUFACTURE SUPERVISOR documented in this encounter Plan of Treatment Scheduled Orders Name Type Priority Associated Diagnoses Orde r Schedule CT ANGIO NECK Imaging Routine Other vascular headache Vertebral artery dissection (HCC) Expected: 04/16/2024, Expires: 06/17/2025 CT HEAD W ANGIO Imaging Routine Other vascular headache Vertebral artery dissection (HCC) Expected: 04/16/2024, Expires: 06/17/2025 documented as of this encounter Visit Diagnoses Diagnosis Vertebral artery dissection (HCC)- Primary Dissection of vertebral artery Other vascular headache documented in this encounter Care Teams Registered Physical Therapist Relationship Specialty Start Date End Date Gabe Ma [address] [place] [address] PCP - General Family Medicine 03/21/24 documented as of this encounter
--- OUTSIDE RECORDS SUMMARY | 2024-04-30 17:37 | XMS_ITS | Clinical Summary ---
Author Organization [facility] Address [address] [place] [address] Care Team Providers Care Welder Setter Resistance Machine Name Role Phone Gabe Ma Primary Care Provider [phone] Allergies No known active allergies Medications albuterol [...] mouth once daily. 14 tablet 4 Active cyclobenzaprine (FLEXERIL) 5 mg oral tablet Take 1 tablet (5 mg) by mouth. Active traMADoL (ULTRAM) 50 mg oral tablet Take 1 tablet (50 mg) by mouth every 6 (six) hours as needed. Active predniSONE (DELTASONE) 20 mg oral tablet Take 2 tablets (40 mg) by mouth Daily. 4 04/08/20 24 Active Problems Problem Noted Date Diagnosed Date [...] Encounters Date Type Department Care Team Description 04/16/2024 9:30 AM LEAD MANUFACTURING ENGINEER Office Visit [facility] [address] [place] [address] Shadia Waterman MD Vertebral artery dissection (HCC) (Primary Dx); Other vascular headache 03/21/2024 10:00 AM LEAD MANUFACTURING ENGINEER Office Visit [facility] [address] [place] [address] Shadia Waterman MD Other vascular headache (Primary [...] on file Legal Sex Male 2:26 PM LEAD MANUFACTURING ENGINEER Gender Identity Not on file Sexual Orientation [...] - WESTERGREN ([facility]) Routine 03/21/2024 10:00 AM LEAD MANUFACTURING ENGINEER Other vascular headache C-REACTIVE PROTEIN, QUANT ([facility]) Routine 03/21/2024 10:00 AM LEAD MANUFACTURING ENGINEER Other vascular headache from Last 3 Months Results * C-REACTIVE PROTEIN, QUANT ([facility]) (03/21/2024 10:00 AM LEAD MANUFACTURING ENGINEER) C-Reactive Protein Quantitave ([facility]) <1 0 - 10 mg/L [facility] 1 Blood 03/21/2024 10:0 0 AM LEAD MANUFACTURING ENGINEER 03/20/2024 11:00 PM LEAD MANUFACTURING ENGINEER Narrative [facility] 1 - 03/22/2024 9:11 AM LEAD MANUFACTURING ENGINEER Performed at: - [facility] [address] [id number] Engineering Project Designer: Hansel Swann MD, Phone: [phone] us Shadia Waterman MD [facility] ORDERABLES Final Res ult Performing Organization Address [facility] de Phone Number [facility] 1 * SEDIMENTATION RATE - WESTERGREN ([facility]) (03/21/2024 10:00 AM LEAD MANUFACTURING ENGINEER) Sed Rate- Westergren ([facility]) 3 0 - 30 mm/hr [facility] 1 Blood 03/21/2024 10:0 0 AM LEAD MANUFACTURING ENGINEER 03/20/2024 11:00 PM LEAD MANUFACTURING ENGINEER Narrative [facility] 1 - 03/22/2024 9:11 AM LEAD MANUFACTURING ENGINEER Performed at: [facility] [id number] Engineering Project Designer: Hansel Swann MD, Phone: [phone] us Shadia Waterman MD [facility] ORDERABLES Final Res ult [facility] 1 from Last 3 Months Insurance [facility] [employer] Care Teams Welder Setter Resistance Machine Relationship Specialty Start Date End Date Gabe Ma [address] [place] [address] PCP - General Family Medicine 03/21/24
--- OUTSIDE RECORDS SUMMARY | 2024-04-30 17:37 | XMS_ITS | Clinical Summary ---
Author Organization [facility] Address [address] [place] [address] Care Team Providers Care Road Crew Member Name Role Phone Provider, Not In System Primary Care Provider Un available Source Comments This disclosure is being made pursuant to the [employer] program and maynot contain all information available regarding this patient.[facility] Allergies No known active allergies Medications ALBUTEROL IN Inhale into the lungs. Active loratadine (CLARITIN) 10 MG tablet Take 10 mg by mouth daily as needed for Allergies. Active omeprazole (PRILOSEC) 20 MG capsule Take 20 mg by mouth every morning before breakfast. Active traMADol (ULTRAM) 50 MG tablet Take 50 mg by mouth every 6 (six) hours as needed for Pain. Takes at HS Active cyclobenzaprine (FLEXERIL) 5 MG tablet Take 5 mg by mouth 3 (three) times daily as needed for Muscle spasms. Takes at HS Active Fluticasone Furoate-Vilante rol (BREO ELLIPTA IN) Inhale into the lungs. Active HYDROcodone-loc taminophen (NORCO) 5-325 MG per tablet Take 1 tablet by mouth every 4 (four) hours as needed for Pain. 15 tablet 03/30/2018 Active naproxen (NAPROSYN) 500 MG tablet Take 1 tablet by mouth 2 (two) times daily with meals. 30 tablet 03/30/2018 Active Social History Tobacco Use Types Packs/Day Years Used Date Smoking Tobacco: Never Smokeless Tobacco: Never Tobacco Cessation:Counseling Given: No Alcohol Use Standard Drinks/Week Comments Yes 28 (1 standard drink = 0.6 oz pu re alcohol) Sex and Gender Information Value Date Recorded Sex Assigned at Not on file Legal Sex Male 8:56 AM CHIN STRAP MAKER Gender Identity Not on file Sexual Orientation Not on file Last Filed Vital Signs Vital Sign Reading Time Taken Comments Blood Pressure 159/109 03/30/2018 9:03 AM CHIN STRAP MAKER Pulse 93 03/30/2018 9:03 AM CHIN STRAP MAKER Temperature 36.7 C (98 F) 03/30/2018 9:03 AM CHIN STRAP MAKER Respiratory Rate 16 03/30/2018 9:03 AM CHIN STRAP MAKER Oxygen Saturation 97% 03/30/2018 9:03 AM CHIN STRAP MAKER Inhaled Oxygen Concentration - - Weight 82.6 kg (182 lb) 03/30/2018 9:03 AM CHIN STRAP MAKER Height 172.7 cm (5' 8) 03/30/2018 9:03 AM CHIN STRAP MAKER Body Mass Index 27.67 03/30/2018 9:03 AM CHIN STRAP MAKER Plan of Treatment Health Maintenance Due Date Last Done Comments CT Colonography 1959 Colonoscopy 1959 Colorectal Cancer Screening 1959 Fecal DNA Test 1959 Lab-Cholesterol Screening 1959 Lab-Hepatitis C Screening 1959 Sigmoidoscopy 1959 Annual Wellness Visit 11/11/1977 Tetanus/Pertussis Vaccine Teen/Adult (1 - Tdap) 11/11/1978 FOBT/FIT 1979 Zoster (Shingles) Vaccine 50 + (1 of 2) 11/11/2009 COVID-19 Vaccine ( - 2023-2 5 season) 2023 Influenza Vaccine (#1) 2023 RSV Adult (1 - 1-dose 75+ series) 11/11/2034 HIB Vaccine Aged Out No longer eligi ble based on patient's age to complete this topic HPV Vaccine (F:9-26YO,M: 9-22) Aged Out No longer eligible based on patient's age to complete this topic Hepatitis A Vaccine Aged Out No longe r eligible based on patient's age to complete this topic IPV Vaccine Aged Out No longer eligi ble based on patient's age to complete this topic Meningococcal Conjugate Vaccine Aged Out No longer eligible based on patient's age to complete this topic Pneumococcal Vaccines 0-49 yo Aged Out No longer eligible based on patient's age to complete this topic RSV < 20 Months Aged Out No longer el igible based on patient's age to complete this topic Insurance [employer] [id number] Member Relationship Specialty Start Date End Date Provider, Not In System PCP - General 03/30/18
--- OUTSIDE RECORDS SUMMARY | 2024-04-30 17:37 | XMS_ITS | Referral Summary ---
Author Organization [facility] Address [address] [place] [address] Care Team Providers Care Rivet Heater Name Role Phone Gabe Ma Franklin Primary Care Provider Encounters Date Type Department Care Team Description 04/16/2024 9:30 AM EMAIL MARKETER Office Visit [address] [place] [phone] Shadia Waterman MD Vertebral artery dissection (HCC) (Primary Dx); Other vascular headache 03/21/2024 10:00 AM EMAIL MARKETER Office Visit [address] [place] [address] Shadia Waterman MD Other vascular headache (Primary [...] mg) by mouth once daily. 14 tablet Active cyclobenzaprine (FLEXERIL) 5 mg oral tablet [...] on file Legal Sex Male 2:26 PM EMAIL MARKETER Gender Identity Not on file Sexual Orientation Not on file Plan of Treatment Not on file Procedures Procedure Name Priority Date/Time Associated Diagnosis Comments SEDIMENTATION RATE - WESTERGREN ([facility]) Routine 03/21/2024 10:00 AM EMAIL MARKETER Other vascular headache C-REACTIVE PROTEIN, QUANT ([facility]) Routine 03/21/2024 10:00 AM EMAIL MARKETER Other vascular headache from Last 3 Months Results * C-REACTIVE PROTEIN, QUANT ([facility]) (03/21/2024 10:00 AM EMAIL MARKETER) C-Reactive Protein Quantitave ([facility]) <1 0 - 10 mg/L [facility] 1 Blood 03/21/2024 10:0 0 AM EMAIL MARKETER 03/20/2024 11:00 PM EMAIL MARKETER Narrative [facility] 1 - 03/22/2024 9:11 AM EMAIL MARKETER Performed at: - [facility] [address] [id number] Media Marketing Specialist: Hansel Swann MD, Phone: [phone] Shadia Waterman MD [facility] ORDERABLES Final Res ult Performing Organization Address City/[facility] Co de Phone Number [facility] 1 * SEDIMENTATION RATE - WESTERGREN ([facility]) (03/21/2024 10:00 AM EMAIL MARKETER) Sed Rate- Westergren ([facility]) 3 0 - 30 mm/hr [facility] 1 Blood 03/21/2024 10:0 0 AM EMAIL MARKETER 03/20/2024 11:00 PM EMAIL MARKETER Narrative [facility] 1 - 03/22/2024 9:11 AM EMAIL MARKETER Performed at: - [facility] [id number] Media Marketing Specialist: Hansel Swann MD, Phone: [phone] Shadia Waterman MD [facility] ORDERABLES Final Res ult Performing Organization Address City/[facility] Co de Phone Number [facility] 1 from Last 3 Months Insurance [facility] COMMERCIAL Care Teams Rivet Heater Relationship Specialty Start Date End [place] [address] [place] [address] PCP - General Family Medicine 03/21/24
--- OUTSIDE RECORDS SUMMARY | 2024-04-30 17:37 | XMS_ITS | Data Portability ---
Author Organization [facility] Address [address] [place] [address] Care Team Providers Care Sheet Rock Nailer Name Role Phone ARLEN SILVESTRE Primary Care Provider [phone] Assessment No assessment recorded. Plan of Treatment Reminders Order Date Submit Date Provider Last Modified By Organization Details Last Modified Time Details Appointments [facility] 10 2024 03:00P M Van Garnica MD Not available Not available Not available Lab urinalys is, dipstick 2023 024 [email or web address] [facility], [address], [place], [address], 03/08/2024 12:41:14 culture, urine 2023 024 [facility], [address], [place], [address], 03/10/2024 09:37:24 Referral None recorded . Procedures cystosco py (PROC) 2023 024 [email or web address] Not available 02/27/2024 12:07:50 Surgeries None recorded . Imaging None recorded . Medication Orders solifena nazia 10 mg tablet 2023 024 [email or web address] [id number], [address] [place], [place], [id number], 10/17/2023 10:13:14 Myrbetri q 50 mg tablet,e xtended release 2023 024 [email or web address] [id number], [address] [facility], [place], [place], [id number], 02/26/2024 10:23:58 Botox 100 unit injectio n 2023 024 [email or web address] Not available 03/15/2024 15:09:02 Patient TargetsNo targets [...] for provi timothy revie w. Not Available [facility] [address], [place], [address], 03/10/2024 09:37:24 03/08/20 24 03/08/2024 urina lysis , dipst ick BLOOD Negati ve Not Available [facility] [address], [place], [address], 03/08/2024 12:39:43 03/08/20 24 03/08/2024 urina lysis , dipst ick NITRITES Negati ve Not Available [facility] [address], [place], [address], 03/08/2024 12:39:43 03/08/20 24 03/08/2024 urina lysis , dipst ick LEUKOCYTES Negati ve Not Available [facility] [address], [place], [address], 03/08/2024 12:39:43 Result Notes None recorded. Problems Name Problem SNOMED Code Status Onset Date Resolution Date Notes Provider Name and Address Organization Details Recorded Time Benign prostatic hyperplasia 256202906 Active [address] [facility] 14:05:21 Problem Notes None recorded. Procedures Surgical History Date Name Laterality Status Provider Name and Address Organization Details Recorded Time 07/06/19 25 Bladder Scan active Maritza Sales [facility] 04/25/2024 15:27:19 03/15/20 24 Cystoscopy with Botox Injections completed Maritza Sales [facility] 03/15/2024 13:27:39 03/08/20 24 Urine Culture completed Tracy Cruz [facility] 03/08/2024 12:39:08 03/08/20 24 Urinalysis completed Tracy Cruz [facility] 03/08/2024 12:39:04 02/26/20 24 COMPLEX VISIT completed Van Garnica MD [address] [place] [address],[address], [address], [facility] 02/25/2024 23:10:20 02/26/20 24 Bladder Scan completed Maritza Sales [facility] 02/26/2024 10:22:18 09/15/19 24 COMPLEX VISIT completed Van Garnica MD [address] [place] [address],[address], [address], [facility] 09/15/2023 16:03:47 09/15/19 24 Bladder Scan completed Floresita Hampton [facility] 09/15/2023 15:13:01 03/03/20 23 Bladder Scan completed Van Garnica MD [address] [place] [address],[address], [place], [address], [facility] 03/03/2023 16:02:33 11/25/19 23 UroCuff completed Quyen Humphrey [facility] 11/24/2022 16:32:40 11/25/19 23 Bladder Scan completed Quyen Humphrey [facility] 11/24/2022 16:31:14 08/02/19 23 Bladder Scan completed Maritza Arroyo [facility] 08/01/2022 10:06:51 06/22/19 23 Fill and Pull/Voiding Trial/TOV completed Radha Hansonen [facility] 06/22/2022 14:06:25 03/23/20 Bladder Scan completed Van Garnica MD [address] [place] [address],[address], [place], [address], [facility] 03/23/2022 15:58:09 11/27/19 22 Cystoscopy- male completed Van Garnica MD [address] [place] [address],[address], [place], [address], [facility] 11/26/2021 14:21:20 11/27/19 TRUS- Volume size only completed Van Garnica MD [address] [place] [address],[address], [place], [address], [facility] 11/26/2021 16:35:07 11/18/19 [address] Gavin Schmidt [facility] 11/17/2021 11:28:52 11/18/19 22 Bladder Scan completed Gavin Schmidt [facility] 11/17/2021 11:23:35 procedure on knee completed Van Garnica MD [address] [place] [address],[address], [place], [address], [facility] 03/23/2022 15:58:19 procedure on ankle completed Van Garnica MD [address] [place] [address],[address], [place], [address], [facility] 03/23/2022 15:58:25 tonsillectomy completed Van harris MD [address] [place] [address],[address], [place], [address], [facility] 03/23/2022 15:58:31 procedure on elbow completed Maritza Sales [facility] 02/26/2024 10:24:51 Shoulder joint surgery completed Van Garnica MD [address] [place] [address],[address], [place], [address], [facility] 03/23/2022 15:58:51 Imaging Results None [...] Updated DateTime 03/03/2023 170.18 cm 28.2 kg/m2 88655.63 g Van Garnica MD [address], [address], [facility] 03/03/2023 16:01:55 Date Recorded Body height Body mass index (BMI) Body weight Provider Name and Address Organization Details Last Updated DateTime 09/15/2023 170.18 cm 28.2 kg/m2 [address]5424.[address] [facility] 09/15/2023 14:59:43 Date Recorded Body height Body mass index (BMI) Body weight Provider Name and Address Organization Details Last Updated DateTime 02/26/2024 170.18 cm 28.2 kg/m2 [address]6823.[address] [facility] 02/26/2024 10:22:57 Social History Question Answer Notes LastModified by Organizat ion Details LastModified Time Tobacco Smoking Status Never Smoker Van Garnica MD [address] [facility] [address], [place], [address], [facility] 03/23/2022 15:58:00 What Is Your Level Of Alcohol Consumption? None Information not available 03/23/2022 What Is Your Level Of Caffeine Consumption? Moderate Information not available 03/23/2022 Are You Currently Employed? Yes Information not available 11/25/2022 Recreational Drug Use No Information not available 11/25/2022 What Was The Date Of Your Most Recent Tobacco Screening? 02/26/2024 [email or web address] Information not available 02/26/2024 What Is Your [...] Response Diabetes N Sexually Transmitted Infection N Other N Bleeding Disorder N High Blood Pressure N Kidney Stones N High Cholesterol N GERD/Acid Reflux Y Heart Disease N Cancer N Lung Disease N Depression N Immunizations Vaccine Type Date Status Note Provider Nam e and Address Organization Details Recorded Time tetanus toxoid, unspecified formulation 04/04/[address] [facility] 02/23/2023 17:12:00 Influenza, split virus, trivalent, PF 04/28/[address] [facility] 02/23/2023 17:12:00 Influenza, split virus, quadrivalent, PF 01/30/[address] [facility] 02/23/2023 17:12:00 Past Encounters Encounter ID Performer Location Encounter Start Date Encounter Closed Date Diagnosis/Indication Diagnosis SNOMED-CT Code Diagnosis ICD10 Code [id number] Van Garnica MD [facility] [address] [place], [place] [address] 11/17/2021 09:50:51 11/19/2021 13:47:17 Benign prostatic hyperplasia with outflow obstruction 745296579 N40.1 [id number] MD FAUSTINO [facility] [address] [place], [place] [address] 11/26/2021 13:53:58 11/29/2021 12:24:49 Increased frequency of urination 973645694 R35.0 Slowing of urinary stream 67781354 R39.12 Urgent rena jose de jesus to urinate 94319368 R39.15 [id number] MD FAUSTINO [facility] [address] [place] [address] 03/23/2022 15:48:55 03/28/2022 11:38:28 Increased frequency of urination 172341165 R35.0 Slowing of urinary stream 54693035 R39.12 Urgent rena jose de jesus to urinate 05210888 R39.15 [id number] Van Garnica MD [facility] [address] [place] [address] 06/22/2022 10:58:40 06/27/2022 11:51:03 Benign prostatic hyperplasia 105288979 N40.1 [id number] MD FAUSTINO [facility] [address] [place], [place] [address] 08/01/2022 09:54:25 08/03/2022 15:28:36 Increased frequency of urination 691805713 R35.0 Slowing of urinary stream 01427814 R39.12 Urgent rena jose de jesus to urinate 72534324 R39.15 [id number] Van Garnica MD [facility] [address] [place] [address] 11/25/2022 15:49:48 12/05/2022 08:59:56 Increased frequency of urination 717010424 R35.0 Slowing of urinary stream 02615362 R39.12 Urgent rena jose de jesus to urinate 58368358 R39.15 [id number] MD FAUSTINO [facility] [address] [place] [address] 11/24/2022 15:57:30 12/01/2022 12:02:38 Increased frequency of urination 752882225 R35.0 [id number] Van Garnica MD [facility] [address] [place] [address] 03/03/2023 15:47:36 03/08/2023 16:03:36 Increased frequency of urination 786033185 R35.0 Slowing of urinary stream 74092198 R39.12 Urgent rena jose de jesus to urinate 39575649 R39.15 [id number] Van Garnica MD [facility] [address] [place] [address] 09/15/2023 14:55:32 09/18/2023 09:50:36 Increased frequency of urination 997142398 R35.0 Slowing of urinary stream 77673090 R39.12 Urgent rena jose de jesus to urinate 01608079 R39.15 [id number] Van Garnica MD [facility] [address] [place] [address] 02/26/2024 10:10:25 02/27/2024 09:22:31 Increased frequency of urination 686497813 R35.0 Slowing of urinary stream 49970574 R39.12 Urgent rena jose de jesus to urinate 28672128 R39.15 [id number] Van Garnica MD [facility] [address] [place], [place] [address] 03/08/2024 12:12:13 03/11/2024 16:25:19 Urgent desire to urinate [id number] R39.15 [id number] Mary Stewart [facility] [address] [place] [address] 03/15/2024 11:46:01 03/19/2024 16:55:19 Increased frequency of urination 843611760 R35.0 Slowing of urinary stream 79825911 R39.12 Urgent rena jose de jesus to urinate 52382050 R39.15 Health Concerns Section Related Observation LastModified by Organization Detai ls LastModified Time None Recorded Concern Status LastModified by Organization Details LastModified Time None Recorded Advance Directives Directive None Recorded Payers Encounter Date Sequence Insurance Name Policy Number Policy Jensen Covered Member ID Jensen Member ID Guarantor Name 03/03/2023 1 [id number] Jai Laird [id number] Jai Laird 09/15/2023 1 [facility] [id number] Jai Laird [id number] Jai Laird 02/26/2024 1 [facility] [id number] Jai Laird [id number] Jai Laird 03/08/2024 1 [facility] [id number] Jai Laird [id number] Jai Laird 03/15/2024 1 [facility] [id number] Jai Laird [id number] Jai Laird Notes Date Note Type Note Provider Name and Address Organization Details Recorded Time 03/03/2023 text/html 62-year-old lew mcneal who follows with me in our [place] [facility] for urinary frequency, urinary urgency, and [...] with less overall urgency. Van Garnica MD [address] [place] [address],[address], [place], [address], [facility] 03/03/2023 17:05:51 09/15/2023 text/html 62-year-old lew mcneal who follows with me in our [place] [facility] for urinary frequency, urinary urgency, and [...] others. Stopped all medication. Van Garnica MD [address] [facility],[address], [place], [address], [facility] 09/15/2023 16:04:13 02/26/2024 text/html 62-year-old lew mcneal who follows with me in our [place] [facility] for urinary frequency, urinary urgency, and [...] the anticholinergic (vision blurry). Van Garnica MD [address] [place] [address],[address], [place], [address], [facility] 02/26/2024 14:13:55 03/08/2024 text/html Pt presents to [facility] for UA/UC prior to Botox procedure next weekNurse visit completed by Tracy Juan RN. Van Garnica MD [address] [place] [address],[address], [place], [address], [facility] 03/08/2024 12:55:51 03/15/2024 text/html 62-year-old gent fredis who follows with me in our [place] [facility] for urinary frequency, urinary urgency, and [...] is botox 100 units [place] Hern[facility]dez - [facility] 03/15/2024 14:06:42
--- OUTSIDE RECORDS SUMMARY | 2024-04-30 17:37 | XMS_ITS | Encounter Summary ---
Author Organization [facility] Address [address] [place] [address] Care Team Providers Care Police Sergeant Name Role Phone MaGabe anderson Primary Care Provider [phone] Reason for Referral * Consultation (Urgent (within 2 weeks) ) - Open Specialty Diagnoses / Procedures Referred By Julee gallegos Referred To Contact Ophthalmology Diagnoses Other vascular headache Shadia Waterman MD [address] [place] [address] [address] [place] [address] Phone: tel: fax: Referral ID Status Reason Start Date Expiration Date V isits Requested Visits Authorized [id number] Open Specialty Services Required 03/21/2024 1 1 Comments Concern for blurred vision and GCA TRIC TRUCK OPERATOR * Other (Routine) - Open Specialty Diagnoses / Procedures Referred By Julee gallegos Referred To Contact Diagnoses Other vascular headache Procedures N NEUROLOGY APPOINTMENT Shadia Waterman MD [address] [place] [address] [address] [place] [address] Phone: tel: fax: Referral ID Status Reason Start Date Expiration Date Visits Re quested Visits Authorized [id number] Open 04/19/2024 1 1 TRIC TRUCK OPERATOR * (Routine) - Open Specialty Diagnoses / Procedures Referred By Julee gallegos Referred To Contact Diagnoses Other vascular headache Procedures MRA HEAD W/O CON Shadia Waterman MD [address] [place] [address] [address] [place] [address] Phone: tel: fax: Referral ID Status Reason Start Date Expiration Date Visits Re quested Visits Authorized [id number] Open 03/21/2024 1 1 TRIC TRUCK OPERATOR Reason for Visit * Reason Comments Consultation Encounter Details Date Type Department Care Team ([facility] st Contact Info) Description 03/21/2024 10:00 AM ELECTRIC TRUCK OPERATOR Office Visit [facility] - [facility] [address] [place] [address]. [address] [place] [id number] Shadia Waterman MD [address] [place] [address] [address] [place] [phone] Other vascular headache (Primary Dx) Social History Tobacco Use Types Packs/Day Years Used Date Smoking Tobacco: Never Smokeless Tobacco: Never Tobacco Cessation:Counseling Given: Not Answered Alcohol Use Standard Drinks/Week Comments Not Asked 0 (1 standard drink = 0.6 oz pur e alcohol) None since 2018 Sex and Gender Information Value Date Recorded Sex Assigned at Not on file Legal Sex Male 2:26 PM ELECTRIC TRUCK OPERATOR Gender Identity Not on file Sexual Orientation Not on file documented as of this encounter Patient Instructions * Patient Instructions* Shadia Waterman MD - 03/21/2024 10:00 AM ELECTRIC TRUCK OPERATOR [facility]: Call [phone] TRIC TRUCK OPERATOR TRIC TRUCK OPERATOR documented in this encounter Progress Notes * Shadia Waterman MD - 03/21/2024 10:00 AM CST Images from the original note were not included. [facility] [address] [place] [address], [address] [place] [address] Neurology Initial Note / Consultation Assessment and Plan: # Right temporal headache Patient has a new onset right sided headache near the hoahaoism. On the differential is GCA for which [...] software. Despite proofreading, occasional wrong word or '[id number]' substitutions may have occurred due to limitations of the software. Please read the chart carefully and recognize, using context, where these substitutions may haveoccurred. Shadia Waterman MD Fellowship trained Multiple Sclerosis and Neuroimmunology specialist [facility]rology Chief Complaint: Consultation History of [...] Resource Strain: Low Risk (01/05/2024) [facility] from [facility] Financial Resource Strain Difficulty of Paying Living Expenses: 3 Difficulty of Paying Living Expenses: Not on file Food Insecurity: No Food Insecurity (01/05/2024) [facility] Food Insecurity Do you worry your food will run out before you are able to buy more?: 1 Transportation Needs: No Transportation Needs (01/05/2024) Received from [facility] Transportation Needs Does lack of transportation keep you from medical appointments?: 1 Does lack of transportation keep you from work, meetings or getting things that you need?: 1 Physical Activity: Not on file Stress: Not on file Social Connections: Socially Integrated (01/05/2024) Received from [facility] Social Connections Do you often feel lonely or isolated from those around you?: 0 Intimate Partner Violence: Not on file Housing Stability: Low Risk (01/05/2024) Received from [facility] Housing Stability What is your housing situation today?: 1 Review of System: ROS: Pertinent positive and negative systems are described in the HPI; the remainder of the 14 systems are negative. Physical Exam: General: no acute distress, well appearing CV: No LE edema Pulm: normal work of breathing MSK: no joint swelling or deformity. No tenderness at this time to the right hoahaoism. Integument: no visible rash Psych: appropriate affect [...] and/or procedures, and documenting in the chart. TRIC TRUCK OPERATOR documented in this encounter Plan of Treatment [...] PROTEIN, QUANT ([facility]) Routine 03/21/2024 10:00 AM ELECTRIC TRUCK OPERATOR Other vascular headache SEDIMENTATION RATE - WESTERGREN ([facility]) Routine 03/21/2024 10:00 AM ELECTRIC TRUCK OPERATOR Other vascular headache documented in this encounter Results * SEDIMENTATION RATE - WESTERGREN ([facility]) (03/21/2024 10:00 AM ELECTRIC TRUCK OPERATOR) Sed Rate- Westergren ([facility]) 3 0 - 30 mm/hr [facility] 1 Blood 03/21/2024 10:0 0 AM ELECTRIC TRUCK OPERATOR 03/20/2024 11:00 PM ELECTRIC TRUCK OPERATOR Narrative [facility] 1 - 03/22/2024 9:11 AM ELECTRIC TRUCK OPERATOR Performed at: - [facility] [id number] Assistant Press Operator Offset: Hansel Swann MD, Phone: [phone] us Shadia Waterman MD [facility] ORDERABLES Final Res ult [facility] 1 * C-REACTIVE PROTEIN, QUANT ([facility]) (03/21/2024 10:00 AM ELECTRIC TRUCK OPERATOR) Pathologist [facility] C-Reactive Protein Quantitave ([facility]) <1 0 - 10 mg/L [facility] 1 Blood 03/21/2024 10:0 0 AM ELECTRIC TRUCK OPERATOR 03/20/2024 11:00 PM ELECTRIC TRUCK OPERATOR Narrative [facility] 1 - 03/22/2024 9:11 AM ELECTRIC TRUCK OPERATOR Performed at: - [facility] [id number] Assistant Press Operator Offset: Hansel Swann MD, Phone: [phone] us Shadia Waterman MD [facility] ORDERABLES Final Res ult [facility] 1 documented in this encounter Visit Diagnoses Diagnosis Other vascular headache- Primary documented in this encounter Care Teams Police Sergeant Relationship Specialty Start Date End Date Gabe Ma [address] [place] [address] PCP - General Family Medicine 03/21/24 documented as of this encounter
--- OUTSIDE RECORDS SUMMARY | 2024-04-30 17:38 | XMS_ITS | Clinical Summary ---
Author Organization [facility] Address [address] [place] [address] Care Team Providers Care Software Developer Intern Name Role Phone Ma Gabe Reid Primary Care Provider [phone] Allergies No known active allergies Medications albuterol [...] Comments Blood Pressure 126/82 06/20/2022 11:58 AM MANAGER INSTRUMENTATION Pulse 76 06/20/2022 11:58 AM MANAGER INSTRUMENTATION Temperature 36.7 C (98 F) 06/20/2022 11:58 AM MANAGER INSTRUMENTATION Respiratory Rate 16 06/20/2022 11:58 AM MANAGER INSTRUMENTATION Oxygen Saturation 93% 06/20/2022 11:58 AM MANAGER INSTRUMENTATION Inhaled Oxygen Concentration - - Weight 82.6 kg (182 lb) 06/20/2022 7:08 AM MANAGER INSTRUMENTATION Height 185.4 cm (6' 1) 06/20/2022 7:08 AM MANAGER INSTRUMENTATION Body Mass Index 24.01 06/20/2022 7:08 AM MANAGER INSTRUMENTATION Plan of Treatment Health Maintenance Due Date Last Done Comments ADVANCE CARE PLANNING 1959 ANNUAL REVIEW OF HM ORDERS 1959 CT COLONOGRAPHY 1959 FIT 1959 FLEX SIG 1959 GLUCOSE 1959 sDNA (Cologuard) 1959 YEARLY PREVENTIVE VISIT 11/11/1962 COLONOSCOPY 11/11/1969 COLORECTAL CANCER SCREENING 11/11/1969 HIV SCREENING 11/11/1974 HEPATITIS C SCREENING 11/11/1977 DTAP/TDAP/TD IMMUNIZATION (1 - Tdap) 11/11/1984 LIPID 1999 Pneumococcal Vaccine: 50+ Years (1 of 1 - PCV) 11/11/2009 ZOSTER IMMUNIZATION (1 of 2) 11/11/2009 PHQ-2 [...] age to complete this topic Care Teams Software Developer Intern Relationship Specialty Start Date End Date Gabe Ma [address] [place] [address] PCP - General Family Medicine 06/20/22
--- OUTSIDE RECORDS SUMMARY | 2024-04-30 17:38 | XMS_ITS | Referral Summary ---
Author Organization [facility] Address [address] [place] [address] Care Team Providers Care Wood Gang Sawyer Name Role Phone MaGabe anderson Primary Care Provider [phone] Allergies No known active allergies Medications albuterol [...] Comments Blood Pressure 126/82 06/20/2022 11:58 AM CORPORATION LAWYER Pulse 76 06/20/2022 11:58 AM CORPORATION LAWYER Temperature 36.7 C (98 F) 06/20/2022 11:58 AM CORPORATION LAWYER Respiratory Rate 16 06/20/2022 11:58 AM CORPORATION LAWYER Oxygen Saturation 93% 06/20/2022 11:58 AM CORPORATION LAWYER Inhaled Oxygen Concentration - - Weight 82.6 kg (182 lb) 06/20/2022 7:08 AM CORPORATION LAWYER Height 185.4 cm (6' 1) 06/20/2022 7:08 AM CORPORATION LAWYER Body Mass Index 24.01 06/20/2022 7:08 AM CORPORATION LAWYER Plan of Treatment Not on file Care Teams Wood Gang Sawyer Relationship Specialty Start Date End Date Gabe Ma [address] [place] [address] PCP - General Family Medicine 06/20/22
--- OUTSIDE RECORDS SUMMARY | 2024-04-30 17:38 | XMS_ITS | Clinical Summary ---
Author Organization [facility] Address [place], [place] [address] Care Team Providers Care Field Machinist Name Role Phone Gabe Ma MD Primary Care Provider Allergies No known active allergies Medications loratadine (CLARITIN) 10 mg tablet Take 1 tablet by mouth once daily. 0 01/12/20 16 Active omeprazole (PRILOSEC-OTC) 20 mg tabletIndicatio ns:Chronic GERD Take 1 tablet by mouth once daily. 0 08/27/19 17 Active aspirin chewable 81 mg chewable tablet Take 1 tablet by mouth once daily with a meal. 0 07/06/19 19 Active multivit-minera ls/folic acid (CENTRUM ADULT 50 PLUS ORAL) Take by mouth. A ctive durable medical equipment (DME)Indication s:Numbness and tingling in left hand QUICKFIT WRIST II, UNIV, LT 04/14/20 23 Active albuterol HFA (PRO-AIR; VENTOLIN; PROVENTIL) 90 mcg/actuation inhalerIndicati ons:COVID-19 virus infection,Exace rbation of asthma, unspecified asthma severity, unspecified whether persistent Inhale 1-2 Puffs by mouth every 4 hours if needed for Shortness Of Breath. 1 Each 06/06/19 24 Active tolterodine (DETROL) 1 mg tablet Take 2 mg by mouth two times daily. Active HYDROcodone-loc taminophen (5-325 mg/tablet)Indic ations:Aftercar e following surgery Take 1 Tablet by mouth every 4 hours if needed for Pain (Severe pain). Max acetaminophen dose: 4000 mg in 24 hrs. 12 Tablet 01/09/20 24 Active predniSONE (DELTASONE) 20 mg tabletIndicatio ns:Temporal headache Take 2 Tablets (40 mg) by mouth once daily for 21 days. 42 Tablet 03/18/20 24 024 Active Problems Problem Noted Date Diagnosed Date [...] Encounters Date Type Department Care Team Description 04/30/2024 Telephone [facility] [address] [facility] [address] Gabe Ma MD Appointment Request (Cough and cold symptoms) 03/26/2024 Lab Requisition [facility] [phone] Michelle Glasgow MD 03/25/2024 Orders Only [facility] Scanner 1 scan: (1-Ord) [facility], RT TEMPORAL ARTERY BX, 03/25/2024 03/25/2024 Orders Only [facility] [address] [facility] [place] [address] Gonzalez Blount MD 1 scan: (1-Ord) [facility], HEAD/BRAIN WO CONTRAST, 03/22/2024 03/22/2024 Orders Only [facility] Scanner 1 scan: (1-Ord) [facility], MR ANGIO HEAD WO CON, 03/22/2024 03/20/2024 10:45 AM LOAN REPRESENTATIVE Office Visit [facility] [address] [place] [address] Michelle Glasgow MD Consult (Right Temporal artery biopsy referred by Dr. Blount) 03/20/2024 Travel 03/19/2024 Telephone [facility] [address] [place] [address] Gonzalez Blount MD new order needed 03/18/2024 Telephone [facility] [address] [place] [address] Gonzalez Blount MD 03/15/2024 3:05 PM LOAN REPRESENTATIVE Office Visit [facility] [address] [place] [address] Gonzalez Blount MD Headache (waking up at night with the pain ) 03/15/2024 9:00 AM LOAN REPRESENTATIVE Office Visit [facility] [address] [facility] [address] [place] [address] Joe Real MD Recheck (Left wrist pain) 03/15/2024 Orders Only [facility] Scanner 1 scan: (1-Ord) HETAL UROLOGY, CYSTOSCOPY W BOTOX INJ, 03/15/2024 03/15/2024 Travel 03/07/2024 2:30 PM LOAN REPRESENTATIVE Ancillary Procedure [facility] [address] [place] [address] 03/07/2024 1:15 PM LOAN REPRESENTATIVE Office Visit [facility] [address] [place] [address] Patsy Valencia PA Headache 03/07/2024 Travel 03/07/2024 Nurse Triage [facility] [address] [place] [address] Patsy Valencia PA Headache 03/07/2024 Telephone [facility] [address] [place] [address] Patsy Valencia PA Headache from Last 3 Months Immunizations Name Administration [...] 0.6 oz pu re alcohol) quit 10/[address] [facility] Utilities Answer Date Recorded Do you have trouble paying f or utilities (for example, heat, electricity, water, phone)? Yes 01/05/2024 PHQ-2 Answer Date Recorded PHQ-2 TOTAL SCORE [...] at Not on file Legal Sex Male 7:21 AM LOAN REPRESENTATIVE Gender Identity Not on file Sexual Orientation Not on file Obstetrics History Last Filed Vital Signs Vital Sign Reading Time Taken Comments Blood Pressure 137/81 03/20/2024 10:46 AM LOAN REPRESENTATIVE Pulse 67 03/20/2024 10:46 AM LOAN REPRESENTATIVE Temperature 36.8 C (98.2 F) 03/07/2024 1:11 PM LOAN REPRESENTATIVE Respiratory Rate 18 09/01/2021 9:10 AM CDT Oxygen Saturation 97% 03/20/2024 10:46 AM LOAN REPRESENTATIVE Inhaled Oxygen Concentration - - Weight 85.3 kg (188 lb 1.6 oz) 03/20/2024 10:46 AM LOAN REPRESENTATIVE Height 170.2 cm (5' 7) 01/05/2024 3:52 PM CDT Body Mass Index 29.46 01/05/2024 3:52 PM CDT Plan of Treatment Upcoming Encounters Date Type Department Care Team (Late st Contact Info) Description 06/20/2024 3:15 PM LOAN REPRESENTATIVE Office Visit [facility] [place] [address] [employer] [employer] [address] [place] [address] Joe Real MD [address] [employer] [employer] [address] [place] [address] Health Maintenance Due Date Last Done Comments Tdap 11/11/1970 Pneumococcal series for age 50+ (1 of 1 - PCV) 11/11/2009 Zoster (shingles) series for age 50+ (1 of 2) 11/11/2009 RSV vaccine for adults or (1 - Risk 60-74 years 1-dose series) 2019 Depression screening for age 12+ 11/06/2020 11/07/2019, 01/30/2018, 08/26/2016, Additional history exists COVID-19 vaccine series ( - season) 2023 Influenza for age 50-64 12/31/2023 01/30/2018 Lipids for age 45-75 11/06/2024 11/07/2019, 07/20/2018, 08/25/2015 BMI (ht and wt on same day) for age 18+ 01/04/2025 01/05/2024, 06/13/2022, 03/23/2022, Additional history exists Tetanus booster 04/05/2026 04/05/2016 (Comp leted outside of [facility]) Colonoscopy through age 75 12/26/202812/26, 12/26/2018, 12/26/2018, Additional history exists HIV for age 15-65 Completed 08/06/2018 Hepatitis C screening for ag e 18-79 Completed 08/06/2018, 08/25/2015 Procedures Procedure Name Priority Date/Time Associated Diagnosis Comments LAB TRACKING EVENT Routine 03/25/2024 12 :43 PM LOAN REPRESENTATIVE PATH TISSUE EXAM Routine 03/25/2024 12:4 3 PM LOAN REPRESENTATIVE SCAN-OPERATIVE/PROCED URE REPORT 03/25/2024 12:00 AM LOAN REPRESENTATIVE SCAN-ANGIOGRAM 03/22/2024 12:00 AM LOAN REPRESENTATIVE MR HEAD BRAIN WO Routine 03/22/2024 12:0 0 AM LOAN REPRESENTATIVE Temporal headache Acute nonintractable headache, unspecified headache type C-REACTIVE PROTEIN Routine 03/15/2024 3: 58 PM LOAN REPRESENTATIVE Acute nonintractable headache, unspecified headache type Temporal headache SEDIMENTATION RATE Routine 03/15/2024 3: 58 PM LOAN REPRESENTATIVE Acute nonintractable headache, unspecified headache type Temporal headache CBC WITH AUTO DIFFERENTIAL Routine 03/15/2024 3:58 PM LOAN REPRESENTATIVE Acute nonintractable headache, unspecified headache type Temporal headache BASIC METABOLIC PANEL Routine 03/15/2024 3:58 PM LOAN REPRESENTATIVE Acute nonintractable headache, unspecified headache type Temporal headache SCAN-OPERATIVE/PROCED URE REPORT 03/15/2024 12:00 AM LOAN REPRESENTATIVE C-REACTIVE PROTEIN Routine 03/07/2024 1: 52 PM LOAN REPRESENTATIVE Headache syndrome SEDIMENTATION RATE Routine 03/07/2024 1: 52 PM LOAN REPRESENTATIVE Headache syndrome CT HEAD BRAIN WO STAT 03/07/2024 1:50 PM LOAN REPRESENTATIVE Headache syndrome LIPID PANEL W REFLEX MEASURED LDL Routine 11/07/2019 9:43 AM CDT Lipid screening COLONOSCOPY SCREENING Routine 12/26/2018 8:47 AM CDT Screening for colon cancer ANTI HIV 1/2 Routine 08/06/2018 1:59 PM CDT Screen for STD (sexually transmitted disease) ANTI HCV Routine 08/06/2018 1:59 PM CDT Screen for STD (sexually transmitted disease) from Last 3 Months or Most Recently Relevant to Health Maintenance Results * LAB TRACKING EVENT (03/25/2024 12:43 PM LOAN REPRESENTATIVE) Other (Other) Client Collect / Unknown 03/25/2024 12:43 PM LOAN REPRESENTATIVE 03/26/2024 7:01 AM LOAN REPRESENTATIVE us Michelle Glasgow MD LAB BILL ONLY Final Re sult [facility] [address] [place] [address], * PATH TISSUE EXAM (03/25/2024 12:43 PM LOAN REPRESENTATIVE) Case Report Pathology Report Case: [id number] Authorizing Provider: Michelle Glasgow MD Collected: 03/25/2024 1243 Ordering Location: [facility] Received: 03/26/2024 0859 Pathologist: Troy Tubbs MD Specimen: Right Temporal Artery Biopsy 03/27/2024 8:48 AM LOAN REPRESENTATIVE [facility]AL LABORATORY Final Diagnosis A) RIGHT TEMPORAL ARTERY, BIOPSY: Muscular artery, negative for arteritis 03/27/2024 8:48 AM LOAN REPRESENTATIVE [facility] LABORATORY-C ENTRAL LABORATORY Clinical Information 63-year-old male with several weeks of a right-sided headache over the temporal region and some blurry vision. The pain is worse in the morning and does get better throughout the day, but never fully goes away. He has had some lab work recently which shows an elevated ESR. He was recently prescribed prednisone. 03/27/2024 8:48 AM LOAN REPRESENTATIVE [facility] LAB[facility]AT[facility] Gross Description A) Received in formalin, labeled with the patient's name and right temporal artery biopsy, is a calhoun-white, tubular portion of tissue measuring 2.1 cm length and averaging 0.1 cm in diameter. The specimen is sectioned perpendicular to the long axis and entirely submitted in 1 cassette. ROYAL 03/26/2024 03/27/2024 8:48 AM LOAN REPRESENTATIVE [facility] ENTRAL LABORATORY Microscopic Description The final diagnosis is based on microscopic examination of appropriate sections of all specimens. 03/27/2024 8:48 AM LOAN REPRESENTATIVE [facility] ENTRAL LABORATORY Additional Information Interpreted at [facility] - [address] [facility] [address] [address] 03/27/2024 8:48 AM LOAN REPRESENTATIVE [facility] ENTRAL LABORATORY Other (Right Temporal Artery Biopsy) 03/25/2024 12:43 PM LOAN REPRESENTATIVE 03/26/2024 8:59 AM LOAN REPRESENTATIVE us Michelle Glasgow MD PATHOLOGY/CYTOLOGY Final Result [facility] [address] [place] [address], [place] * SCAN-OPERATIVE/PROCEDURE REPORT (03/25/2024 12:00 AM LOAN REPRESENTATIVE) us Scanner OTHER Final Result * SCAN-ANGIOGRAM (03/22/2024 12:00 AM LOAN REPRESENTATIVE) Anatomical Region Laterality Modality Other us Scanner OTHER Final Result * MR HEAD BRAIN WO (03/22/2024 12:00 AM LOAN REPRESENTATIVE) Anatomical Region Laterality Modality BRAIN, HEAD Magnetic Resonan ce us Gonzalez Blount MD MR Final Result * SEDIMENTATION RATE (03/15/2024 3:58 PM LOAN REPRESENTATIVE) Only the most recent of2 resultswithin the time period is included. SED RATE BY MODIFIED SEAN 6 < OR = 20 mm/h [facility] Blood BLOOD SPECIMEN / Unknown 03/15/2024 3:58 PM LOAN REPRESENTATIVE 03/15/2024 3:58 PM LOAN REPRESENTATIVE us Gonzalez Blount MD HEMATOLOGY Final Result Performing Organization Address [facility]/ZIP Co de Phone Number [facility] [id number] [place] [address], [facility] [address] [place] [address] * (ABNORMAL) C-REACTIVE PROTEIN (03/15/2024 3:58 PM LOAN REPRESENTATIVE) Only the most recent of2 resultswithin the time period is included. [facility] C-REACTIVE PROTEIN 21.0(H) <8.0 mg/L [facility] Blood BLOOD SPECIMEN / Unknown 03/15/2024 3:58 PM LOAN REPRESENTATIVE 03/15/2024 3:58 PM LOAN REPRESENTATIVE Gonzalez Blount MD CHEMISTRY Final Result Performing Organization Address [facility] Co de Phone Number [employer] [address] [address], [employer] [facility] [address] [place] [phone] * CBC AND DIFFERENTIAL (03/15/2024 3:58 PM LOAN REPRESENTATIVE) [facility] WHITE BLOOD CELL COUNT 7.4 3.8 - 10.8 Thousand/u L [facility] RED BLOOD CELL COUNT 4.49 [...] BLOOD SPECIMEN / Unknown 03/15/2024 3:58 PM LOAN REPRESENTATIVE 03/15/2024 3:58 PM LOAN REPRESENTATIVE Gonzalez Blount MD HEMATOLOGY Final Result [facility] [address] [place] [address], [facility] [address] [place] [address] * (ABNORMAL) BASIC METABOLIC PANEL (03/15/2024 3:58 PM LOAN REPRESENTATIVE) Pathologist [facility] GLUCOSE 115(H) 65 - 99 mg/dL [employer] [facility] Comment: Fasting reference interval For [...] BLOOD SPECIMEN / Unknown 03/15/2024 3:58 PM LOAN REPRESENTATIVE 03/15/2024 3:58 PM LOAN REPRESENTATIVE Gonzalez Blount MD CHEMISTRY Final Result [facility] [address] [place] [address], [facility] [address] [place] [address] * SCAN-OPERATIVE/PROCEDURE REPORT (03/15/2024 12:00 AM LOAN REPRESENTATIVE) us Scanner OTHER Final Result * CT HEAD BRAIN WO (03/07/2024 1:50 PM LOAN REPRESENTATIVE) Anatomical Region Laterality Modality HEAD, BRAIN Computed Tomogra phy 03/07/2024 2:02 PM LOAN REPRESENTATIVE Narrative 03/07/2024 2:02 PM LOAN REPRESENTATIVE For Patients: As a result of the [...] MD @ 03/07/2024 2:02:09 PM (Electronically Signed) us Patsy [place] CT Final Result * (ABNORMAL) LIPID PANEL W REFLEX MEASURED LDL (11/07/2019 9:43 AM CDT) Pathologist [facility] CHOLESTEROL,TOTAL 206(H) 100 - 199 mg/dL 11/07/2019 6:48 PM CDT [facility] TRIGLYCERIDES 81 <150 mg/dL 11/07/2019 6:48 PM CDT [facility] HDL CHOLESTEROL 49 >40 mg/dL 0 6:48 PM CDT [facility] NON-HDL CHOLESTEROL 157(H) <145 mg/dl 11/07/2019 6:48 PM CDT [facility] CHOL/HDL RATIO 4.20 <4.50 11/07/2019 6:48 PM CDT [facility] LDL CHOLESTEROL 141(H) <=130 mg/dL 11/07/2019 6:48 PM CDT [facility] PROVIDER ORDERED STATUS RANDOM 11/07/2019 6:48 PM CDT [facility] Blood BLOOD SPECIMEN / Unknown Venipuncture / Unknown 11/07/2019 9:43 AM CDT 11/07/2019 9:43 AM CDT us Gabe Ma MD CHEMISTRY Final Result [facility] [address] [place] [address], * COLONOSCOPY SCREENING (12/26/2018 8:47 AM CDT) us Gabe Ma MD GI PROCEDURE ORD Final Result * ANTI HCV (08/06/2018 1:59 PM CDT) HEPATITIS C ANTIBODY Non-React areli Non-React areli 08/06/2018 9:05 PM CDT [facility] Comment:Antibodies to HCV no t detected; does not exclude the possibility of exposure to HCV. Blood BLOOD SPECIMEN / Unknown Venipuncture / Unknown 08/06/2018 1:59 PM CDT 08/06/2018 1:59 PM CDT us Gabe Ma MD SEND OUTS Final Result Performing Organization Address City/[facility]/ZIP Co de Phone Number [facility] [address] [place] [address], * ANTI HIV 1/2 (08/06/2018 1:59 PM CDT) Pathologist [facility] HIV-1/HIV-2 ANTIBODY Non-Reacti ve Non-Reacti ve 08/06/2018 9:08 PM CDT [facility] Comment:HIV-1 p24 and HIV-1/ HIV-2 Ab not detected. Blood BLOOD SPECIMEN / Unknown Venipuncture / Unknown 08/06/2018 1:59 PM CDT 08/06/2018 1:59 PM CDT us Gabe Ma MD SEND OUTS Final Result Performing Organization Address [facility] Co de Phone Number [facility] [address] [place] [address], from Last 3 Months or Most Recently Relevant to Health Maintenance Insurance [facility] [employer] [place] [id number] [employer] [id number] [facility] Care Teams Field Machinist Relationship Specialty Start Date End [place] [address] PCP - General Family Practice 07/18/18
[2024-04-30 17:52] VITALS: BP 143/84; PULSE 97; RESP 18; TEMP 36.3; O2SAT 94; BMI 28.2
[2024-04-30 18:44] LABS: PCR FLU A POSITIVE PCR FLU A (Negative); PCR FLU B Negative PCR FLU B (Negative); PCR RSV Negative PCR RSV (Negative); SARS PCR* Negative SARS-CoV-2 (Negative)
--- NOTE | 2024-04-30 18:52 | ED_ITS ---
HPI - General Adult General Time Seen by Provider: 18:52 Date Seen: 04/30/24 Chief complaint: Cough Stated complaint: cough, fever, congestion Time Seen by Provider: 04/30/24 18:52 Source: patient, RN notes reviewed and old records reviewed Mode of arrival: ambulatory Limitations: no limitations History of Present Illness HPI narrative: 63-year-old male with history of asthma who presents today with cough, nasal congestion for about a week. Has been taking Robitussin for this. Home COVID test negative. Denies chest pain, shortness of breath, lower extremity s welling. Tried to go to urgent care but was unable to be seen and so came to the emergency department. No known ill contacts. Notes also sweats, chills, fatigue, body aches. Related Data Home Medications ?Medication ?Instructions ?Recorded ?Confirmed fluticasone furoate 200 inhalation 01/12/22 mcg-vilanterol 25 mcg/dose inhalation powder (Breo Ellipta) meloxicam 15 mg tablet mg 01/12/22 omeprazole magnesium 20 mg PO DAILY Heart Burn 01/12/22 03/25/24 oxybutynin chloride 10 mg mg PO 01/12/22 tablet,extended release 24 hr tamsulosin 0.4 mg capsule 0.8 mg PO Q24H 01/12/22 03/25/24 trospium 60 mg capsule,extended 60 mg PO DAILY 01/12/22 03/25/24 release 24 hr albuterol sulfate 90 mcg/actuation 2 puff inhalation Q4H PRN 03/28/22 03/25/24 aerosol inhaler (Ventolin HFA) aspirin 81 mg chewable tablet 81 mg PO DAILY 03/28/22 03/25/24 fluticasone furoate 200 1 inh inhalation DAILY 03/28/22 03/25/24 mcg-vilanterol 25 mcg/dose inhalation powder (Breo Ellipta) loratadine 10 mg tablet (Claritin) 10 mg PO DAILY 03/28/22 03/25/24 Previous Rx's ?Medication ?Instructions ?Recorded oxycodone 5 mg tablet 5 mg PO Q6H PRN pain #10 tabs 03/29/22 sennosides 8.6 mg capsule (senna) 8.6 mg PO DAILY PRN constipation 03/29/22 #90 caps benzonatate 200 mg capsule 200 mg PO TID PRN cough #10 caps 04/30/24 Allergies Allergy/AdvReac Type Severity Reaction Status Date / Time No Known Drug Allergies Allergy Verified 04/30/24 13:43 [facility] Medical History (Updated 04/30/24 @ 19:16 by Papo Frias MD) Varicose vein of leg ?I83.90 - Asymptomatic varicose veins of unspecified lower extremity (ICD-10) Superficial thrombophlebitis ?I80.9 - Phlebitis and thrombophlebitis of unspecified site (ICD-10) Phlebitis ?I80.9 - Phlebitis and thrombophlebitis of unspecified site (ICD-10) Mild intermittent asthma without complication ?J45.20 - Mild intermittent asthma, uncomplicated (ICD-10) Kidney stone ?N20.0 - Calculus of kidney (ICD-10) GERD (gastroesophageal reflux disease) ?K21.9 - Gastro-esophageal reflux disease without esophagitis (ICD-10) BPH (benign prostatic hyperplasia) ?N40.0 - Benign prostatic hyperplasia without lower urinary tract symptoms (ICD-10) Surgical History (Updated 03/28/22 @ 09:26 by Silvia Jerome RN) Hx of tonsillectomy ?Z90.89 - Acquired absence of other organs (ICD-10) Hx of arthroscopic knee surgery ?Z98.890 - Other specified postprocedural states (ICD-10) Hx of esophagogastroduodenoscopy ?Z98.890 - Other specified postprocedural states (ICD-10) Hx of elbow surgery ?Z98.890 - Other specified postprocedural states (ICD-10) Hx of colonoscopy ?Z98.890 - Other specified postprocedural states (ICD-10) History of open reduction and internal fixation (ORIF) procedure ?Z98.890 - Other specified postprocedural states (ICD-10) Social History Smoking Status: Never smoker Do you use any of these nicotine containing products: None How often do you have a drink containing alcohol: never How often do you have six or more drinks on one occasion: Never AUDIT-C Alcohol total score: 0 Non-prescribed substance use: denies use Caffeine: Yes (coffee) Exam Narrative: Exam Narrative: General: Well-developed and well-nourished, no acute distress Head: Atraumatic and normocephalic Eyes: Pupils are equal reactive, extraocular motions intact, conjunctiva clear ENT: External nose and ears are normal, posterior pharynx without erythema or exudate Neck: No midline cervical tenderness, full spontaneous range of motion the neck, trachea midline, no adenopathy Heart: Regular rate and rhythm no murmurs or thrills Lungs: Clear to auscultation bilaterally without wheezes or crackles Abdomen: Soft, nontender, nondistended with active bowel sounds Musculoskeletal: No tenderness, deformity, or edema Neurologic: Awake, alert, and oriented x3, no gross focal neurologic deficits, cranial nerves intact as tested Psych: Mood and affect are appropriate Skin: No rashes Const: Vital Signs, click to edit/add: Vital Signs - 24 hr 04/30/24 17:52 Temperature 97.3 F L Pulse Rate [Pulse Oximeter] 97 Respiratory Rate 18 Blood Pressure [Ri ght Upper Arm] 143/84 H Pulse Oximetry 94 Oxygen Delivery Me thod Room Air Course Course ED Course: Reviewed most recent office visit from March 07 which was for headache, CT scan at that time was negative with normal CRP and normal ESR, temporal artery biopsy was done which did not demonstrate any findings for arteritis. Brain MRI performed March 22 with possible dissection and intramural hematoma the right vertebral artery. Patient had CTA today and I requested it to be read today although unlikely to be related to his emergency department presentation. Patient presents today with upper respiratory symptoms and productive cough. On exam here, vital is stable, no hypoxia, lungs are clear. Labs independently interpreted by me with positive influenza test. Suspect this is the cause of patient's symptoms. Chest x-ray ordered due to patient's concern for secondary pneumonia. If this is negative, patient will be discharged, not a candidate for Tamiflu due to time of onset of symptoms. Reevaluation(s) Time of Reevaluation #1: 19:14 Reevaluation #1: Reviewed radiology interpretation CTA of the head and neck done earlier today, focal narrowing at the V4 segment but no dissection or occlusion Time of Reevaluation #2: 19:17 Reevaluation #2: Chest x-ray and panel interpreted by me without evidence for acute infiltrate, effusion, hemothorax or pneumothorax. Patient is stable for discharge. Time of Reevaluation #3: 20:44 Reevaluation #3: Reviewed radiology interpretation chest x-ray which agrees with my initial interpretation Vital Signs Vital signs: Initial Vital Signs Temperature 97.3 F L 04/30/24 17:52 Temperature Source Temporal Artery Scan 04/30/24 17:52 Pulse Rate 97 04/30/24 17:52 Respiratory Rate 18 04/30/24 17:52 Blood Pressure 143/84 H 04/30/24 17:52 Blood Pressure Mean 103 04/30/24 17:52 Blood Pressure Position Sitting 04/30/24 17:52 Pulse Oximetry 94 04/30/24 17:52 Oxygen Delivery Method Room Air 04/30/24 17:52 Vital Signs Temperature 97.3 F L 04/30/24 17:52 Pulse Rate 97 04/30/24 17:52 Respiratory Rate 18 04/30/24 17:52 Blood Pressure 143/84 H 04/30/24 17:52 Pulse Oximetry 94 04/30/24 17:52 Oxygen Delivery Method Room Air 04/30/24 17:52 Temperature 97.3 F L 04/30/24 17:52 Pulse Rate 97 04/30/24 17:52 Respiratory Rate 18 04/30/24 17:52 Blood Pressure 143/84 H 04/30/24 17:52 Pulse Oximetry 94 04/30/24 17:52 Oxygen Delivery Method Room Air 04/30/24 17:52 Medical Decision Making Lab Data Labs: Lab Results 04/30/24 Range/Units 17:48 SARS-CoV-2 (PCR) Negative SARS-CoV-2 (Negative) Influenza Type A (PCR) POSITIVE PCR FLU A A (Negative) Influenza Type B (PCR) Negative PCR FLU B (Negative) RSV (PCR) Negative PCR RSV (Negative) Discharge Plan Discharge Clinical Impression: Influenza A Patient Disposition: Home, Self-Care Condition: Stable Instructions: Influenza (DC) Additional Instructions: Tylenol and ibuprofen as needed for fever, body aches Activity Level: No Restrictions Discharge Diet: Regular Prescriptions: New benzonatate 200 mg capsule 200 mg PO TID PRN (Reason: cough) Qty: 10 0RF No Action oxybutynin chloride 10 mg tablet extended release 24hr PO meloxicam 15 mg tablet Patient Comments: TAKE 1 TABLET BY MOUTH DAILY WITH FOOD tamsulosin 0.4 mg capsule 0.8 mg PO Q24H trospium 60 mg capsule,extended release 24hr 60 mg PO DAILY fluticasone furoate-vilanterol [Breo Ellipta] 200-25 mcg/dose blister with device INHALATION Patient Comments: INHALE 1 PUFF BY MOUTH DAILY omeprazole magnesium [Acid Tail Dogger (omeprazole)] 20 mg PO DAILY albuterol sulfate [Ventolin HFA] 90 mcg/actuation HFA aerosol inhaler 2 puff INHALATION Q4H PRN Patient Comments: INHALE 2 PUFFS BY MOUTH EVERY 4 HOURS NEEDED FOR COUGH OR WHEEZING aspirin 81 mg tablet,chewable 81 mg PO DAILY fluticasone furoate-vilanterol [Breo Ellipta] 200-25 mcg/dose blister with device 1 inh inhalation DAILY loratadine [Claritin] 10 mg tablet 10 mg PO DAILY oxycodone 5 mg tablet 5 mg PO Q6H PRN (Reason: pain) Qty: 10 0RF senna 8.6 mg capsule 8.6 mg PO DAILY PRN (Reason: constipation) Qty: 90 0RF Rx Instructions: Take stool softeners while on narcotic pain medicine. Stop if having greater than 2 bowel movements per day. Follow Up/Referrals: Gabe Ma MD [Primary Care Provider] - Stand Alone Forms: [facility] Info Instructions
--- NOTE | 2024-04-30 19:09 | CRLHL7_ITS ---
For Patients: As a result of the Century Cures Act, medical imaging exams and procedure reports are released immediately into your electronic medical record. You may view this report before your referring provider. If you have questions, please contact your health care provider. INDICATION: Cough and fever COMPARISON: 07/04/2018 chest radiograph TECHNIQUE: Two radiographic view(s) of the chest. FINDINGS: No pleural effusion. No pneumothorax. No definite focal pulmonary consolidation. Normal heart size. There are osseous degenerative changes. Similar mild asymmetric widening of the right acromioclavicular joint since 07/04/2018. Chronic mild anterior vertebral body wedging in the thoracic spine. IMPRESSION: No acute thoracic findings. Dictated by Art Vargas MD @ 04/30/2024 8:42:02 PM (Electronically Signed)
--- OUTSIDE RECORDS SUMMARY | 2024-04-30 19:16 | XMS_ITS | Encounter Summary ---
Author Organization [facility] Address [address] [place] [address] Care Team Providers Care Licensing And Registration Director Name Role Phone MaGabe anderson Primary Care Provider Reason for Referral * Consultation (Urgent (within 2 weeks) ) - Open Specialty Diagnoses / Procedures Referred By Julee gallegos Referred To Contact Ophthalmology Diagnoses Other vascular headache Shadia Waterman MD [address] [place] [address] [address] [place] [address] Phone: tel: fax: Referral ID Status Reason Start Date Expiration Date V isits Requested Visits Authorized [id number] Open Specialty Services Required 03/21/2024 1 1 Comments Concern for blurred vision and GCA HOUSE ATTENDANT * Other (Routine) - Open Specialty Diagnoses / Procedures Referred By Julee gallegos Referred To Contact Diagnoses Other vascular headache Procedures N NEUROLOGY APPOINTMENT Shadia Waterman MD [address] [place] [address] [address] [place] [address] Phone: tel: fax: Referral ID Status Reason Start Date Expiration Date Visits Re quested Visits Authorized [id number] Open 04/19/2024 1 1 HOUSE ATTENDANT * (Routine) - Open Specialty Diagnoses / Procedures Referred By Julee gallegos Referred To Contact Diagnoses Other vascular headache Procedures MRA HEAD W/O CON Shadia Waterman MD [address] [place] [address] [address] [place] [address] Phone: tel: fax: Referral ID Status Reason Start Date Expiration Date Visits Re quested Visits Authorized [id number] Open 03/21/2024 1 1 HOUSE ATTENDANT Reason for Visit * Reason Comments Consultation Encounter Details Date Type Department Care Team ([facility] st Contact Info) Description 03/21/2024 10:00 AM BATH HOUSE ATTENDANT Office Visit [facility] - [facility] [address] [place] [address]. [address] [place] [id number] Shadia Waterman MD [address] [place] [address] [address] [place] [phone] Other vascular headache (Primary Dx) Social History Tobacco Use Types Packs/Day Years Used Date Smoking Tobacco: Never Smokeless Tobacco: Never Tobacco Cessation:Counseling Given: Not Answered Alcohol Use Standard Drinks/Week Comments Not Asked 0 (1 standard drink = 0.6 oz pur e alcohol) None since 2018 Sex and Gender Information Value Date Recorded Sex Assigned at Not on file Legal Sex Male 2:26 PM BATH HOUSE ATTENDANT Gender Identity Not on file Sexual Orientation Not on file documented as of this encounter Patient Instructions * Patient Instructions* Shadia Waterman MD - 03/21/2024 10:00 AM BATH HOUSE ATTENDANT [facility]: Call [phone] HOUSE ATTENDANT HOUSE ATTENDANT documented in this encounter Progress Notes * Shadia Waterman MD - 03/21/2024 10:00 AM CST Images from the original note were not included. [facility] [address] [place] [address], [address] [place] [address] Neurology Initial Note / Consultation Assessment and Plan: # Right temporal headache Patient has a new onset right sided headache near the hindu. On the differential is GCA for which [...] software. Despite proofreading, occasional wrong word or '[id number]' substitutions may have occurred due to limitations of the software. Please read the chart carefully and recognize, using context, where these substitutions may haveoccurred. Shadia Waterman MD Fellowship trained Multiple Sclerosis and Neuroimmunology specialist [facility] Chief Complaint: Consultation History [...] Resource Strain: Low Risk (01/05/2024) [facility] Financial Resource Strain Difficulty of Paying Living Expenses: 3 Difficulty of Paying Living Expenses: Not on file Food Insecurity: No Food Insecurity (01/05/2024) [facility] Food Insecurity Do you worry your food will run out before you are able to buy more?: 1 Transportation Needs: No Transportation Needs (01/05/2024) [facility] Transportation Needs Does lack of transportation keep you from medical appointments?: 1 Does lack of transportation keep you from work, meetings or getting things that you need?: 1 Physical Activity: Not on file Stress: Not on file Social Connections: Socially Integrated (01/05/2024) Received from [facility] Social Connections Do you often feel lonely or isolated from those around you?: 0 Intimate Partner Violence: Not on file Housing Stability: Low Risk (01/05/2024) Received from [facility] Housing Stability What is your housing situation today?: 1 Review of System: ROS: Pertinent positive and negative systems are described in the HPI; the remainder of the 14 systems are negative. Physical Exam: General: no acute distress, well appearing CV: No LE edema Pulm: normal work of breathing MSK: no joint swelling or deformity. No tenderness at this time to the right hindu. Integument: no visible rash Psych: appropriate affect [...] and/or procedures, and documenting in the chart. HOUSE ATTENDANT documented in this encounter Plan of Treatment [...] PROTEIN, QUANT ([facility]) Routine 03/21/2024 10:00 AM BATH HOUSE ATTENDANT Other vascular headache SEDIMENTATION RATE - WESTERGREN ([facility]) Routine 03/21/2024 10:00 AM BATH HOUSE ATTENDANT Other vascular headache documented in this encounter Results * SEDIMENTATION RATE - WESTERGREN ([facility]) (03/21/2024 10:00 AM BATH HOUSE ATTENDANT) Sed Rate- Westergren ([facility]) 3 0 - 30 mm/hr [facility] 1 Blood 03/21/2024 10:0 0 AM BATH HOUSE ATTENDANT 03/20/2024 11:00 PM BATH HOUSE ATTENDANT Narrative [facility] 1 - 03/22/2024 9:11 AM BATH HOUSE ATTENDANT Performed at: - [facility] [id number] Assistant Printer Floor Covering: Hansel Swann MD, Phone: [phone] us Shadia Waterman MD [facility] ORDERABLES Final Res ult [facility] 1 * C-REACTIVE PROTEIN, QUANT ([facility]) (03/21/2024 10:00 AM BATH HOUSE ATTENDANT) Pathologist [facility] C-Reactive Protein Quantitave ([facility]) <1 0 - 10 mg/L [facility] 1 Blood 03/21/2024 10:0 0 AM BATH HOUSE ATTENDANT 03/20/2024 11:00 PM BATH HOUSE ATTENDANT Narrative [facility] 1 - 03/22/2024 9:11 AM BATH HOUSE ATTENDANT Performed at: - [facility] [id number] Assistant Printer Floor Covering: Hansel Swann MD, Phone: [phone] us Shadia Waterman MD [facility] ORDERABLES Final Res ult [facility] 1 documented in this encounter Visit Diagnoses Diagnosis Other vascular headache- Primary documented in this encounter Care Teams Licensing And Registration Director Relationship Specialty Start Date End Date Gabe Ma [address] [place] [address] PCP - General Family Medicine 03/21/24 documented as of this encounter
--- OUTSIDE RECORDS SUMMARY | 2024-04-30 19:16 | XMS_ITS | Clinical Summary ---
Author Organization [facility] Address [address] [place] [address] Care Team Providers Care Industrial Therapist Name Role Phone Gabe Ma Primary Care Provider [phone] Allergies No known active allergies Medications albuterol [...] Department Care Team Description 04/16/2024 9:30 AM NEIGHBORHOOD WORKER Office Visit [facility] [address] [place] [address] Shadia Waterman MD Vertebral artery dissection (HCC) (Primary Dx); Other vascular headache 03/21/2024 10:00 AM NEIGHBORHOOD WORKER Office Visit [facility] [address] [place] [address] Shadia Waterman MD Other vascular headache (Primary [...] on file Legal Sex Male 2:26 PM NEIGHBORHOOD WORKER Gender Identity Not on file Sexual Orientation [...] - WESTERGREN ([facility]) Routine 03/21/2024 10:00 AM NEIGHBORHOOD WORKER Other vascular headache C-REACTIVE PROTEIN, QUANT ([facility]) Routine 03/21/2024 10:00 AM NEIGHBORHOOD WORKER Other vascular headache from Last 3 Months Results * C-REACTIVE PROTEIN, QUANT ([facility]) (03/21/2024 10:00 AM NEIGHBORHOOD WORKER) C-Reactive Protein Quantitave ([facility]) <1 0 - 10 mg/L [facility] 1 Blood 03/21/2024 10:0 0 AM NEIGHBORHOOD WORKER 03/20/2024 11:00 PM NEIGHBORHOOD WORKER Narrative [facility] 1 - 03/22/2024 9:11 AM NEIGHBORHOOD WORKER Performed at: - [facility] [address] [id number] Waterfront Director: Hansel Swann MD, Phone: [phone] us Shadia Waterman MD [facility] ORDERABLES Final Res ult Performing Organization Address [facility] de Phone Number [facility] 1 * SEDIMENTATION RATE - WESTERGREN ([facility]) (03/21/2024 10:00 AM NEIGHBORHOOD WORKER) Sed Rate- Westergren ([facility]) 3 0 - 30 mm/hr [facility] 1 Blood 03/21/2024 10:0 0 AM NEIGHBORHOOD WORKER 03/20/2024 11:00 PM NEIGHBORHOOD WORKER Narrative [facility] 1 - 03/22/2024 9:11 AM NEIGHBORHOOD WORKER Performed at: [facility] [id number] Waterfront Director: Hansel Swann MD, Phone: [phone] us Shadia Waterman MD [facility] ORDERABLES Final Res ult [facility] 1 from Last 3 Months Insurance [facility]CIAL Care Teams Industrial Therapist Relationship Specialty Start Date End Date Gabe Ma [address] [place] [address] PCP - General Family Medicine 03/21/24
--- OUTSIDE RECORDS SUMMARY | 2024-04-30 19:16 | XMS_ITS | Clinical Summary ---
Author Organization [facility] Address [address] [place] [address] Care Team Providers Care District Plant Superintendent Name Role Phone Provider, Not In System Primary Care Provider Un available Source Comments This disclosure is being made pursuant to the [employer] program and maynot contain all information available regarding this patient.[facility] Allergies No known active allergies Medications ALBUTEROL [...] on file Legal Sex Male 8:56 AM COAL PULVERIZER OPERATOR Gender Identity Not on file Sexual Orientation Not on file Last Filed Vital Signs Vital Sign Reading Time Taken Comments Blood Pressure 159/109 03/30/2018 9:03 AM COAL PULVERIZER OPERATOR Pulse 93 03/30/2018 9:03 AM COAL PULVERIZER OPERATOR Temperature 36.7 C (98 F) 03/30/2018 9:03 AM COAL PULVERIZER OPERATOR Respiratory Rate 16 03/30/2018 9:03 AM COAL PULVERIZER OPERATOR Oxygen Saturation 97% 03/30/2018 9:03 AM COAL PULVERIZER OPERATOR Inhaled Oxygen Concentration - - Weight 82.6 kg (182 lb) 03/30/2018 9:03 AM COAL PULVERIZER OPERATOR Height 172.7 cm (5' 8) 03/30/2018 9:03 AM COAL PULVERIZER OPERATOR Body Mass Index 27.67 03/30/2018 9:03 AM COAL PULVERIZER OPERATOR Plan of Treatment Health Maintenance Due Date [...] Insurance WORKERS COMPENSATION WORK[place] [id number] Care Teams District Plant Superintendent Relationship Specialty Start Date End Date Provider, Not In System PCP - General 03/30/18
--- OUTSIDE RECORDS SUMMARY | 2024-04-30 19:16 | XMS_ITS | Referral Summary ---
Author Organization [facility] Address [address] [place] [address] Care Team Providers Care Turret Press Operator Name Role Phone MaGabe anderson Primary Care Provider [phone] Allergies No known active allergies Medications albuterol [...] Comments Blood Pressure 126/82 06/20/2022 11:58 AM FOOD AND BEVERAGE DIRECTOR Pulse 76 06/20/2022 11:58 AM FOOD AND BEVERAGE DIRECTOR Temperature 36.7 C (98 F) 06/20/2022 11:58 AM FOOD AND BEVERAGE DIRECTOR Respiratory Rate 16 06/20/2022 11:58 AM FOOD AND BEVERAGE DIRECTOR Oxygen Saturation 93% 06/20/2022 11:58 AM FOOD AND BEVERAGE DIRECTOR Inhaled Oxygen Concentration - - Weight 82.6 kg (182 lb) 06/20/2022 7:08 AM FOOD AND BEVERAGE DIRECTOR Height 185.4 cm (6' 1) 06/20/2022 7:08 AM FOOD AND BEVERAGE DIRECTOR Body Mass Index 24.01 06/20/2022 7:08 AM FOOD AND BEVERAGE DIRECTOR Plan of Treatment Not on file Care Teams Turret Press Operator Relationship Specialty Start Date End Date Gabe Ma [address] [place] [address] PCP - General Family Medicine 06/20/22
--- OUTSIDE RECORDS SUMMARY | 2024-04-30 19:16 | XMS_ITS | Clinical Summary ---
Author Organization [facility] Address [place], [place] [address] Care Team Providers Care Diffusion Furnace Operator Name Role Phone Gabe Ma MD Primary [...] Type Department Care Team Description 04/30/2024 Telephone [facility] [address] [facility] [address] Gabe Ma MD Appointment Request (Cough and cold symptoms) 03/26/2024 Lab Requisition [facility] [phone] Michelle Glasgow MD 03/25/2024 Orders Only [facility] Scanner 1 scan: (1-Ord) [place], RT TEMPORAL ARTERY BX, 03/25/2024 03/25/2024 Orders Only [facility] [address] [facility] [place] [place] [place] [address] Gonzalez Blount MD 1 scan: (1-Ord) [place], HEAD/BRAIN WO CONTRAST, 03/22/2024 03/22/2024 Orders Only [facility] Scanner 1 scan: (1-Ord) [facility], MR ANGIO HEAD WO CON, 03/22/2024 03/20/2024 10:45 AM GRADE FOREMAN [facility] [address] [place] [address] Michelle Glasgow MD Consult (Right Temporal artery biopsy referred by Dr. Blount) 03/20/2024 Travel 03/19/2024 Telephone [facility] [address] [place] [address] Gonzalez Blount MD new order needed 03/18/2024 Telephone [facility] [address] [place] [address] Gonzalez Blount MD 03/15/2024 3:05 PM GRADE FOREMAN [facility] [address] [place] [address] Gonzalez Blount MD Headache (waking up at night with the pain ) 03/15/2024 9:00 AM GRADE FOREMAN Office Visit [facility] [address] [facility] [address] [place] [address] Joe Real MD Recheck (Left wrist pain) 03/15/2024 Orders Only [facility] Scanner 1 scan: (1-Ord) [place] UROLOGY, CYSTOSCOPY W BOTOX INJ, 03/15/2024 03/15/2024 Travel 03/07/2024 2:30 PM GRADE FOREMAN Ancillary Procedure [facility] [address] [place] [address] 03/07/2024 1:15 PM GRADE FOREMAN [facility] [address] [place] [address] Patsy Valencia PA Headache 03/07/2024 Travel 03/07/2024 Nurse Triage [facility] [address] [place] [address] Patsy Valencia PA Headache 03/07/2024 Telephone [facility] [address] [place] [address] Patsy Valencia PA Headache from Last 3 [...] 0.6 oz pu re alcohol) quit 10/2018 [facility] Utilities Answer Date Recorded Do you have [...] on file Legal Sex Male 7:21 AM GRADE FOREMAN Gender Identity Not on file Sexual Orientation Not on file Obstetrics History Last Filed Vital Signs Vital Sign Reading Time Taken Comments Blood Pressure 137/81 03/20/2024 10:46 AM GRADE FOREMAN Pulse 67 03/20/2024 10:46 AM GRADE FOREMAN Temperature 36.8 C (98.2 F) 03/07/2024 1:11 PM GRADE FOREMAN Respiratory Rate 18 09/01/2021 9:10 AM CDT Oxygen Saturation 97% 03/20/2024 10:46 AM GRADE FOREMAN Inhaled Oxygen Concentration - - Weight 85.3 kg (188 lb 1.6 oz) 03/20/2024 10:46 AM GRADE FOREMAN Height 170.2 cm (5' 7) 01/05/2024 3:52 PM CDT Body Mass Index 29.46 01/05/2024 3:52 PM CDT Plan of Treatment Upcoming Encounters Date Type Department Care Team (Late st Contact Info) Description 06/20/2024 3:15 PM GRADE FOREMAN Office Visit [facility] [address] [facility] [address] [place] [address] Joe Real MD [address] [facility] [address] [place] [address] Health Maintenance Due Date Last Done Comments [...] TRACKING EVENT Routine 03/25/2024 12 :43 PM GRADE FOREMAN PATH TISSUE EXAM Routine 03/25/2024 12:4 3 PM GRADE FOREMAN SCAN-OPERATIVE/PROCED URE REPORT 03/25/2024 12:00 AM GRADE FOREMAN SCAN-ANGIOGRAM 03/22/2024 12:00 AM GRADE FOREMAN MR HEAD BRAIN WO Routine 03/22/2024 12:0 0 AM GRADE FOREMAN Temporal headache Acute nonintractable headache, unspecified headache type C-REACTIVE PROTEIN Routine 03/15/2024 3: 58 PM GRADE FOREMAN Acute nonintractable headache, unspecified headache type Temporal headache SEDIMENTATION RATE Routine 03/15/2024 3: 58 PM GRADE FOREMAN Acute nonintractable headache, unspecified headache type Temporal headache CBC WITH AUTO DIFFERENTIAL Routine 03/15/2024 3:58 PM GRADE FOREMAN Acute nonintractable headache, unspecified headache type Temporal headache BASIC METABOLIC PANEL Routine 03/15/2024 3:58 PM GRADE FOREMAN Acute nonintractable headache, unspecified headache type Temporal headache SCAN-OPERATIVE/PROCED URE REPORT 03/15/2024 12:00 AM GRADE FOREMAN C-REACTIVE PROTEIN Routine 03/07/2024 1: 52 PM GRADE FOREMAN Headache syndrome SEDIMENTATION RATE Routine 03/07/2024 1: 52 PM GRADE FOREMAN Headache syndrome CT HEAD BRAIN WO STAT 03/07/2024 1:50 PM GRADE FOREMAN Headache syndrome LIPID PANEL W REFLEX MEASURED [...] * LAB TRACKING EVENT (03/25/2024 12:43 PM GRADE FOREMAN) Other (Other) Client Collect / Unknown 03/25/2024 12:43 PM GRADE FOREMAN 03/26/2024 7:01 AM GRADE FOREMAN us Michelle Glasgow MD LAB BILL ONLY Final Re sult [facility] [address] [place] [address], * PATH TISSUE EXAM (03/25/2024 12:43 PM GRADE FOREMAN) Case Report Pathology Report Case: [id number] Authorizing Provider: Michelle Glasgow MD Collected: 03/25/2024 1243 Ordering Location: [facility] Received: 03/26/2024 0859 Pathologist: Troy Tubbs MD Specimen: Right Temporal Artery Biopsy 03/27/2024 8:48 AM GRADE FOREMAN [facility]AL LABORATORY Final Diagnosis A) RIGHT TEMPORAL ARTERY, BIOPSY: Muscular artery, negative for arteritis 03/27/2024 8:48 AM GRADE FOREMAN [facility] [employer] LABORATORY-C ENTRAL LABORATORY Clinical Information 63-year-old male with several weeks of a right-sided headache over the temporal region and some blurry vision. The pain is worse in the morning and does get better throughout the day, but never fully goes away. He has had some lab work recently which shows an elevated ESR. He was recently prescribed prednisone. 03/27/2024 8:48 AM GRADE FOREMAN [facility]TRAL LABORATORY Gross Description A) Received in formalin, labeled with the patient's name and right temporal artery biopsy, is a calhoun-white, tubular portion of tissue measuring 2.1 cm length and averaging 0.1 cm in diameter. The specimen is sectioned perpendicular to the long axis and entirely submitted in 1 cassette. ORYAL 03/26/2024 03/27/2024 8:48 AM GRADE FOREMAN [facility] ENTRAL LABORATORY Microscopic Description The final diagnosis is based on microscopic examination of appropriate sections of all specimens. 03/27/2024 8:48 AM GRADE FOREMAN [facility]AT[facility] ENTRAL LABORATORY Additional Information Interpreted at [facility] - [address] [facility] [address] [address] 03/27/2024 8:48 AM GRADE FOREMAN [facility] ENTRAL LABORATORY Other (Right Temporal Artery Biopsy) 03/25/2024 12:43 PM GRADE FOREMAN 03/26/2024 8:59 AM GRADE FOREMAN us Michelle Glasgow MD PATHOLOGY/CYTOLOGY Final Result [facility] [address] [place] [address], [place] * SCAN-OPERATIVE/PROCEDURE REPORT (03/25/2024 12:00 AM GRADE FOREMAN) us Scanner OTHER Final Result * SCAN-ANGIOGRAM (03/22/2024 12:00 AM GRADE FOREMAN) Anatomical Region Laterality Modality Other us Scanner OTHER Final Result * MR HEAD BRAIN WO (03/22/2024 12:00 AM GRADE FOREMAN) Anatomical Region Laterality Modality BRAIN, HEAD Magnetic Resonan ce us Gonzalez Blount MD MR Final Result * SEDIMENTATION RATE (03/15/2024 3:58 PM GRADE FOREMAN) Only the most recent of2 resultswithin the time period is included. SED RATE BY MODIFIED SEAN 6 < OR = 20 mm/h [facility] Blood BLOOD SPECIMEN / Unknown 03/15/2024 3:58 PM GRADE FOREMAN 03/15/2024 3:58 PM GRADE FOREMAN us Gonzalez Blount MD HEMATOLOGY Final Result Performing Organization Address [facility]/ZIP Co de Phone Number [facility] [address] [place] [address], [employer] [place] [address] [place] [address] * (ABNORMAL) C-REACTIVE PROTEIN (03/15/2024 3:58 PM GRADE FOREMAN) Only the most recent of2 resultswithin the time period is included. [facility] C-REACTIVE PROTEIN 21.0(H) <8.0 mg/L [employer] [facility] Blood BLOOD SPECIMEN / Unknown 03/15/2024 3:58 PM GRADE FOREMAN 03/15/2024 3:58 PM GRADE FOREMAN Gonzalez Blount MD CHEMISTRY Final Result Performing Organization Address [facility] Co de Phone Number [facility] [address] [address], [employer] [place] [address] [place] [phone] * CBC AND DIFFERENTIAL (03/15/2024 3:58 PM GRADE FOREMAN) [facility] WHITE BLOOD CELL COUNT 7.4 3.8 - 10.8 Thousand/u L [facility] RED BLOOD CELL COUNT 4.49 [...] BLOOD SPECIMEN / Unknown 03/15/2024 3:58 PM GRADE FOREMAN 03/15/2024 3:58 PM GRADE FOREMAN Gonzalez Blount MD HEMATOLOGY Final Result [facility] [address] [place] [address], [facility] [address] [place] [address] * (ABNORMAL) BASIC METABOLIC PANEL (03/15/2024 3:58 PM GRADE FOREMAN) Pathologist [facility] GLUCOSE 115(H) 65 - 99 mg/dL [employer] Comment: Fasting reference interval For [...] BLOOD SPECIMEN / Unknown 03/15/2024 3:58 PM GRADE FOREMAN 03/15/2024 3:58 PM GRADE FOREMAN Gonzalez Blount MD CHEMISTRY Final Result [facility] [address] [place] [address], [facility] [address] [place] [address] * SCAN-OPERATIVE/PROCEDURE REPORT (03/15/2024 12:00 AM GRADE FOREMAN) us Scanner OTHER Final Result * CT HEAD BRAIN WO (03/07/2024 1:50 PM GRADE FOREMAN) Anatomical Region Laterality Modality HEAD, BRAIN Computed Tomogra phy 03/07/2024 2:02 PM GRADE FOREMAN Narrative 03/07/2024 2:02 PM GRADE FOREMAN For Patients: As a result of the [...] MEASURED LDL (11/07/2019 9:43 AM CDT) Pathologist [facility] CHOLESTEROL,TOTAL 206(H) 100 - 199 mg/dL 11/07/2019 6:48 PM CDT [facility] TRAL LABORATORY TRIGLYCERIDES 81 <150 mg/dL 11/07/2019 6:48 PM CDT [facility] HDL CHOLESTEROL 49 >40 mg/dL 0 6:48 PM CDT [facility] NON-HDL CHOLESTEROL 157(H) <145 mg/dl 11/07/2019 6:48 PM CDT [facility] TRAL LABORATORY CHOL/HDL RATIO 4.20 <4.50 11/07/2019 6:48 PM CDT [facility] LDL CHOLESTEROL 141(H) <=130 mg/dL 11/07/2019 6:48 PM CDT [facility] TR[facility] PROVIDER ORDERED STATUS RANDOM 11/07/2019 6:48 PM CDT [facility] TRAL LABORATORY Blood BLOOD SPECIMEN / Unknown Venipuncture / Unknown 11/07/2019 9:43 AM CDT 11/07/2019 9:43 AM CDT us Gabe Ma MD CHEMISTRY Final Result [facility] [address] [place] [address], * COLONOSCOPY SCREENING (12/26/2018 8:47 AM CDT) us Gabe Ma MD GI PROCEDURE ORD Final Result * ANTI HCV (08/06/2018 1:59 PM CDT) HEPATITIS C ANTIBODY Non-React areli Non-React areli 08/06/2018 9:05 PM CDT [facility] TR[facility] LABORATORY Comment:Antibodies to HCV no t detected; does not exclude the possibility of exposure to HCV. Blood BLOOD SPECIMEN / Unknown Venipuncture / Unknown 08/06/2018 1:59 PM CDT 08/06/2018 1:59 PM CDT us Gabe Ma MD SEND OUTS Final Result Performing Organization Address City/[facility]/ZIP Co de Phone Number [facility] [address] [place] [address], * ANTI HIV 1/2 (08/06/2018 1:59 PM CDT) Pathologist [facility] HIV-1/HIV-2 ANTIBODY Non-Reacti ve Non-Reacti ve 08/06/2018 9:08 PM CDT [facility] TR[facility] LAB[facility]ATORY Comment:HIV-1 p24 and HIV-1/ HIV-2 Ab not detected. Blood BLOOD SPECIMEN / Unknown Venipuncture / Unknown 08/06/2018 1:59 PM CDT 08/06/2018 1:59 PM CDT us Gabe Ma MD SEND OUTS Final Result Performing Organization Address [facility] Co de Phone Number [facility] [address] [place] [address], from Last 3 Months or Most Recently Relevant to Health Maintenance Insurance [facility] WC [employer] [place] [id number] [employer] [id number] [facility] Care Teams Diffusion Furnace Operator Relationship Specialty Start Date End [place] [address] PCP - General Family Practice 07/18/18
--- OUTSIDE RECORDS SUMMARY | 2024-04-30 19:16 | XMS_ITS | Clinical Summary ---
Author Organization [place] Address [address] [place] [address] Care Team Providers Care Bulk Delivery Driver Name Role Phone Ma Gabe Reid Primary Care Provider Allergies No known active allergies Medications albuterol [...] Comments Blood Pressure 126/82 06/20/2022 11:58 AM ROOF PROMENADE TILE SETTER Pulse 76 06/20/2022 11:58 AM ROOF PROMENADE TILE SETTER Temperature 36.7 C (98 F) 06/20/2022 11:58 AM ROOF PROMENADE TILE SETTER Respiratory Rate 16 06/20/2022 11:58 AM ROOF PROMENADE TILE SETTER Oxygen Saturation 93% 06/20/2022 11:58 AM ROOF PROMENADE TILE SETTER Inhaled Oxygen Concentration - - Weight 82.6 kg (182 lb) 06/20/2022 7:08 AM ROOF PROMENADE TILE SETTER Height 185.4 cm (6' 1) 06/20/2022 7:08 AM ROOF PROMENADE TILE SETTER Body Mass Index 24.01 06/20/2022 7:08 AM ROOF PROMENADE TILE SETTER Plan of Treatment Health Maintenance Due Date [...] age to complete this topic Care Teams Bulk Delivery Driver Relationship Specialty Start Date End Date Gabe Ma [address] [place] [address] PCP - General Family Medicine 06/20/22
--- OUTSIDE RECORDS SUMMARY | 2024-04-30 19:16 | XMS_ITS | Referral Summary ---
Author Organization [facility] Address [address] [place] [address] Care Team Providers Care Enamel Shader Name Role Phone Gabe Ma Franklin Primary Care Provider [phone] Encounters Date Type Department Care Team Description 04/16/2024 9:30 AM SHIRT IRONER SUPERVISOR Office Visit [address] [place] [address] Shadia Waterman MD Vertebral artery dissection (HCC) (Primary Dx); Other vascular headache 03/21/2024 10:00 AM SHIRT IRONER SUPERVISOR Office Visit [address] [place] [address] Shadia Waterman MD Other vascular headache (Primary [...] on file Legal Sex Male 2:26 PM SHIRT IRONER SUPERVISOR Gender Identity Not on file Sexual Orientation Not on file Plan of Treatment Not on file Procedures Procedure Name Priority Date/Time Associated Diagnosis Comments SEDIMENTATION RATE - WESTERGREN ([facility]) Routine 03/21/2024 10:00 AM SHIRT IRONER SUPERVISOR Other vascular headache C-REACTIVE PROTEIN, QUANT ([facility]) Routine 03/21/2024 10:00 AM SHIRT IRONER SUPERVISOR Other vascular headache from Last 3 Months Results * C-REACTIVE PROTEIN, QUANT ([facility]) (03/21/2024 10:00 AM SHIRT IRONER SUPERVISOR) C-Reactive Protein Quantitave ([facility]) <1 0 - 10 mg/L [facility] 1 Blood 03/21/2024 10:0 0 AM SHIRT IRONER SUPERVISOR 03/20/2024 11:00 PM SHIRT IRONER SUPERVISOR Narrative [facility] 1 - 03/22/2024 9:11 AM SHIRT IRONER SUPERVISOR Performed at: - [facility] [address] [id number] Greige Goods Inspector: Hansel Swann MD, Phone: [phone] Shadia Waterman MD [facility] ORDERABLES Final Res ult Performing Organization Address City/[facility] Co de Phone Number [facility] 1 * SEDIMENTATION RATE - WESTERGREN ([facility]) (03/21/2024 10:00 AM SHIRT IRONER SUPERVISOR) Sed Rate- Westergren ([facility]) 3 0 - 30 mm/hr [facility] 1 Blood 03/21/2024 10:0 0 AM SHIRT IRONER SUPERVISOR 03/20/2024 11:00 PM SHIRT IRONER SUPERVISOR Narrative [facility] 1 - 03/22/2024 9:11 AM SHIRT IRONER SUPERVISOR Performed at: - [facility] [id number] [employer] Goods Inspector: Hansel Swann MD, Phone: [phone] Shadia Waterman MD [facility] ORDERABLES Final Res ult Performing Organization Address City/[facility] Co de Phone Number [facility] 1 from Last 3 Months Insurance [facility] COMMERCIAL Care Teams Enamel Shader Relationship Specialty Start Date End Date Gabe [place] [address] PCP - General Family Medicine 03/21/24
--- OUTSIDE RECORDS SUMMARY | 2024-04-30 19:16 | XMS_ITS | Encounter Summary ---
Author Organization [facility] Address [address] [place] [address] Care Team Providers Care Fusing Line Inspector Name Role Phone MaGabe anderson Primary Care Provider [phone] Reason for Referral * (Routine) - Open Specialty Diagnoses / Procedures Referred By Contac t Referred To Contact Diagnoses Other vascular headache Vertebral artery dissection (HCC) Procedures CT HEAD W ANGIO Shadia Waterman MD [address] [place] [address] Phone: tel: fax: Referral ID Status Reason Start Date Expiration Date Visits Re quested Visits Authorized [id number] Open 04/16/2024 1 1 TEGIC PLANNING CONSULTANT * (Routine) - Open Specialty Diagnoses / Procedures Referred By Contac t Referred To Contact Diagnoses Other vascular headache Vertebral artery dissection (HCC) Procedures CT ANGIO NECK Shadia Waterman MD [address] [place] [address] [address] [place] [address] Phone: tel: fax: Referral ID Status Reason Start Date Expiration Date Visits Re quested Visits Authorized [id number] Open 04/16/2024 1 1 TEGIC PLANNING CONSULTANT * Other (Routine) - Open Specialty Diagnoses / Procedures Referred By Contac t Referred To Contact Diagnoses Other vascular headache Vertebral artery dissection (HCC) Procedures [facility]Y APPOINTMENT Shadia Waterman MD [address] [place] [address] [address] [place] [address] Phone: tel: fax: Referral ID Status Reason Start Date Expiration Date Visits Re quested Visits Authorized [id number] Open 07/15/2024 1 1 TEGIC PLANNING CONSULTANT Reason for Visit * Reason Comments Follow up * Other (Routine) - Open Specialty Diagnoses / Procedures Referred By Contomero t Referred To Contact Diagnoses Other vascular headache Procedures [facility] NEUROLOGY APPOINTMENT Shadia Waterman MD [address] [place] [address] Phone: tel: fax: Referral ID Status Reason Start Date Expiration Date Visits Re quested Visits Authorized [id number] Open 04/19/2024 1 1 Encounter Details Date Type Department Care Team (Late st Contact Info) Description 04/16/2024 9:30 AM STRATEGIC PLANNING CONSULTANT Office Visit [facility] [address] [place] [address] Shadia Waterman MD [address] [place] [address] [address] [place] [address] Vertebral artery dissection (HCC) (Primary Dx); Other vascular headache Social History Tobacco Use Types Packs/Day Years Used Date Smoking Tobacco: Never Smokeless Tobacco: Never Alcohol Use Standard Drinks/Week Comments Not Asked 0 (1 standard drink = 0.6 oz pur e alcohol) None since 2018 Sex and Gender Information Value Date Recorded Sex Assigned at Not on file Legal Sex Male 2:26 PM STRATEGIC PLANNING CONSULTANT Gender Identity Not on file Sexual Orientation Not on file documented as of this encounter Progress Notes * Shadia Waterman MD - 04/16/2024 9:30 AM CST Images from the original note were not included. [facility] [address] [place] [address], [address] [place] [address] Neurology Follow-up Assessment and Plan: # Right temporal headache-resolved Patient had a new onset right sided headache near the jainism. Biopsy was negative for GCA though hewas [...] software. Despite proofreading, occasional wrong word or '[id number]' substitutions may have occurred due to limitations of the software. Please read the chart carefully and recognize, using context, where these substitutions may haveoccurred. Shadia Waterman MD Fellowship trained Multiple Sclerosis and Neuroimmunology specialist [facility] Chief Complaint: No chief [...] Resource Strain: Low Risk (01/05/2024) Received from [employer] Resource Strain Difficulty of Paying Living Expenses: 3 Difficulty of Paying Living Expenses: Not on file Food Insecurity: No Food Insecurity (01/05/2024) Received from [employer] Food Insecurity Do you worry your food will run out before you are able to buy more?: 1 Transportation Needs: No Transportation Needs (01/05/2024) Received from [employer] Transportation Needs Does lack of transportation keep you from medical appointments?: 1 Does lack of transportation keep you from work, meetings or getting things that you need?: 1 Physical Activity: Not on file Stress: Not on file Social Connections: Socially Integrated (01/05/2024) [facility] Social Connections Do you often feel lonely or isolated from those around you?: 0 Intimate Partner Violence: Not on file Housing Stability: Low Risk (01/05/2024) [facility] Housing Stability What is your housing situation today?: 1 Review of System: ROS: Pertinent positive and negative systems are described in the HPI; the remainder of the 14 systems are negative. Physical Exam: General: no acute distress, well appearing CV: No LE edema Pulm: normal work of breathing MSK: no joint swelling or deformity. No tenderness at this time to the right jainism. Integument: no visible rash Psych: appropriate affect [...] and/or procedures, and documenting in the chart. TEGIC PLANNING CONSULTANT documented in this encounter Plan of Treatment [...] headache documented in this encounter Care Teams Fusing Line Inspector Relationship Specialty Start Date End Date Gabe Ma [address] [place] [address] PCP - General Family Medicine 03/21/24 documented as of this encounter
[2024-04-30 19:30] VITALS: O2SAT 96
[2024-04-30 20:00] VITALS: BP 135/74; PULSE 90; RESP 18; TEMP 36.7; O2SAT 94
[2024-04-30 21:09] VITALS: BP 135/74; PULSE 90; RESP 18; TEMP 36.7
== END 2024-04-30 21:10 | disposition home or self-care (01) ==
PROVIDERS: Emergency Provider Family Medicine; PCP Family Medicine
DX: J10.1 Influenza due to other identified influenza virus with other respiratory manifestations (principal); G44.1 Vascular headache, not elsewhere classified; I77.74 Dissection of vertebral artery
CPT/HCPCS: 71046; 87631; 94761; 99283; 99284

== ENCOUNTER 2025-04-04 14:30 | Outpatient (RCR) | payer OTHER, SELFPAY | END 2025-04-04 16:16 | disposition home or self-care (01) | PROVIDERS: PCP Family Medicine; Visit Provider Physician Assistant | DX: M54.2 Cervicalgia (principal); G89.29 Other chronic pain; M79.18 Myalgia, other site; Z51.89 Encounter for other specified aftercare | CPT/HCPCS: 97110; 97140; 97161 ==